=== PATIENT | female | born 1935 | race Caucasian/White ===

== ENCOUNTER 2016-11-07 02:34 | Emergency (ER) | payer MEDICARE ==
[2016-11-07 02:54] VITALS: RESP 18
[2016-11-07 03:51] LABS: BASO % 0.5 % (0.0-2.0); EOS # 0.1 K/uL (0.0-0.7); EOS % 1.3 % (0.0-4.0); HEMATOCRIT 40.6 % (34.0-47.0); LYMPH # 1.5 K/uL (1.0-4.3); MEAN CELL VOLUME 91.8 fL (81.0-99.0); MEAN CORPUSCULAR HEMOGLOBIN 31.3 pg (27.0-31.0); MEAN CORPUSCULAR HGB CONC 34.1 g/dL (33.0-37.0); MEAN PLATELET VOLUME 10.6 fL (7.2-11.7); MONO # 0.4 K/uL (0.0-0.8); MONO % 8.8 % (0.0-10.0); RED CELL DISTRIBUTION WIDTH 14.3 % (11.5-14.5); WHITE BLOOD COUNT 5.1 K/uL (4.8-10.8)
[2016-11-07 03:52] LABS: CHLORIDE 98 mmol/L (98-107); SODIUM 133 mmol/L (132-148)
[2016-11-07 03:55] LABS: ALB/GLOB RATIO 0.7 (1.0-2.1); ALKALINE PHOSPHATASE 219 U/L (38-126); ALT/SGPT 89 U/L (9-52); AST/SGOT 91 U/L (14-36); BILIRUBIN,TOTAL 0.9 mg/dL (0.2-1.3); BLOOD UREA NITROGEN 18 mg/dL (7-17); CARBON DIOXIDE 19 mmol/L (22-30); GFR AFRICAN-AMERICAN > 60; GLUCOSE,RANDOM 212 mg/dL (65-105); TOTAL PROTEIN 8.5 g/dL (6.3-8.3)
[2016-11-07 03:56] LABS: CALCIUM 8.8 mg/dl (8.6-10.4)
[2016-11-07] MEDS ORDERED: Sodium Chloride 0.9% 500 ML IV STA (04:06)
[2016-11-07] MEDS ORDERED: Sodium Chloride 0.9% 500 ML IV ONE ×2 (04:06→04:11)
--- NOTE | 2016-11-07 04:16 | CT ---
EXAM: CT Head Without Intravenous Contrast CLINICAL HISTORY: 81 years old, female; Pain; Headache; Headache not specified TECHNIQUE: Axial computed tomography images of the head/brain without intravenous contrast. All CT scans at this facility use one or more dose reduction techniques, viz.: automated exposure control; ma/kV adjustment per patient size (including targeted exams where dose is matched to indication; i.e. head); or iterative reconstruction technique. COMPARISON: No relevant prior studies available. FINDINGS: Brain: Mild atrophy. No intracranial hemorrhage. No mass. No definite edema. Ventricles: No hydrocephalus. Bones/joints: No acute fracture. Soft tissues: Unremarkable. Vasculature: Atherosclerotic disease of intracranial arteries. Sinuses: Scattered mild mucosal thickening of ethmoid sinuses. Mastoid air cells: No mastoid effusion. Orbits: Unremarkable as visualized. IMPRESSION: 1. No acute intracranial abnormality. 2. Incidental/non-acute findings are described above.
--- NOTE | 2016-11-07 05:24 | C.PDOC ---
History Of Present Illness 81 year old female with a Hx of vertigo who presents to the ER with a complaint of a headache. Patient states she checked her BP at home with her which showed a high reading which prompted visit. Patient states the headache has improved somewhat but still feels dizzy described as spinning sensation similar to her vertigo sx. Patient notes she has not taken her meclizine in the last few days. Pt also c/o of dry cough intermittently x 4 days. Denies weakness, visual complaints, chest pain, palpitations, nausea, or vomiting. Time Seen by Provider: 11/07/16 03:05 Chief Complaint (Nursing): Headache History Per: Patient History/Exam Limitations: no limitations Onset/Duration Of Symptoms: Hrs Current Symptoms Are (Timing): Still Present Severity: Mild Preceeding Symptoms: None Associated Symptoms: denies: Photophobia, Blurred Vision, Nausea, Vomiting, Extremity Weakness Recent travel outside of the [place]: No Past Medical History Reviewed: Historical Data, Nursing Documentation, Vital Signs Vital Signs: Last Vital Signs Temp 97.5 F L 11/07/16 02:50 Pulse 78 11/07/16 05:49 Resp 18 11/07/16 05:49 BP 175/67 H 11/07/16 05:49 Pulse Ox 98 11/07/16 06:03 - Medical History PMH: HTN, Hypothyroidism Surgical History: No Surg Hx Family History: States: Unknown Family Hx - Social History Hx Alcohol Use: No Hx Substance Use: No - Immunization History Hx Tetanus Toxoid Vaccination: No Hx Influenza Vaccination: Yes Hx Pneumococcal Vaccination: Yes Review Of Systems Constitutional: Negative for: Fever, Chills Cardiovascular: Negative for: Chest Pain, Palpitations Gastrointestinal: Negative for: Nausea, Vomiting, Diarrhea Neurological: Positive for: Headache, Dizziness. Negative for: Weakness, Numbness Physical Exam - Physical Exam Appears: Non-toxic, Other (Alert, Awake) Skin: Normal Color, Warm, Dry, No Other (petechial rash) Head: Atraumatic, Normacephalic Eye(s): bilateral: Normal Inspection, EOMI Ear(s): Bilateral: Normal Oral Mucosa: Moist, No Other (petechiae) Neck: Normal, Supple Chest: Symmetrical, No Tenderness Cardiovascular: Rhythm Regular, No Murmur Respiratory: Normal Breath Sounds, No Rales, No Rhonchi, No Wheezing Gastrointestinal/Abdominal: Soft, No Tenderness Extremity: Normal ROM (x4), No Pedal Edema Neurological/Psych: Oriented x3, Normal Speech, Normal Cognition Gait: Steady (came in ambulatory) ED Course And Treatment - Laboratory Results Result Diagrams: 11/07/16 03:39 11/07/16 03:39 O2 Sat by Pulse Oximetry: 98 (Room air) Pulse Ox Interpretation: Normal - CT Scan/US CT Head Other Rad Studies (CT/US): Read By Radiologist, Radiology Report Reviewed CT/US Interpretation: EXAM: CT Head Without Intravenous Contrast. CLINICAL HISTORY: 81 years old, female; Pain; Headache; Headache not specified. TECHNIQUE: Axial computed tomography images of the head/brain without intravenous contrast. All CT scans at. this facility use one or more dose reduction techniques, viz.: automated exposure control; ma/kV. adjustment per patient size (including targeted exams where dose is matched to indication; i.e. head);. or iterative reconstruction technique. COMPARISON: No relevant prior studies available. FINDINGS: Brain: Mild atrophy. No intracranial hemorrhage. No mass. No definite edema. Ventricles: No hydrocephalus. Bones/ joints: No acute fracture. Soft tissues: Unremarkable. Vasculature: Atherosclerotic disease of intracranial arteries. Sinuses: Scattered mild mucosal thickening of ethmoid sinuses. Mastoid air cells: No mastoid effusion. Orbits: Unremarkable as visualized. IMPRESSION: 1. No acute intracranial abnormality. 2. Incidental/non-acute findings are described above. Progress Note: EKG and head CT ordered. Antivert, zofran, and IV fluids administered. Labs results reviewed, no gross abnormalities noted, other than Plt 75- but pt with no petechiae. Patient is currently stable. Patient understands and agrees with treatment plan and is requesting to leave and will follow up with PMD in 1-2 days. Patient states she will wait until morning when her friend can pick her up. Reevaluation Time: 06:22 Reassessment Condition: Improved (Pt remains stable. BP elevated, but no longer dizzy, no headache. Pt has all meds and reports that she will take her meds at home) Disposition - Disposition Referrals: Grey Meza MD [Primary Care Provider] - Disposition: HOME/ ROUTINE Disposition Time: 06:30 Condition: STABLE Instructions: Vertigo (ED) Forms: [employer] (Urdu) - Clinical Impression Clinical Impression: Vertigo - Scribe Statement The provider has reviewed the documentation as recorded by the Scribe Jamin Christianson All medical record entries made by the Radhaibe were at my direction and personally dictated by me. I have reviewed the chart and agree that the record accurately reflects my personal performance of the history, physical exam, medical decision making, and the department course for this patient. I have also personally directed, reviewed, and agree with the discharge instructions and disposition.
[2016-11-07 06:04] VITALS: O2SAT 98
[2016-11-07 06:48] VITALS: BP 154/80; PULSE 80; TEMP 98
--- NOTE | 2016-11-09 09:24 | CARD ---
APPROVED REPORT EKG Measurement Heart [id number] [place] 186P11 [id number] <Conclusion> Normal sinus rhythm Normal ECG
== END 2016-11-07 06:48 | disposition home or self-care (01) ==
LOC: SUPCPDRO 02:34 → C.ER 02:34
DX: I10 Essential (primary) hypertension (principal); R42 Dizziness and giddiness
CPT/HCPCS: 70450; 80053; 85025; 93005; 96374; 99285; J2405; J7040

== ENCOUNTER 2017-12-31 09:28 | Emergency (ER) | payer MEDICARE ==
[2017-12-31 10:05] LABS: BASO % 0.6 % (0.0-2.0); EOS # 0.1 K/uL (0.0-0.7); EOS % 0.9 % (0.0-4.0); HEMOGLOBIN 12.4 g/dL (11.0-16.0); LYMPH # 1.3 K/uL (1.0-4.3); LYMPH % 20.6 % (20.0-40.0); MEAN CELL VOLUME 92.6 fL (81.0-99.0); MEAN CORPUSCULAR HEMOGLOBIN 32.1 pg (27.0-31.0); MEAN CORPUSCULAR HGB CONC 34.6 g/dL (33.0-37.0); MEAN PLATELET VOLUME 10.5 fL (7.2-11.7); MONO # 0.4 K/uL (0.0-0.8); MONO % 7.4 % (0.0-10.0); NEUT # 4.3 K/uL (1.8-7.0); NEUT % 70.5 % (50.0-75.0); NRBC % 0.1 % (0.0-2.0); RBC 3.85 Mil/uL (3.80-5.20); WHITE BLOOD COUNT 6.1 K/uL (4.8-10.8)
[2017-12-31 10:20] LABS: ALB/GLOB RATIO 0.7 (1.0-2.1); ALBUMIN 3.6 g/dL (3.5-5.0); BLOOD UREA NITROGEN 23 mg/dL (7-17); CALCIUM 8.6 mg/dl (8.6-10.4); GFR NON-AFRICAN AMERICAN 53
[2017-12-31] MEDS ORDERED: Aluminum Hydroxide/Magnesium Hydroxide Susp (30 mL) PO STA (10:21)
[2017-12-31 10:26] LABS: ALT/SGPT 66 U/L (9-52); AST/SGOT 105 U/L (14-36)
[2017-12-31] MEDS ORDERED: Aluminum Hydroxide/Magnesium Hydroxide Susp (30 mL) ONE (10:37)
[2017-12-31 10:48] LABS: B-TYPE NATRIURETIC PEPTIDE 471 pg/mL (0-900)
[2017-12-31 11:38] LABS: LIPASE 192 U/L (23-300)
--- NOTE | 2017-12-31 11:38 | RAD ---
Date of service: 12/31/2017 PROCEDURE: CHEST RADIOGRAPH, 1 VIEW HISTORY: chest pain COMPARISON: None available. FINDINGS: LUNGS: No infiltrate. Linear scar/atelectasis extending from left hilum. PLEURA: No pneumothorax or pleural fluid seen. CARDIOVASCULAR: Normal heart size. Mild congestive change. OSSEOUS STRUCTURES: No significant abnormalities. VISUALIZED UPPER ABDOMEN: Normal. OTHER FINDINGS: None. IMPRESSION: Mild congestive change. No infiltrate. No pleural effusion.
[2017-12-31 12:05] VITALS: O2SAT 100
--- NOTE | 2017-12-31 12:14 | US ---
HISTORY: elevated LFT's COMPARISON: None available. TECHNIQUE: Sonographic evaluation of the abdomen. FINDINGS: LIVER: Measures 15.4 cm in sagittal dimension. Hepatic contour appears nodular. Heterogeneous hepatic parenchyma may be seen in setting of hepatic parenchymal disease or fatty infiltration. No focal hepatic mass identified. The main portal vein appears patent with normal directional flow. No intrahepatic bile duct dilatation. GALLBLADDER: Not visualized. COMMON BILE DUCT: Measures 8 mm. PANCREAS: Not well visualized. RIGHT KIDNEY: Measures 12.2 x 4.3 x 4.4cm. No obstructing calculus or hydronephrosis identified. LEFT KIDNEY: Measures 11.1 x 4.5 x 5.3cm. No obstructing calculus or hydronephrosis identified. SPLEEN: Measures approximately 15.2 cm. AORTA: Limited visualization appears grossly unremarkable. IVC: Limited visualization appears grossly unremarkable. OTHER FINDINGS: Small upper abdominal ascites. IMPRESSION: Heterogeneous hepatic parenchyma may be seen in setting of hepatic parenchymal disease or fatty infiltration. Hepatic contour appears nodular. Correlate clinically. Small upper abdominal ascites. Dilated common bile duct measures approximately 8 mm. The gallbladder is not visualized; correlate for cholecystectomy. Splenomegaly.
--- NOTE | 2017-12-31 13:36 | C.PDOC ---
History Of Present Illness 82 y/o female presents to ED with c/o epigastric abdominal pain since this morning. Patient states pain is consistent with gastritis and reflux, took Taylor seltzer with some relief. Patient denies chest pain, sob, nausea, vomiting or any other complaints at this time. Time Seen by Provider: 12/31/17 09:37 Chief Complaint (Nursing): Chest Pain History Per: Patient History/Exam Limitations: no limitations Onset/Duration Of Symptoms: Days Current Symptoms Are (Timing): Still Present Past Medical History Reviewed: Historical Data, Nursing Documentation, Vital Signs Vital Signs: Last Vital Signs Temp 98.4 F 12/31/17 12:01 Pulse 71 12/31/17 12:01 Resp 16 12/31/17 12:01 BP 132/78 12/31/17 12:01 Pulse Ox 100 12/31/17 12:01 - Medical History PMH: HTN, Hypothyroidism Surgical History: No Surg Hx Family History: States: No Known Family Hx - Social History Hx Alcohol Use: No Hx Substance Use: No - Immunization History Hx Tetanus Toxoid Vaccination: No Hx Influenza Vaccination: Yes Hx Pneumococcal Vaccination: Yes Review Of Systems Constitutional: Negative for: Fever, Chills Cardiovascular: Negative for: Chest Pain Respiratory: Negative for: Shortness of Breath Gastrointestinal: Positive for: Abdominal Pain. Negative for: Nausea, Vomiting, Diarrhea Physical Exam - Physical Exam Appears: Non-toxic, No Acute Distress Skin: Warm, Dry, No Rash Head: Atraumatic, Normacephalic Eye(s): bilateral: Normal Inspection Oral Mucosa: Moist Neck: Normal ROM, Supple Cardiovascular: Rhythm Regular Respiratory: Normal Breath Sounds, No Rales, No Rhonchi, No Wheezing Gastrointestinal/Abdominal: Soft, No Tenderness, No Guarding, No Rebound Back: No CVA Tenderness Neurological/Psych: Oriented x3, Normal Speech, Normal Cognition ED Course And Treatment - Laboratory Results Result Diagrams: 12/31/17 10:02 12/31/17 10:02 ECG: Interpreted By Me, Viewed By Me ECG Rhythm: Sinus Rhythm Rate From EC (BPM ) O2 Sat by Pulse Oximetry: 100 (RA) Pulse Ox Interpretation: Normal Progress Note: On re evaluation patient states she feels better and agrees to be discharged with follow up to PMD in 1-2 days. Disposition - Disposition Referrals: Grey Meza MD [Staff Provider] - Disposition: HOME/ ROUTINE Disposition Time: 12:00 Condition: IMPROVED Additional Instructions: MACK RICARDO, thank you for letting us take care of you today. The emergency medical care you received today was directed at your acute symptoms. If you were prescribed any medication, please fill it and take as directed. It may take several days for your symptoms to resolve. Return to the Emergency Department if your symptoms worsen, do not improve, or if you have any other problems. Please contact your doctor or call one of the physicians/clinics you have been referred to that are listed on the Patient Visit Information form that is included in your discharge packet. Bring any paperwork you were given at dis charge with you along with any medications you are taking to your follow up visit. Our treatment cannot replace ongoing medical care by a primary care provider outside of the emergency department. Thank you for allowing the [facility] team to be part of your care today. Follow up with your primary care doctor in 2-3 days for re-evaluation and further management. Prescriptions: Famotidine [Pepcid] 20 mg PO BID #14 tab Instructions: Dolphin Diet, Gastritis (DC) Forms: [employer] (Beninese) - Clinical Impression Clinical Impression: Gastritis - Scribe Statement The provider has reviewed the documentation as recorded by the Scribe Elvis Lopez All medical record entries made by the Radhaibe were at my direction and person ally dictated by me. I have reviewed the chart and agree that the record accurately reflects my personal performance of the history, physical exam, medical decision making, and the department course for this patient. I have also personally directed, reviewed, and agree with the discharge instructions and disposition.
[2017-12-31 13:39] VITALS: BP 134/80; PULSE 76; RESP 18; TEMP 97.5
--- NOTE | 2018-01-04 17:57 | CARD ---
APPROVED REPORT Date of service: 12/31/2017 EKG Measurement Heart [id number] [place] [id number] [id number] <Conclusion> Normal sinus rhythm Nonspecific ST abnormality Abnormal ECG
== END 2017-12-31 13:39 | disposition home or self-care (01) ==
LOC: C.ER 09:28
DX: K29.70 Gastritis, unspecified, without bleeding (principal)

== ENCOUNTER 2018-01-11 14:21 | Emergency (ER) | payer MEDICARE ==
[2018-01-11] MEDS ORDERED: Sodium Chloride 0.9% 1,000 ML IV ONE (15:14)
[2018-01-11 15:16] LABS: BASO % 0.6 % (0.0-2.0); EOS # 0.1 K/uL (0.0-0.7); EOS % 1.8 % (0.0-4.0); HEMOGLOBIN 13.3 g/dL (11.0-16.0); LYMPH # 1.4 K/uL (1.0-4.3); LYMPH % 28.1 % (20.0-40.0); MEAN CELL VOLUME 94.5 fL (81.0-99.0); MEAN CORPUSCULAR HEMOGLOBIN 31.9 pg (27.0-31.0); MEAN CORPUSCULAR HGB CONC 33.8 g/dL (33.0-37.0); MEAN PLATELET VOLUME 10.5 fL (7.2-11.7); MONO # 0.3 K/uL (0.0-0.8); MONO % 6.8 % (0.0-10.0); NEUT # 3.1 K/uL (1.8-7.0); NEUT % 62.7 % (50.0-75.0); NRBC % 0.1 % (0.0-2.0); RBC 4.16 Mil/uL (3.80-5.20); RED CELL DISTRIBUTION WIDTH 14.5 % (11.5-14.5); WHITE BLOOD COUNT 4.9 K/uL (4.8-10.8)
[2018-01-11 15:30] LABS: ALB/GLOB RATIO 0.7 (1.0-2.1); ALBUMIN 3.8 g/dL (3.5-5.0); ALT/SGPT 67 U/L (9-52); AST/SGOT 110 U/L (14-36); BLOOD UREA NITROGEN 19 mg/dL (7-17); CALCIUM 8.6 mg/dl (8.6-10.4); GFR NON-AFRICAN AMERICAN > 60
[2018-01-11 15:32] LABS: VENOUS BLOOD GAS BASE EXCESS 0.8 mmol/L (0.0-2.0); VENOUS BLOOD GAS PCO2 46 mmHg (40-60); VENOUS BLOOD GAS PO2 27 mm/Hg (30-55); VENOUS BLOOD PH 7.37 (7.32-7.43)
[2018-01-11] MEDS ORDERED: (Novolin R) Insulin Human Regular 100 units/ml vial IVP STA (15:32)
[2018-01-11] MEDS ORDERED: Sodium Chloride 0.9% 1,000 ML ONE (15:35)
[2018-01-11] MEDS ORDERED: (Novolin R) Insulin Human Regular 100 units/ml vial ONE (15:42)
--- NOTE | 2018-01-11 16:16 | C.PDOC ---
History Of Present Illness 82 y/o female,w/PMhx of Diabetes and HTN, presents to the ER for evaluation of high blood sugar levels. Patient states that she was seen by her PMD and her blood sugar levels were found to be greater than 500 in the office. pt was reportly "confused", although she is oriented x 3 in er. Her PMD advised her to visit the ER. Denies having headache, dizziness, CP, SOB, nausea, and vomiting. Time Seen by Provider: 01/11/18 15:00 Chief Complaint (Nursing): High Blood Sugar History Per: Patient History/Exam Limitations: no limitations Onset/Duration Of Symptoms: Hrs Current Symptoms Are (Timing): Still Present Severity: Moderate Past Medical History Reviewed: Historical Data, Nursing Documentation, Vital Signs Vital Signs: Last Vital Signs Temp 97.7 F 01/11/18 14:34 Pulse 76 01/11/18 14:34 Resp 16 01/11/18 14:34 BP 143/80 01/11/18 14:34 Pulse Ox 100 01/11/18 14:34 - Medical History PMH: Diabetes, HTN, Hypothyroidism Surgical History: No Surg Hx Family History: States: No Known Family Hx - Social History Hx Alcohol Use: No Hx Substance Use: No - Immunization History Hx Tetanus Toxoid Vaccination: No Hx Influenza Vaccination: Yes Hx Pneumococcal Vaccination: Yes Review Of Systems Except As Marked, All Systems Reviewed And Found Negative. Constitutional: Negative for: Fever, Chills Cardiovascular: Negative for: Chest Pain Respiratory: Negative for: Shortness of Breath Gastrointestinal: Negative for: Nausea, Vomiting Physical Exam - Physical Exam Appears: Non-toxic, No Acute Distress Skin: Normal Color, Warm, Dry Head: Atraumatic, Normacephalic Eye(s): bilateral: Normal Inspection Nose: Normal Oral Mucosa: Moist Neck: Supple Chest: Symmetrical Cardiovascular: Rhythm Regular Respiratory: Normal Breath Sounds, No Rales, No Rhonchi, No Wheezing Gastrointestinal/Abdominal: Normal Exam, Soft, No Tenderness, No Guarding, No Rebound Neurological/Psych: Oriented x3, Normal Speech ED Course And Treatment - Laboratory Results Result Diagrams: 01/11/18 15:10 01/11/18 15:10 ECG: Interpreted By Me, Viewed By Me ECG Rhythm: Sinus Rhythm Interpretation Of ECG: NSR with no ST/T wave changes Rate From EC O2 Sat by Pulse Oximetry: 100 (RA) Pulse Ox Interpretation: Normal - Radiology CXR: Interpreted by Me, Viewed By Me CXR Interpretation: Yes: No Acute Disease Medical Decision Making Medical Decision Making: Plan: --Labs --EKG --UA --Insulin IV --IV Fluids labs ct neg. noted mild elevated lfts. ct shows cirrhotic liver. abd soft nottp. lfts no interval change. notified of finds advised outpt [facility]. n [facility] e[facility] of d[facility] Disposition - Disposition Disposition: HOME/ ROUTINE Disposition Time: 21:00 Condition: GOOD Additional Instructions: return to er with worsening symptoms or concerns. please discuss all lab tests with your doctor. you will need further testing as an outpatient. return immedaitely with any worsening. Instructions: Hyperglycemia, Adult Forms: [employer] ([place]) - Clinical Impression Clinical Impression: Hyperglycemia - Scribe Statement The provider has reviewed the documentation as recorded by the Radhaibe Mis Kitchen Provider Attestation: All medical record entries made by the Scribe were at my direction and personally dictated by me. I have reviewed the chart and agree that the record accurately reflects my personal performance of the history, physical exam, medical decision making, and the department course for this patient. I have also personally directed, reviewed, and agree with the discharge instructions and disposition.
--- NOTE | 2018-01-11 16:23 | RAD ---
Date of service: 01/11/2018 HISTORY: hyperglycemia COMPARISON: 12/31/2017 FINDINGS: LUNGS: The lungs are well inflated and clear. There is linear scarring in the left lobe there is mild pulmonary venous congestion. PLEURA: No pleural effusions or pneumothorax. CARDIOVASCULAR: There is mild cardiomegaly. Atherosclerotic aortic arch calcifications are present. OSSEOUS STRUCTURES: Within normal limits for the patient's age. VISUALIZED UPPER ABDOMEN: Normal. OTHER FINDINGS: None. IMPRESSION: No active pulmonary disease.
[2018-01-11] MEDS ORDERED: Magnesium Sulfate 1 gm in D5W 1 GM/100 ML BAG IVPB ONE ×2 (17:44→18:00)
[2018-01-11 18:31] VITALS: O2SAT 100
[2018-01-11 18:42] LABS: SQUAMOUS EPITHIAL 1 /hpf (0-5); URINE BILIRUBIN NEGATIVE (NEGATIVE); URINE BLOOD 1+ (NEGATIVE); URINE CLARITY Clear (Clear); URINE COLOR Yellow (YELLOW); URINE GLUCOSE (UA) 3+ mg/dL (Normal); URINE LEUKOCYTE ESTERASE NEG Leu/uL (Negative); URINE PROTEIN NEGATIVE (NEGATIVE)
[2018-01-11 19:40] VITALS: BP 138/63; RESP 20
[2018-01-11 21:48] VITALS: PULSE 84; TEMP 97.9
--- NOTE | 2018-01-12 08:32 | CT ---
Date of service: 01/11/2018 PROCEDURE: CT HEAD WITHOUT CONTRAST. HISTORY: ams COMPARISON: 11/07/2016 TECHNIQUE: Axial computed tomography images were obtained through the head/brain without intravenous contrast. Radiation dose: Total exam DLP = 1108.02 mGy-cm. This CT exam was performed using one or more of the following dose reduction techniques: Automated exposure control, adjustment of the mA and/or kV according to patient size, and/or use of iterative reconstruction technique. FINDINGS: HEMORRHAGE: No intracranial hemorrhage. BRAIN: No mass effect or edema. No significant atrophy. Minimal chronic periventricular white matter lucency consistent with microvascular ischemic change. No evidence of acute infarct. 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 VENTRICLES: Unremarkable. No hydrocephalus. CALVARIUM: Unremarkable. PARANASAL SINUSES: Unremarkable as visualized. No significant inflammatory changes. MASTOID AIR CELLS: Unremarkable as visualized. No inflammatory changes. OTHER FINDINGS: None. IMPRESSION: No intracranial mass, hemorrhage or evidence of acute infarct. Mild chronic white matter ischemic change. 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 The preliminary findings for this examination were reported by [facility] at 8:28 p.m. on 01/11/2018. There is concurrence of this report with the preliminary findings.
--- NOTE | 2018-01-12 13:25 | CT ---
Date of service: 01/11/2018 PROCEDURE: CT Abdomen and Pelvis without intravenous contrast HISTORY: abnormal lfts COMPARISON: Not available TECHNIQUE: Without contrast.. Contrast dose: 0 Radiation dose: Total exam DLP = 1041.25 mGy-cm. This CT exam was performed using one or more of the following dose reduction techniques: Automated exposure control, adjustment of the mA and/or kV according to patient size, and/or use of iterative reconstruction technique. FINDINGS: LOWER THORAX: Unremarkable. LIVER: Nodular contour consistent with hepatic cirrhosis. Normal size. No biliary dilatation. No discrete mass. Mildly heterogeneous attenuation. This is a nonspecific finding. GALLBLADDER AND BILE DUCTS: Status post cholecystectomy. There is dilation of the common bile duct up to 13 mm. There is no associated intrahepatic bile duct dilatation. This may be due to prior cholecystectomy and age related ectasia. Correlate with laboratory evaluation for evidence of biliary obstruction. PANCREAS: Unremarkable. No gross lesion or ductal dilatation. SPLEEN: Splenomegaly. The spleen measures approximately 16.4 cm in greatest dimension. No focal mass. ADRENALS: Unremarkable. No mass. KIDNEYS AND URETERS: Unremarkable. No hydronephrosis. No solid mass. VASCULATURE: Unremarkable. No aortic aneurysm. There is atherosclerotic calcification of the abdominal aorta. BOWEL: There is marked circumferential mural thickening of the proximal duodenum involving the 1st and 2nd portions. This is a nonspecific finding. No other abnormal bowel loops are identified. There is no bowel obstruction. There are surgical clips seen adjacent to the gastric cardia of uncertain significance. Please correlate with surgical history. APPENDIX: Unremarkable. Normal appendix. PERITONEUM: Mild ascites. There is moderate mesenteric edema noted common nonspecific. LYMPH NODES: There is an isolated left para-aortic retroperitoneal node, 13 mm in short axis. There is no generalized lymphadenopathy. Shotty subcentimeter retroperitoneal lymph nodes are identified. BLADDER: Unremarkable. REPRODUCTIVE: Unremarkable uterus BONES: No acute fracture. OTHER FINDINGS: None. IMPRESSION: Hepatic cirrhosis. Splenomegaly. Ascites. Cholecystectomy. Dilated common bile duct without associated intrahepatic biliary dilatation. Uncertain significance. Correlate with laboratory evaluation for any evidence of biliary obstruction. Mural thickening of the proximal duodenum, nonspecific. Mesenteric edema, nonspecific. Minor findings as above. The preliminary findings for this examination were reported by [facility] at 8:48 p.m. on 01/11/2018. There is concurrence of this report with the preliminary findings.
--- NOTE | 2018-01-12 17:08 | CARD ---
APPROVED REPORT Date of service: 01/11/2018 EKG Measurement Heart [id number] [place] 178P89 [id number] <Conclusion> Normal sinus rhythm Low voltage QRS Borderline ECG
== END 2018-01-11 21:48 | disposition home or self-care (01) ==
LOC: C.ER 14:21
DX: E11.65 Type 2 diabetes mellitus with hyperglycemia (principal); I10 Essential (primary) hypertension; E03.9 Hypothyroidism, unspecified
CPT/HCPCS: 70450; 71045; 74176; 80053; 81001; 82009; 82803; 82948; 83735; 83930; 84443; 84484; 85025; 93005; 96361; 96365; 96375; 99285; J3475; J7030

== ENCOUNTER 2018-03-12 15:27 | Inpatient (IN) | payer MEDICARE ==
--- NOTE | 2018-03-12 16:15 | C.PDOC ---
History Of Present Illness Patient is a 83 year old female who presents to the ED c/o generalized malaise, weakness, nausea, body aches and states that "she does not feel well and feels confused." Patient notes that her blood sugar was 500 yesterday. Patient denies fever, chills, CP, SOB, vomiting, headache, or diarrhea. <Marifer Reza - Last Filed: 03/12/18 19:02> History Per: Patient History/Exam Limitations: no limitations Onset/Duration Of Symptoms: Hrs Current Symptoms Are (Timing): Still Present Associated Symptoms: denies: Chest Pain, Headache Recent travel outside of the [place]: No Additional History Per: Patient <Marifer Reza - Last Filed: 03/12/18 19:02> <Briana Benavidez - Last Filed: 03/12/18 20:43> Chief Complaint (Nursing): High Blood Pressure Past Medical History Reviewed: Historical Data, Nursing Documentation, Vital Signs Vital Signs: Last Vital Signs Temp 98.4 F 03/12/18 15:40 Pulse 60 03/12/18 15:40 Resp 18 03/12/18 15:40 BP 124/56 L 03/12/18 15:40 Pulse Ox 100 03/12/18 15:40 - Medical History PMH: Diabetes, HTN, Hypothyroidism Surgical History: No Surg Hx Family History: States: Unknown Family Hx - Social History Hx Alcohol Use: No Hx Substance Use: No - Immunization History Hx Tetanus Toxoid Vaccination: No Hx Influenza Vaccination: Yes Hx Pneumococcal Vaccination: Yes <Marifer Reza - Last Filed: 03/12/18 19:02> Vital Signs: Last Vital Signs Temp 97.5 F L 03/12/18 18:09 Pulse 55 L 03/12/18 18:09 Resp 16 03/12/18 18:09 BP 118/77 03/12/18 18:09 Pulse Ox 100 03/12/18 19:07 <Briana Benavidez - Last Filed: 03/12/18 20:43> Review Of Systems Constitutional: Positive for: Weakness, Malaise, Other (body aches). Negative for: Fever, Chills Cardiovascular: Negative for: Chest Pain Respiratory: Negative for: Shortness of Breath Gastrointestinal: Positive for: Nausea. Negative for: Vomiting, Diarrhea <Marifer Reza - Last Filed: 03/12/18 19:02> Physical Exam - Physical Exam Appears: Non-toxic, Other (ill appearing ) Skin: Normal Color, Warm, Dry Head: Atraumatic, Normacephalic Eye(s): bilateral: Normal Inspection Oral Mucosa: Moist Neck: Normal ROM, Supple Chest: Symmetrical Cardiovascular: Rhythm Regular Respiratory: Normal Breath Sounds, No Rales, No Rhonchi, No Wheezing Gastrointestinal/Abdominal: Soft, No Tenderness Extremity: Normal ROM, Pedal Edema (bilateral ) Neurological/Psych: Oriented x3 <Marifer Reza - Last Filed: 03/12/18 19:02> ED Course And Treatment - Laboratory Results Result Diagrams: 03/12/18 16:43 03/12/18 16:43 O2 Sat by Pulse Oximetry: 100 (on RA) Pulse Ox Interpretation: Normal - Radiology CXR: Interpreted by Me, Viewed By Me CXR Interpretation: Yes: No Acute Disease Progress Note: Bloodwork, EKG, CXR, Flu Swab, Urinalysis ordered. Zofran 4 mg IVP administered. Labs reviewed. Patient has elevated blood sugar at 225, low magnesium and calcium levels. Patient is negative for influenza. <MikyfernandoMarifer - Last Filed: 03/12/18 19:02> - Laboratory Results Result Diagrams: 03/12/18 16:43 03/12/18 16:43 <JerzyjenifferHannajennifer - Last Filed: 03/12/18 20:43> Disposition - Disposition Disposition Time: 19:02 <LibiaMarifer - Last Filed: 03/12/18 19:02> Discussed With : Jose Luis Pulliam Comment: accepted the pt on his service and took over the care at 8:42 PM Doctor Will See Patient In The: ED Counseled Patient/Family Regarding: Studies Performed, Diagnosis - POA Present On Arrival: Poor Glycemic Control <Briana Benavidez - Last Filed: 03/12/18 20:43> - Disposition Disposition: HOSPITALIZED Condition: FAIR Instructions: Weakness (ED) Forms: [employer] (Setswana) - Clinical Impression Clinical Impression: Confused, Weakness, Hyperammonemia, Ascites, Leg edema - PA / SILK SCREEN ETCHER / Resident Statement MD/DO has reviewed & agrees with the documentation as recorded. - Scribe Statement The provider has reviewed the documentation as recorded by the Scribe Chasity Pych All medical record entries made by the Tara were at my direction and personally dictated by me. I have reviewed the chart and agree that the record accurately reflects my personal performance of the history, physical exam, medi allyson decision making, and the department course for this patient. I have also personally directed, reviewed, and agree with the discharge instructions and disposition. <Marifer Reza - Last Filed: 03/12/18 19:02> Physician Patient Turnover Patient Signed Over To: Briana Benavidez Handoff Comments: dispo <Marifer Reza - Last Filed: 03/12/18 19:02> Decision To Admit <Marifer Reza - Last Filed: 03/12/18 19:02> - Pt Status Changed To: Hospital Disposition Of: Inpatient - Admit Certification Admit to Inpatient:: After my assessment, the patient will require hospitalization for at least two midnights. This is because of the severity of symptoms shown, intensity of services needed, and/or the medical risk in this patient being treated as an outpatient. - InPatient: Physician Admission Certification: I certify that this patient requires 2 or more midnights of care for the following reason:: After my assessment, the patient will require hospitalization for at least two midnights. This is because of the severity of symptoms shown, intensity of services needed, and/or the medical risk in this patient being treated as an outpatient. - . Bed Request Type: Regular Admitting Physician: Jose Luis Pulliam <Briana Benavidez - Last Filed: 03/12/18 20:43> - . Patient Diagnosis: Confused, Weakness, Hyperammonemia, Ascites, Leg edema
[2018-03-12 16:47] LABS: BASO % 0.8 % (0.0-2.0); EOS # 0.1 K/uL (0.0-0.7); EOS % 2.2 % (0.0-4.0); HEMOGLOBIN 12.3 g/dL (11.0-16.0); LYMPH # 1.6 K/uL (1.0-4.3); LYMPH % 27.6 % (20.0-40.0); MEAN CELL VOLUME 94.8 fL (81.0-99.0); MEAN CORPUSCULAR HEMOGLOBIN 32.1 pg (27.0-31.0); MEAN CORPUSCULAR HGB CONC 33.9 g/dL (33.0-37.0); MEAN PLATELET VOLUME 9.9 fL (7.2-11.7); MONO # 0.6 K/uL (0.0-0.8); MONO % 10.1 % (0.0-10.0); NEUT # 3.5 K/uL (1.8-7.0); NEUT % 59.3 % (50.0-75.0); NRBC % 0.1 % (0.0-2.0); RBC 3.83 Mil/uL (3.80-5.20); WHITE BLOOD COUNT 5.8 K/uL (4.8-10.8)
[2018-03-12 16:52] LABS: INR 1.2; PROTHROMBIN TIME 12.8 SECONDS (9.7-12.2)
[2018-03-12 17:02] LABS: ALB/GLOB RATIO 0.7 (1.0-2.1); ALBUMIN 3.4 g/dL (3.5-5.0); ALT/SGPT 52 U/L (9-52); AST/SGOT 88 U/L (14-36); BLOOD UREA NITROGEN 21 mg/dL (7-17); CALCIUM 8.1 mg/dl (8.6-10.4); GFR NON-AFRICAN AMERICAN 53; LIPASE 89 U/L (23-300)
[2018-03-12 17:14] LABS: B-TYPE NATRIURETIC PEPTIDE 548 pg/mL (0-900); CK-MB 2.08 ng/mL (0.0-3.38)
[2018-03-12 18:09] LABS: SQUAMOUS EPITHIAL 2 /hpf (0-5); URINE BACTERIA RARE (<OCC); URINE BILIRUBIN NEGATIVE (NEGATIVE); URINE BLOOD 1+ (NEGATIVE); URINE CLARITY Clear (Clear); URINE COLOR Yellow (YELLOW); URINE GLUCOSE (UA) NORMAL (Normal); URINE LEUKOCYTE ESTERASE NEG Leu/uL (Negative); URINE PROTEIN NEGATIVE (NEGATIVE)
--- NOTE | 2018-03-12 19:32 | RAD ---
HISTORY: 'Not feeling good' COMPARISON: Chest x-ray performed 01/11/18 TECHNIQUE: Chest, one view. FINDINGS: Examination limited by habitus and hypoinflation. LUNGS: Moderate pulmonary venous congestion and suspected infiltrate within the upper lobes. No significant pleural effusion or definite pneumothorax. CARDIOVASCULAR: Cardiomegaly. Atherosclerotic calcifications of an ectatic aorta. OSSEOUS STRUCTURES: Degenerative changes. Osseous demineralization. VISUALIZED UPPER ABDOMEN: Unremarkable. OTHER FINDINGS: None. IMPRESSION: Moderate pulmonary venous congestion and suspected infiltrate within the upper lobes.
[2018-03-12 20:29] LABS: VENOUS BLOOD GAS BASE EXCESS -2.6 mmol/L (0.0-2.0); VENOUS BLOOD GAS PCO2 43 mmHg (40-60); VENOUS BLOOD GAS PO2 26 mm/Hg (30-55); VENOUS BLOOD PH 7.34 (7.32-7.43)
[2018-03-12] MEDS ORDERED: Piperacillin/Tazobact 3.375 gm 100 ML IVPB STA (20:31)
[2018-03-12] MEDS ORDERED: Sodium Chloride 0.9% 1,000 ML IV ONE (20:34)
[2018-03-12] MEDS ORDERED: Piperacillin/Tazobact 3.375 gm 100 ML IVPB ONE (20:42)
--- NOTE | 2018-03-12 20:42 | CT ---
Date of service: 03/12/2018 PROCEDURE: CT HEAD WITHOUT CONTRAST. HISTORY: feeling confused COMPARISON: Noncontrast head CT performed 01/11/18 TECHNIQUE: Axial computed tomography images were obtained through the head/brain without intravenous contrast. Radiation dose: Total exam DLP = 819.39 mGy-cm. This CT exam was performed using one or more of the following dose reduction techniques: Automated exposure control, adjustment of the mA and/or kV according to patient size, and/or use of iterative reconstruction technique. FINDINGS: HEMORRHAGE: No intracranial hemorrhage. BRAIN: No mass effect or edema. Dense intracranial atherosclerosis. Chronic appearing lacunar type infarcts brainstem. Scattered periventricular and subcortical white matter hypodensities, which are nonspecific, but often seen with chronic microvascular ischemic disease. Please note that MRI with diffusion imaging is more sensitive in the detection of acute ischemic event. VENTRICLES: No hydrocephalus. CALVARIUM: Unremarkable. PARANASAL SINUSES: Unremarkable as visualized. No significant inflammatory changes. MASTOID AIR CELLS: Unremarkable as visualized. No inflammatory changes. OTHER FINDINGS: None. IMPRESSION: Nonspecific white matter changes as above. Chronic appearing lacunar type infarcts involving the brainstem. Preliminary impression was provided by [employer].
[2018-03-12 21:15] LABS: VENOUS BLOOD GAS PCO2 40 mmHg (40-60); VENOUS BLOOD GAS PO2 29 mm/Hg (30-55); VENOUS BLOOD PH 7.37 (7.32-7.43)
--- NOTE | 2018-03-12 22:23 | CP.PCM.HP ---
<Jaxson Morin - Last Filed: 03/12/18 22:35> History of Present Illness - History of Present Illness History of Present Illness: PGY-[address] History and [address] Pulliam Patient is a 83 year old female PMHx HTN, DM who presents due to confusion/altered mental status. Patient states that day prior to admission she checked her blood sugar and it was 560. She states that today she was not feeling well. When questioned, she stated that she just felt confused and not well and so called 911 and was brought to hospital via ambulance. She denies any symptoms other than confusion mild headache. On labwork, patient found to have elevated ammonia - she denies current alcohol use, stating that she used to drink when she was young, and denies any history of hepatitis or drug use. Accurate history difficult to obtain as patient does appear to have altered mental status. PMHx: DM, HTN - Denies CHF/any heart problems, denies history of liver dysfunction Surgeries: Prior surgery which she cannot remember (points to abdomen) Allergies: NKA Medications: Valsartan/HCTZ 320-25 mjg daily, Metoprolol Succinate 200 mg po daily, Norvasc 5 mg po daily, Jentadueto 2.5-1000 BID , Glimeperide 4 mg BID, terazosin 1 mg daily, omeprazone 20 mg poo daily, meclizine 25 mg prn dizzines, antacid, lasix 40 mg po daily Social: Denies current alcohol use, former smoker, denies drug use. Retired, lives alone in adult usp community. Family hxL unknown PMD: Dr. Jolly Present on Admission - Present on Admission Any Indicators Present on Admission: No Review of Systems - Review of Systems Systems not reviewed;Unavailable: Altered Mental Status - Constitutional Constitutional: Headache, Malaise - EENT Eyes: absent: Blurred Vision, Change in Vision - Cardiovascular Cardiovascular: Leg Edema. absent: Chest Pain, Dyspnea - Respiratory Respiratory: absent: Cough, Dyspnea - Gastrointestinal Gastrointestinal: Bloating. absent: Abdominal Pain, Diarrhea - Musculoskeletal Musculoskeletal: absent: Back Pain, Muscle Cramps - Neurological Neurological: Confusion. absent: Dizziness, Numbness - Psychiatric Psychiatric: absent: Anxiety, Depression - Endocrine Endocrine: absent: Polydipsia, Polyphagia - Hematologic/Lymphatic Hematologic: absent: Easy Bleeding, Easy Bruising Past Patient History - Infectious Disease Hx of Infectious Diseases: None - Past Social History Smoking Status: Never Smoked - CARDIAC Hx Hypertension: Yes - NEUROLOGICAL Hx Vertigo: Yes (does not take meclizine prescribed) - ENDOCRINE/METABOLIC Hx Hypothyroidism: Yes - GASTROINTESTINAL Hx Gastroesophageal Reflux: Yes - PSYCHIATRIC Hx Substance Use: No - SURGICAL HISTORY Hx Surgeries: No - ANESTHESIA Hx Anesthesia: No Meds Allergies/Adverse Reactions: Allergies Allergy/AdvReac Type Severity Reaction Status Date / Time No Known Allergies Allergy Verified 01/11/18 14:34 Physical Exam - Constitutional Appears: Confused - Head Exam Head Exam: ATRAUMATIC, NORMOCEPHALIC - Eye Exam Eye Exam: EOMI - ENT Exam ENT Exam: Mucous Membranes Moist - Respiratory Exam Respiratory Exam: Clear to Auscultation Bilateral, NORMAL BREATHING PATTERN. absent: Rhonchi, Wheezes - Cardiovascular Exam Cardiovascular Exam: REGULAR RHYTHM, +S1, +S2 - GI/Abdominal Exam GI & Abdominal Exam: Distended, Normal Bowel Sounds, Soft. absent: Tenderness - Extremities Exam Extremities exam: Positive for: pedal edema (pedal edema b/l) Additional comments: Area of erythema on RLE that is tender to touch - Neurological Exam Neurological exam: Altered - Psychiatric Exam Psychiatric exam: Normal Affect, Normal Mood - Skin Skin Exam: Dry, Intact Results - Vital Signs Recent Vital Signs: Last Vital Signs Temp 97.6 F 03/12/18 21:40 Pulse 84 03/12/18 21:40 Resp 17 03/12/18 21:40 BP 152/85 H 03/12/18 21:40 Pulse Ox 99 03/12/18 21:40 - Labs Result Diagrams: 03/12/18 16:43 03/12/18 16:43 Labs: Laboratory Results - last 24 hr 03/12/18 03/12/18 03/12/18 08:26 15:36 16:03 WBC RBC Hgb Hct MCV MCH MCHC RDW Plt Count MPV Neut % (Auto) Lymph % (Auto) [place] % (Auto) Eos % (Auto) Baso % (Auto) Neut # (Auto) Lymph # (Auto) [place] # (Auto) Eos # (Auto) Baso # (Auto) Differential Comment PT INR pO2 26 L VBG pH 7.34 VBG pCO2 43 VBG HCO3 21.4 VBG Total CO2 24.5 VBG O2 Sat (Calc) 62.3 VBG Base Excess -2.6 L VBG Potassium 3.9 A-a O2 Difference 70.0 Sodium 133.0 Chloride 102.0 Glucose 203 H Lactate 4.6 H* FiO2 21.0 Crit Value Called To Pramod eason Crit Value Called By Harris Crit Value Read Back Y Blood Gas Notified Time 2028 Potassium Carbon Dioxide Anion Gap BUN Creatinine Est GFR ( Amer) Est GFR (Non-Af Amer) POC Glucose (mg/dL) 225 H 216 H Random Glucose Calcium Magnesium Total Bilirubin AST ALT Alkaline Phosphatase Ammonia Total Creatine Kinase CK-MB (Mass) Troponin I NT-Pro-B Natriuret Pep Total Protein Albumin Globulin Albumin/Globulin Ratio Lipase TSH 3rd Generation Venous Blood Potassium 3.9 Urine Color Urine Clarity Urine pH Ur Specific Tiona Urine Protein Urine Glucose (UA) Urine Ketones Urine Blood Urine Nitrate Urine Bilirubin Urine Urobilinogen Ur Leukocyte Esterase Urine WBC (Auto) Urine RBC (Auto) Ur Squamous Epith Cells Urine Bacteria Influenza Typ A,B (EIA) 03/12/18 03/12/18 03/12/18 16:43 16:43 16:43 WBC 5.8 RBC 3.83 Hgb 12.3 Hct 36.3 MCV 94.8 MCH 32.1 H MCHC 33.9 RDW 15.0 H Plt Count 82 L MPV 9.9 Neut % (Auto) 59.3 Lymph % (Auto) 27.6 Marathon % (Auto) 10.1 H Eos % (Auto) 2.2 Baso % (Auto) 0.8 Neut # (Auto) 3.5 Lymph # (Auto) 1.6 Marathon # (Auto) 0.6 Eos # (Auto) 0.1 Baso # (Auto) 0.0 Differential Comment PT 12.8 H INR 1.2 pO2 VBG pH VBG pCO2 VBG HCO3 VBG Total CO2 VBG O2 Sat (Calc) VBG Base Excess VBG Potassium A-a O2 Difference Sodium 133 Chloride 99 Glucose Lactate FiO2 Crit Value Called To Crit Value Called By Crit Value Read Back Blood Gas Notified Time Potassium 3.8 Carbon Dioxide 22 Anion Gap 16 BUN 21 H Creatinine 1.0 Est GFR ( Amer) > 60 Est GFR (Non-Af Amer) 53 POC Glucose (mg/dL) Random Glucose 208 H D Calcium 8.1 L Magnesium 1.3 L Total Bilirubin 1.7 H AST 88 H ALT 52 D Alkaline Phosphatase 184 H D Ammonia Total Creatine Kinase 79 CK-MB (Mass) 2.08 Troponin I < 0.0120 NT-Pro-B Natriuret Pep 548 Total Protein 8.5 H Albumin 3.4 L Globulin 5.1 H Albumin/Globulin Ratio 0.7 L Lipase 89 TSH 3rd Generation Venous Blood Potassium Urine Color Urine Clarity Urine pH Ur Specific Tiona Urine Protein Urine Glucose (UA) Urine Ketones Urine Blood Urine Nitrate Urine Bilirubin Urine Urobilinogen Ur Leukocyte Esterase Urine WBC (Auto) Urine RBC (Auto) Ur Squamous Epith Cells Urine Bacteria Influenza Typ A,B (EIA) 03/12/18 03/12/18 03/12/18 16:43 16:47 17:48 WBC RBC Hgb Hct MCV MCH MCHC RDW Plt Count MPV Neut % (Auto) Lymph % (Auto) Marathon % (Auto) Eos % (Auto) Baso % (Auto) Neut # (Auto) Lymph # (Auto) [place] # (Auto) Eos # (Auto) Baso # (Auto) Differential Comment PT INR pO2 VBG pH VBG pCO2 VBG HCO3 VBG Total CO2 VBG O2 Sat (Calc) VBG Base Excess VBG Potassium A-a O2 Difference Sodium Chloride Glucose Lactate FiO2 Crit Value Called To Crit Value Called By Crit Value Read Back Blood Gas Notified Time Potassium Carbon Dioxide Anion Gap BUN Creatinine Est GFR ( Amer) Est GFR (Non-Af Amer) POC Glucose (mg/dL) Random Glucose Calcium Magnesium Total Bilirubin AST ALT Alkaline Phosphatase Ammonia 68 H Total Creatine Kinase CK-MB (Mass) Troponin I NT-Pro-B Natriuret Pep Total Protein Albumin Globulin Albumin/Globulin Ratio Lipase TSH 3rd Generation Venous Blood Potassium Urine Color Yellow Urine Clarity Clear Urine pH 5.0 Ur Specific Tiona 1.010 Urine Protein Negative Urine Glucose (UA) Normal Urine Ketones Negative Urine Blood 1+ H Urine Nitrate Negative Urine Bilirubin Negative Urine Urobilinogen 2.0 H Ur Leukocyte Esterase Neg Urine WBC (Auto) 3 Urine RBC (Auto) 7 H Ur Squamous Epith Cells 2 Urine Bacteria Rare Influenza Typ A,B (EIA) Negative for flu a/b 03/12/18 03/12/18 21:01 21:10 WBC RBC Hgb Hct MCV MCH MCHC RDW Plt Count MPV Neut % (Auto) Lymph % (Auto) Marathon % (Auto) Eos % (Auto) Baso % (Auto) Neut # (Auto) Lymph # (Auto) [place] # (Auto) Eos # (Auto) Baso # (Auto) Differential Comment PT INR pO2 29 L VBG pH 7.37 VBG pCO2 40 VBG HCO3 22.2 VBG Total CO2 24.3 VBG O2 Sat (Calc) 69.4 H VBG Base Excess -2.0 L VBG Potassium 3.6 A-a O2 Difference 71.0 Sodium 135.0 Chloride 103.0 Glucose 186 H Lactate 3.4 H FiO2 21.0 Crit Value Called To Sapira Crit Value Called By [employer]s Tester Crit Value Read Back Y Blood Gas Notified Time 2114 Potassium Carbon Dioxide Anion Gap BUN Creatinine Est GFR ( Amer) Est GFR (Non-Af Amer) POC Glucose (mg/dL) Random Glucose Calcium Magnesium Total Bilirubin AST ALT Alkaline Phosphatase Ammonia Total Creatine Kinase CK-MB (Mass) Troponin I NT-Pro-B Natriuret Pep 497 Total Protein Albumin Globulin Albumin/Globulin Ratio Lipase TSH 3rd Generation 18.20 H Venous Blood Potassium 3.6 Urine Color Urine Clarity Urine pH Ur Specific Tiona Urine Protein Urine Glucose (UA) Urine Ketones Urine Blood Urine Nitrate Urine Bilirubin Urine Urobilinogen Ur Leukocyte Esterase Urine WBC (Auto) Urine RBC (Auto) Ur Squamous Epith Cells Urine Bacteria Influenza Typ A,B (EIA) Assessment & Plan - Assessment and Plan (Free Text) Assessment: Elevated Ammonia/Altered Mental Status - Head CT 03/12: Nonspecific white matter changes and chronic appearing lacunar type infarct\ - Lactulose given in ED - Lactulose 20 g QID - dose confirmed with pharmacy - Abd US - f/u - IR consult paracentesis Infiltrate on CXR - CXR 03/12: Moderate pulmonary congestion and suspected infiltrate within upper lobes - Rocephin/Azithromycin DM - ISS - Accuchecks ACHS HTN - Losartan 100 daily - HCTZ 25 daily - Norvasc 5 daily - Terazosin 1 mg daily Pedal Edema - Home lasix 40 mg po daily restarted - denies hx of CHF, unknown why edema PPx - Heparin 5000 U SC daily d/w Dr. Shasha Morin, PGY-1 <Jose Luis Pulliam - Last Filed: 03/13/18 06:26> Results - Vital Signs Recent Vital Signs: Last Vital Signs Temp 97.6 F 03/13/18 00:00 Pulse 60 03/13/18 00:00 Resp 20 03/13/18 00:00 BP 139/80 03/13/18 00:00 Pulse Ox 97 03/13/18 00:00 - Labs Result Diagrams: 03/12/18 16:43 03/12/18 16:43 Labs: Laboratory Results - last 24 hr 03/12/18 03/12/18 03/12/18 08:26 15:36 16:03 WBC RBC Hgb Hct MCV MCH MCHC RDW Plt Count MPV Neut % (Auto) Lymph % (Auto) Marathon % (Auto) Eos % (Auto) Baso % (Auto) Neut # (Auto) Lymph # (Auto) [place] # (Auto) Eos # (Auto) Baso # (Auto) Differential Comment PT INR pO2 26 L VBG pH 7.34 VBG pCO2 43 VBG HCO3 21.4 VBG Total CO2 24.5 VBG O2 Sat (Calc) 62.3 VBG Base Excess -2.6 L VBG Potassium 3.9 A-a O2 Difference 70.0 Sodium 133.0 Chloride 102.0 Glucose 203 H Lactate 4.6 H* FiO2 21.0 Crit Value Called To Pramod eason Crit Value Called By Harris Crit Value Read Back Y Blood Gas Notified Time 2028 Potassium Carbon Dioxide Anion Gap BUN Creatinine Est GFR ( Amer) Est GFR (Non-Af Amer) POC Glucose (mg/dL) 225 H 216 H Random Glucose Calcium Magnesium Total Bilirubin AST ALT Alkaline Phosphatase Ammonia Total Creatine Kinase CK-MB (Mass) Troponin I NT-Pro-B Natriuret Pep Total Protein Albumin Globulin Albumin/Globulin Ratio Lipase TSH 3rd Generation Venous Blood Potassium 3.9 Urine Color Urine Clarity Urine pH Ur Specific Tiona Urine Protein Urine Glucose (UA) Urine Ketones Urine Blood Urine Nitrate Urine Bilirubin Urine Urobilinogen Ur Leukocyte Esterase Urine WBC (Auto) Urine RBC (Auto) Ur Squamous Epith Cells Urine Bacteria Influenza Typ A,B (EIA) 03/12/18 03/12/18 03/12/18 16:43 16:43 16:43 WBC 5.8 RBC 3.83 Hgb 12.3 Hct 36.3 MCV 94.8 MCH 32.1 H MCHC 33.9 RDW 15.0 H Plt Count 82 L MPV 9.9 Neut % (Auto) 59.3 Lymph % (Auto) 27.6 Marathon % (Auto) 10.1 H Eos % (Auto) 2.2 Baso % (Auto) 0.8 Neut # (Auto) 3.5 Lymph # (Auto) 1.6 [place] # (Auto) 0.6 Eos # (Auto) 0.1 Baso # (Auto) 0.0 Differential Comment PT 12.8 H INR 1.2 pO2 VBG pH VBG pCO2 VBG HCO3 VBG Total CO2 VBG O2 Sat (Calc) VBG Base Excess VBG Potassium A-a O2 Difference Sodium 133 Chloride 99 Glucose Lactate FiO2 Crit Value Called To Crit Value Called By Crit Value Read Back Blood Gas Notified Time Potassium 3.8 Carbon Dioxide 22 Anion Gap 16 BUN 21 H Creatinine 1.0 Est GFR ( Amer) > 60 Est GFR (Non-Af Amer) 53 POC Glucose (mg/dL) Random Glucose 208 H D Calcium 8.1 L Magnesium 1.3 L Total Bilirubin 1.7 H AST 88 H ALT 52 D Alkaline Phosphatase 184 H D Ammonia Total Creatine Kinase 79 CK-MB (Mass) 2.08 Troponin I < 0.0120 NT-Pro-B Natriuret Pep 548 Total Protein 8.5 H Albumin 3.4 L Globulin 5.1 H Albumin/Globulin Ratio 0.7 L Lipase 89 TSH 3rd Generation Venous Blood Potassium Urine Color Urine Clarity Urine pH Ur Specific Tiona Urine Protein Urine Glucose (UA) Urine Ketones Urine Blood Urine Nitrate Urine Bilirubin Urine Urobilinogen Ur Leukocyte Esterase Urine WBC (Auto) Urine RBC (Auto) Ur Squamous Epith Cells Urine Bacteria Influenza Typ A,B (EIA) 03/12/18 03/12/18 03/12/18 16:43 16:47 17:48 WBC RBC Hgb Hct MCV MCH MCHC RDW Plt Count MPV Neut % (Auto) Lymph % (Auto) Marathon % (Auto) Eos % (Auto) Baso % (Auto) Neut # (Auto) Lymph # (Auto) [place] # (Auto) Eos # (Auto) Baso # (Auto) Differential Comment PT INR pO2 VBG pH VBG pCO2 VBG HCO3 VBG Total CO2 VBG O2 Sat (Calc) VBG Base Excess VBG Potassium A-a O2 Difference Sodium Chloride Glucose Lactate FiO2 Crit Value Called To Crit Value Called By Crit Value Read Back Blood Gas Notified Time Potassium Carbon Dioxide Anion Gap BUN Creatinine Est GFR ( Amer) Est GFR (Non-Af Amer) POC Glucose (mg/dL) Random Glucose Calcium Magnesium Total Bilirubin AST ALT Alkaline Phosphatase Ammonia 68 H Total Creatine Kinase CK-MB (Mass) Troponin I NT-Pro-B Natriuret Pep Total Protein Albumin Globulin Albumin/Globulin Ratio Lipase TSH 3rd Generation Venous Blood Potassium Urine Color Yellow Urine Clarity Clear Urine pH 5.0 Ur Specific Tiona 1.010 Urine Protein Negative Urine Glucose (UA) Normal Urine Ketones Negative Urine Blood 1+ H Urine Nitrate Negative Urine Bilirubin Negative Urine Urobilinogen 2.0 H Ur Leukocyte Esterase Neg Urine WBC (Auto) 3 Urine RBC (Auto) 7 H Ur Squamous Epith Cells 2 Urine Bacteria Rare Influenza Typ A,B (EIA) Negative for flu a/b 03/12/18 03/12/18 21:01 21:10 WBC RBC Hgb Hct MCV MCH MCHC RDW Plt Count MPV Neut % (Auto) Lymph % (Auto) [place] % (Auto) Eos % (Auto) Baso % (Auto) Neut # (Auto) Lymph # (Auto) [place] # (Auto) Eos # (Auto) Baso # (Auto) Differential Comment PT INR pO2 29 L VBG pH 7.37 VBG pCO2 40 VBG HCO3 22.2 VBG Total CO2 24.3 VBG O2 Sat (Calc) 69.4 H VBG Base Excess -2.0 L VBG Potassium 3.6 A-a O2 Difference 71.0 Sodium 135.0 Chloride 103.0 Glucose 186 H Lactate 3.4 H FiO2 21.0 Crit Value Called To [facility] Crit Value Called By [employer] Tester Crit Value Read Back Y Blood Gas Notified Time 2114 Potassium Carbon Dioxide Anion Gap BUN Creatinine Est GFR ( Amer) Est GFR (Non-Af Amer) POC Glucose (mg/dL) Random Glucose Calcium Magnesium Total Bilirubin AST ALT Alkaline Phosphatase Ammonia Total Creatine Kinase CK-MB (Mass) Troponin I NT-Pro-B Natriuret Pep 497 Total Protein Albumin Globulin Albumin/Globulin Ratio Lipase TSH 3rd Generation 18.20 H Venous Blood Potassium 3.6 Urine Color Urine Clarity Urine pH Ur Specific Tiona Urine Protein Urine Glucose (UA) Urine Ketones Urine Blood Urine Nitrate Urine Bilirubin Urine Urobilinogen Ur Leukocyte Esterase Urine WBC (Auto) Urine RBC (Auto) Ur Squamous Epith Cells Urine Bacteria Influenza Typ A,B (EIA) Assessment & Plan - Date & Time Date: 03/13/18 (I have seen and examined the patient. I agree with the findings and plan of care as documented by Dr. Morin. Patient with hepatic encephalopathy. Denies alcohol history. Check hepatitis panel. Lactulose. Follow mental status. Ascites. Consult to IR. Pneumonia. Azithromycin and Rocephin. History of diabetes and hypertension. Accucheck and NISS. Continue home meds. Monitor for acute changes.) Time: 06:24 Attending/Attestation - Attestation I have personally seen and examined this patient.: Yes I have fully participated in the care of the patient.: Yes I have reviewed all pertinent clinical information: Yes
[2018-03-12] MEDS ORDERED: Magnesium Sulfate 1 gm in D5W 1 GM/100 ML BAG IVPB ONE (23:49)
[2018-03-13 02:22] VITALS: RESP 20
[2018-03-13] MEDS: Levothyroxine 125 MCG TAB PO SCH (06:24)
[2018-03-13 07:32] LABS: BASO # 0.1 K/uL (0.0-0.2); BASO % 1.2 % (0.0-2.0); EOS # 0.1 K/uL (0.0-0.7); EOS % 2.4 % (0.0-4.0); HEMOGLOBIN 13.4 g/dL (11.0-16.0); LYMPH # 1.4 K/uL (1.0-4.3); LYMPH % 31.2 % (20.0-40.0); MEAN CELL VOLUME 94.2 fL (81.0-99.0); MEAN CORPUSCULAR HEMOGLOBIN 32.3 pg (27.0-31.0); MEAN CORPUSCULAR HGB CONC 34.3 g/dL (33.0-37.0); MEAN PLATELET VOLUME 9.8 fL (7.2-11.7); MONO # 0.4 K/uL (0.0-0.8); MONO % 9.5 % (0.0-10.0); NEUT # 2.5 K/uL (1.8-7.0); NEUT % 55.7 % (50.0-75.0); RBC 4.15 Mil/uL (3.80-5.20); RED CELL DISTRIBUTION WIDTH 15.2 % (11.5-14.5); WHITE BLOOD COUNT 4.6 K/uL (4.8-10.8)
[2018-03-13 08:23] LABS: ALB/GLOB RATIO 0.6 (1.0-2.1); ALBUMIN 3.4 g/dL (3.5-5.0); ALT/SGPT 53 U/L (9-52); AST/SGOT 95 U/L (14-36); BLOOD UREA NITROGEN 19 mg/dL (7-17); CALCIUM 8.4 mg/dl (8.6-10.4); GFR NON-AFRICAN AMERICAN 60
[2018-03-13] MEDS: (Novolin R) Insulin Human Regular 100 units/ml vial SC SCH ×4 (08:30→22:00)
[2018-03-13 08:44] LABS: HEPATITIS B SURFACE AG Negative (NEGATIVE)
[2018-03-13 08:50] LABS: HEPATITIS A IGM NEGATIVE (NEGATIVE); HEPATITIS B CORE AB NEGATIVE (NEGATIVE)
[2018-03-13] MEDS ORDERED: Azithromycin 500 MG in Sodium Chloride 0.9% 250 ML IVPB SCH (10:00)
[2018-03-13] MEDS: Potassium Chloride 20 mEq ER Tab PO SCH ×2 (10:00→12:55)
[2018-03-13] MEDS: Metoprolol Succinate 100 mg XL Tab PO SCH (10:00)
[2018-03-13 10:53] LABS: HEPATITIS C ANTIBODY REACTIVE (NEGATIVE)
--- NOTE | 2018-03-13 11:26 | CP.PCM.PN ---
<Emerald Colón P - Last Filed: 03/13/18 19:47> Subjective - Date & Time of Evaluation Date of Evaluation: 03/13/18 Time of Evaluation: 07:05 - Subjective Subjective: PGY-[address] Stoddard Patient seen and examined at bedside. She is sitting in bed. She denies any acute complaints. She does not seem to think her abdomen or legs are swollen. When questioned, does not appear to have knowledge of her liver disease. Denies abdominal pain, nausea, vomiting, fever, chills, leg pain, chest pain, and shortness of breath. Objective - Vital Signs/Intake and Output Vital Signs (last 24 hours): Temp Pulse Resp BP Pulse Ox 97.3 F L 70 20 129/75 98 03/13/18 07:29 03/13/18 07:29 03/13/18 07:29 03/13/18 07:29 03/13/18 07:29 Intake and Output: 03/13/18 03/13/18 06:59 18:59 Intake Total 400 Output Total 1 Balance 399 - Medications Medications: Current Medications Amlodipine Besylate (Norvasc) 5 mg PO DAILY [facility] Last Admin: 03/13/18 10:00 Dose: 5 mg Furosemide (Lasix) 40 mg PO DAILY [facility] Last Admin: 03/13/18 10:00 Dose: Not Given Heparin Sodium (Porcine) (Heparin) 5,000 units SC Q8 [facility] Last Admin: 03/13/18 06:24 Dose: 5,000 units Hydrochlorothiazide (Hydrodiuril) 25 mg PO DAILY [facility] Azithromycin 500 mg/ Sodium (Chloride) 250 mls @ 250 mls/hr IVPB DAILY [facility]; Protocol Last Admin: 03/13/18 09:00 Dose: 250 mls/hr Ceftriaxone Sodium 1 gm/ (Sodium Chloride) 100 mls @ 100 mls/hr IVPB DAILY [facility]; Protocol Influenza Virus Vaccine (Flucelvax Quad 0013-1672 Syr) 60 mcg IM .ONCE ONE Stop: 03/15/18 10:01 Insulin Human Regular (Novolin R) 0 unit SC ACHS [facility]; Protocol Last Admin: 03/13/18 08:30 Dose: 3 units Lactulose (Enulose) 20 gm PO QID [facility] Last Admin: 03/13/18 10:00 Dose: Not Given Levothyroxine Sodium (Synthroid) 125 mcg PO DAILY@0630 [facility] Last Admin: 03/13/18 06:24 Dose: 125 mcg Lorazepam (Ativan) 0.5 mg PO TID PRN PRN Reason: Symptoms of alcohol withdrawl Losartan Potassium (Cozaar) 100 mg PO DAILY [facility] Last Admin: 03/13/18 10:00 Dose: 100 mg Meclizine HCl (Antivert) 25 mg PO DAILY PRN PRN Reason: Dizziness Metoprolol Succinate (Toprol Xl) 200 mg PO DAILY [facility] Last Admin: 03/13/18 10:00 Dose: 200 mg Potassium Chloride (K-Dur 20 Meq Er Tab) 20 meq PO Q4H [facility] Stop: 03/13/18 13:46 Last Admin: 03/13/18 10:00 Dose: 20 meq Simethicone (Mylicon Chew Tab) 80 mg PO QID PRN PRN Reason: GI distress - Labs Labs: 03/13/18 07:19 03/13/18 07:19 PT 12.8 SECONDS (9.7-12.2) H 03/12/18 16:43 INR 1.2 03/12/18 16:43 - Constitutional Appears: No Acute Distress - Head Exam Head Exam: ATRAUMATIC, NORMOCEPHALIC - Eye Exam Eye Exam: EOMI, PERRL - ENT Exam ENT Exam: Mucous Membranes Moist - Neck Exam Neck Exam: Full ROM - Respiratory Exam Respiratory Exam: Clear to Ausculation Bilateral, NORMAL BREATHING PATTERN. absent: Rales, Rhonchi, Wheezes - Cardiovascular Exam Cardiovascular Exam: REGULAR RHYTHM, +S1, +S2 - GI/Abdominal Exam GI & Abdominal Exam: Distended, Soft, Normal Bowel Sounds. absent: Guarding, Rigid, Tenderness Additional comments: + fluid wave - Extremities Exam Extremities Exam: Full ROM. absent: Calf Tenderness, Normal Inspection Additional comments: 2+ bilateral LE pitting edema. - Neurological Exam Neurological Exam: Alert, Awake, CN II-XII Intact, Oriented x3 Neuro motor strength exam: Left Upper Extremity: 5, Right Upper Extremity: 5, Left Lower Extremity: 5, Right Lower Extremity: 5 - Psychiatric Exam Psychiatric exam: Normal Affect, Normal Mood - Skin Skin Exam: Dry, Normal Color, Warm Assessment and Plan - Assessment and Plan (Free Text) Plan: Elevated Ammonia Altered Mental Status-improving - Head CT 03/12: Nonspecific white matter changes and chronic appearing lacunar type infarct. See full report. - Abd US - Nodular hepatic contour. Echogenic liver may be sen in the setting of hepatic parenchymal dz or fatty infiltration. Correlate clinically for cirrhosis. Cholecystectomy. Splenomegaly. Moderate abdominal ascites. - CT abd/pelvis 01/2018: Hepatic cirrhosis. Splenomegaly. Ascites. Cholecystectomy. Dilated common bile duct without associated intrahepatic biliary dilatation. Uncertain significance. Correlate with laboratory evaluation for any evidence of biliary obstruction. Mural thickening of the proximal duodenum, nonspecific. Mesenteric edema, nonspecific. Minor findings as above. - Lactulose 20 g QID - dose confirmed with pharmacy - Lasix 40mg IV40 - ammonia downtrending 68-> 22 on 03/13/18 - INR 1.2->1.3, follow daily - GI, Dr. Cho, consulted. Help appreciated - IR consult paracentesis Hepatitis C antibody Reactive - Hepatitis C RNA Qual- F/u - Hep AB with reflex- F/u Infiltrate on CXR - CXR 03/12: Moderate pulmonary congestion and suspected infiltrate within upper lobes - CT chest 03/13: No focal consolidation seen (see full report) - Rocephin/Azithromycin discontinued DM - ISS - Accuchecks ACHS HTN - Losartan 100 daily - HCTZ 25 daily - Norvasc 5 daily - Terazosin 1 mg daily Hypothyroid Levothyroxine 125mcg daily Pedal Edema - Home lasix 40 mg po daily restarted - denies hx of CHF, unknown why edema PPx - Contraindication to VTE 2/2 thrombocytopenia. Case discussed with Dr. Arlyn Colón, PGY-1. <Phuong Stoddard V - Last Filed: 03/14/18 08:42> Objective - Vital Signs/Intake and Output Vital Signs (last 24 hours): Temp Pulse Resp BP Pulse Ox 97.9 F 70 20 131/74 95 03/14/18 00:00 03/14/18 00:00 03/14/18 00:00 03/14/18 05:46 03/14/18 00:00 Intake and Output: 03/14/18 03/14/18 06:59 18:59 Intake Total 840 Balance 840 - Medications Medications: Current Medications Amlodipine Besylate (Norvasc) 5 mg PO DAILY [facility] Last Admin: 03/13/18 10:00 Dose: 5 mg Furosemide (Lasix) 40 mg IVP Q12H [facility] Last Admin: 03/14/18 05:46 Dose: 40 mg Hydrochlorothiazide (Hydrodiuril) 25 mg PO DAILY [facility] Last Admin: 03/13/18 10:00 Dose: 25 mg Influenza Virus Vaccine (Flucelvax Quad [id number] Syr) 60 mcg IM .ONCE ONE Stop: 03/15/18 10:01 Insulin Human Regular (Novolin R) 0 unit SC [facility]; Protocol Last Admin: 03/14/18 08:20 Dose: 3 units Lactulose (Enulose) 20 gm PO QID [facility] Last Admin: 03/13/18 21:29 Dose: 20 gm Levothyroxine Sodium (Synthroid) 125 mcg PO DAILY@0630 [facility] Last Admin: 03/14/18 05:47 Dose: 125 mcg Losartan Potassium (Cozaar) 100 mg PO DAILY [facility] Last Admin: 03/13/18 10:00 Dose: 100 mg Meclizine HCl (Antivert) 25 mg PO DAILY PRN PRN Reason: Dizziness Metoprolol Succinate (Toprol Xl) 200 mg PO DAILY [facility] Last Admin: 03/13/18 10:00 Dose: 200 mg Pneumococcal Polyvalent Vaccine (Pneumovax 23 Vaccine) 0.5 ml IM .ONCE ONE Stop: 03/15/18 10:01 Simethicone (Mylicon Chew Tab) 80 mg PO QID PRN PRN Reason: GI distress Last Admin: 03/13/18 18:02 Dose: 80 mg - Labs Labs: 03/13/18 07:19 03/13/18 07:19 PT 14.1 SECONDS (9.7-12.2) H 03/13/18 17:04 INR 1.3 03/13/18 17:04 Attending/Attestation - Attestation I have personally seen and examined this patient.: Yes I have fully participated in the care of the patient.: Yes I have reviewed all pertinent clinical information, including history, physical exam and plan: Yes Notes (Text): This is late computer entry for 03/13/18. Patient seen, examined and case discussed with day-time resident. Patient seen this afternoon approximately 4PM. Patient is of [place] background, and denies history of any liver disease. She is awake, alert oriented X3, she is able to say the date and the President. She denies any history of IV drug use n or any history of hepatitis. Patient has refused Lactulose this morning with the nurse. When I ask her who takes care of her, she reports she takes care of herself. She reports her belly is bigger but she thought she was getting fat, and I ask her about the swelling in her legs, she reports they have been getting swollen over the past two days. We will consult GI. We will get an echo to characterize the heart to exclude or rule out congestive heart failure; venous dopplers r/o dvt. Reviewed chest xray with resident no apparent infiltrate per my view, will order CT Chest to exclude consolidation. Further clarification noted in the assessment and plan below. Assessment/Plan 1. Hepatic Encephalopathy Hepatic Cirrhosis with Ascites Assessment/Plan * Head CT 03/12: Nonspecific white matter changes and chronic appearing lacunar type infarct. See full report. * Abd US - Nodular hepatic contour. Echogenic liver may be sen in the setting of hepatic parenchymal dz or fatty infiltration. Correlate clinically for cirrhosis. Cholecystectomy. Splenomegaly. Moderate abdominal ascites. * CT abd/pelvis 01/2018: Hepatic cirrhosis. Splenomegaly. Ascites. Cholecystectomy. Dilated common bile duct without associated intrahepatic biliary dilatation. Uncertain significance. Correlate with laboratory evaluation for any evidence of biliary obstruction. Mural thickening of the proximal duodenum, nonspecific. Mesenteric edema, nonspecific. Minor findings as above. (from prior ED visit noting hepatic cirrhosis) * Lactulose 20 g QID - dose confirmed with pharmacy * hold for diarrhea, patient had refused her dose with the nurse in the morning * Patient takes diuretic as outpatient-->start Lasix 40mg IV BID * Ammonia downtrending 68-> 22 on 03/13/18 * GI, Dr. Cho, consulted. Help appreciated * IR consult for paracentesis and order for fluid studies 2. Hepatitis C antibody Reactive Assessment/Plan * Hepatitis C RNA Qual- F/u * Hep AB with reflex- F/u * Abd US - Nodular hepatic contour. Echogenic liver may be sen in the setting of hepatic parenchymal dz or fatty infiltration. Correlate clinically for cirrhosis. Cholecystectomy. Splenomegaly. Moderate abdominal ascites. 3. Infiltrate on CXR Assessment/Plan * CXR 03/12: Moderate pulmonary congestion and suspected infiltrate within upper lobes * CT chest 03/13: No focal consolidation seen (see full report). Mild pulmonary venous congestion. 2 mm subpleural nodule. nodular hepatic contour, abdominal ascites. cardiomegaly. * I have discontinue IV abx since patient does not clinically present with pneumonia and better characterization by CT chest shows no infiltrate 4. Diabetes Mellitus Assessment/Plan * ISS * Accuchecks ACHS * Hypoglycemic protocol * check a1c, and lipid panel * hold metformin 5. Essential Hypertension Assessment/Plan * Losartan 100mg PO daily * HCTZ 25mg PO daily * Norvasc 5mg PO daily * Terazosin 1 mg daily 6. History of Hypothyroid * Levothyroxine 125mcg daily * Elevated TSH, normal Free T4 7. Pedal Edema * Home lasix 40 mg po daily restarted - denies hx of CHF, unknown why edema; changed to IV Lasix * will need to rule out dvt with venous doppler * echo exclude congestive heart failure, patient has cardiac risk factors for heart failure 8. PPx * Contraindication to VTE 2/2 thrombocytopenia * Contraindication to scds secondary to lower extremity edema
--- NOTE | 2018-03-13 13:00 | CP.PCM.PCO ---
Physician Communication Note - Physician Communication Note Physician Communication Note: Please see above
--- NOTE | 2018-03-13 13:17 | US ---
HISTORY: elevated lfts/ascites COMPARISON: CT abdomen and pelvis without contrast performed 01/11/18 TECHNIQUE: Sonographic evaluation of the abdomen. FINDINGS: LIVER: Measures 16.4 cm in sagittal dimension. Nodular hepatic contour. Echogenic liver may be seen in setting of hepatic parenchymal disease or fatty infiltration. No focal hepatic mass identified. The main portal vein appears patent with normal directional flow. No intrahepatic bile duct dilatation. GALLBLADDER: Cholecystectomy. COMMON BILE DUCT: Measures 9 mm. PANCREAS: Not well visualized. RIGHT KIDNEY: Measures 10.4 x 4.0 x 5.1 cm. No obstructing calculus or hydronephrosis identified. LEFT KIDNEY: Measures 10.9 x 4.5 x 4.8 cm. No obstructing calculus or hydronephrosis identified. SPLEEN: Measures approximately 13.9 cm. AORTA: Limited views appear unremarkable. IVC: Limited views appear unremarkable. OTHER FINDINGS: Moderate abdominal ascites. IMPRESSION: Nodular hepatic contour. Echogenic liver may be seen in setting of hepatic parenchymal disease or fatty infiltration. Correlate clinically for cirrhosis. Cholecystectomy. Splenomegaly. Moderate abdominal ascites.
--- NOTE | 2018-03-13 15:44 | CT ---
Date of service: 03/13/2018 CT chest without IV contrast Indication: questionable upper lobe infiltrate Technique: Contiguous axial images were obtained through the chest without intravenous contrast enhancement. Sagittal and coronal reconstructions were generated and reviewed. This CT exam was performed using 1 or more of the following dose reduction techniques: Automated exposure control, adjustment of the MAA and/or kV according to patient size, and/or use of iterative reconstruction technique. Radiation dose (DLP): 532.34 MGy-cm. Comparison: Chest x-ray performed 03/12/18 Findings: Visualized portions of the inferior thyroid gland appear unremarkable. Aberrant right subclavian artery, anatomic variant. Atherosclerotic calcifications of the aorta and branches. Cardiomegaly. Coronary artery calcifications. Mitral annulus calcification. Pulmonary venous congestion. No focal consolidation. No pleural effusion. No pneumothorax. 2 mm subpleural nodule along the right upper lobe (series 3, image 28). Limited visualization of the noncontrast upper abdomen: Nodular hepatic contour. Cholecystectomy clips. Abdominal ascites. Degenerative changes of the spine. Mild curvature of this thoracic spine convex to the right. Impression: Mild pulmonary venous congestion. 2 mm subpleural nodule, right upper lobe. If the patient is high risk, an optional CT in 12 months is recommended. Nodular hepatic contour may be seen in setting of cirrhosis. Abdominal ascites. Cardiomegaly. Additional incidental findings as above.
[2018-03-13 17:15] LABS: INR 1.3; PROTHROMBIN TIME 14.1 SECONDS (9.7-12.2)
[2018-03-13] MEDS: Simethicone 80 mg Chewtab PO PRN (18:02)
[2018-03-14] MEDS: Levothyroxine 125 MCG TAB PO SCH (05:47)
[2018-03-14] MEDS: (Novolin R) Insulin Human Regular 100 units/ml vial SC SCH ×4 (08:20→22:00)
--- NOTE | 2018-03-14 08:27 | CP.PCM.CON ---
History of Present Illness - History of Present Illness History of Present Illness: This is an 83 year old woman with hepatitis C Patient presented to the ER 03/12/2018 with weakness, nausea, neck pain and confusion. Finger stick on the day prior to admission was 500. She denies having vomiting, loss of appetite, loss of weight, difficulty swallowing, diarrhea, rectal bleeding. She does have heartburn and constipation. She takes medication for constipation, the name of which she does not remember. On evaluation in the ER, VS were stable. The PT was near normal at 14.1. The liver enzymes were elevated: AST 95, ALT 53, ALKP 152. The ammonia level was also elevated at 68. Hepatitis C JUANCARLOS was positive, CT scan of the chest showed ascites and nodular liver contour. Sonogram of the abdomen showed nodul ar hepatic contour, increased echogenicity of the liver, S/P cholecystectomy, CBD 9 mm, splenomegaly, moderate abdominal ascites. She denies recent alcohol use, although she used to drink in the past. Review of Systems - Review of Systems All systems: reviewed and no additional remarkable complaints except - Constitutional Constitutional: Headache, Malaise, Weakness - EENT Eyes: absent: Blurred Vision - Cardiovascular Cardiovascular: Leg Edema. absent: Chest Pain, Dyspnea - Respiratory Respiratory: absent: Cough, Dyspnea - Gastrointestinal Gastrointestinal: Bloating, Constipation, Heartburn, Nausea. absent: Abdominal Pain, Diarrhea, Dysphagia, Hematochezia, Vomiting - Musculoskeletal Musculoskeletal: Neck Pain - Neurological Neurological: Confusion. absent: Numbness Past Patient History - Infectious Disease Hx of Infectious Diseases: None - Past Medical History & Family History Past Medical History?: Yes - Past Social History Smoking Status: Never Smoked - CARDIAC Hx Hypertension: Yes - NEUROLOGICAL Hx Vertigo: Yes (does not take meclizine prescribed) - ENDOCRINE/METABOLIC Hx Hypothyroidism: Yes - MUSCULOSKELETAL/RHEUMATOLOGICAL Hx Falls: No - GASTROINTESTINAL Hx Gastroesophageal Reflux: Yes - PSYCHIATRIC Hx Substance Use: No - SURGICAL HISTORY Hx Surgeries: No - ANESTHESIA Hx Anesthesia: No Meds Allergies/Adverse Reactions: Allergies Allergy/AdvReac Type Severity Reaction Status Date / Time No Known Allergies Allergy Verified 01/11/18 14:34 - Medications Medications: Current Medications Amlodipine Besylate (Norvasc) 5 mg PO DAILY [facility] Last Admin: 03/13/18 10:00 Dose: 5 mg Furosemide (Lasix) 40 mg IVP Q12H [facility] Last Admin: 03/14/18 05:46 Dose: 40 mg Hydrochlorothiazide (Hydrodiuril) 25 mg PO DAILY [facility] Last Admin: 03/13/18 10:00 Dose: 25 mg Influenza Virus Vaccine (Flucelvax Quad [id number] Syr) 60 mcg IM .ONCE ONE Stop: 03/15/18 10:01 Insulin Human Regular (Novolin R) 0 unit SC ACHS [facility]; Protocol Last Admin: 03/13/18 22:00 Dose: Not Given Lactulose (Enulose) 20 gm PO QID [facility] Last Admin: 03/13/18 21:29 Dose: 20 gm Levothyroxine Sodium (Synthroid) 125 mcg PO DAILY@0630 [facility] Last Admin: 03/14/18 05:47 Dose: 125 mcg Losartan Potassium (Cozaar) 100 mg PO DAILY [facility] Last Admin: 03/13/18 10:00 Dose: 100 mg Meclizine HCl (Antivert) 25 mg PO DAILY PRN PRN Reason: Dizziness Metoprolol Succinate (Toprol Xl) 200 mg PO DAILY [facility] Last Admin: 03/13/18 10:00 Dose: 200 mg Pneumococcal Polyvalent Vaccine (Pneumovax 23 Vaccine) 0.5 ml IM .ONCE ONE Stop: 03/15/18 10:01 Simethicone (Mylicon Chew Tab) 80 mg PO QID PRN PRN Reason: GI distress Last Admin: 03/13/18 18:02 Dose: 80 mg Physical Exam - Constitutional Appears: No Acute Distress - Head Exam Head Exam: ATRAUMATIC, NORMOCEPHALIC - Eye Exam Eye Exam: EOMI, PERRL - Neck Exam Neck exam: Negative for: Lymphadenopathy, Thyromegaly - Respiratory Exam Respiratory Exam: NORMAL BREATHING PATTERN. absent: Rales, Rhonchi, Wheezes - Cardiovascular Exam Cardiovascular Exam: REGULAR RHYTHM, +S1, +S2. absent: Gallop, Rubs, Systolic Murmur - GI/Abdominal Exam GI & Abdominal Exam: Distended, Normal Bowel Sounds, Soft. absent: Mass, Organomegaly, Tenderness - Rectal Exam Rectal Exam: Deferred - Extremities Exam Extremities exam: Positive for: pedal edema. Negative for: calf tenderness Results - Vital Signs Recent Vital Signs: Last Vital Signs Temp 97.9 F 03/14/18 00:00 Pulse 70 03/14/18 00:00 Resp 20 03/14/18 00:00 BP 131/74 03/14/18 05:46 Pulse Ox 95 03/14/18 00:00 - Labs Result Diagrams: 03/13/18 07:19 03/13/18 07:19 Labs: Laboratory Results - last 24 hr 03/13/18 03/13/18 03/13/18 07:19 07:19 07:19 PT INR Sodium 134 Potassium 3.4 L Chloride 101 Carbon Dioxide 23 Anion Gap 13 BUN 19 H Creatinine 0.9 Est GFR ( Amer) > 60 Est GFR (Non-Af Amer) 60 POC Glucose (mg/dL) Random Glucose 193 H Calcium 8.4 L Phosphorus 3.9 Magnesium 1.6 Total Bilirubin 1.9 H AST 95 H ALT 53 H Alkaline Phosphatase 152 H Ammonia Total Protein 8.8 H Albumin 3.4 L Globulin 5.4 H Albumin/Globulin Ratio 0.6 L Free T4 1.54 Hepatitis A IgM Ab Negative Hep Bs Antigen Negative Hep B Core IgM Ab Negative Hepatitis C Antibody Reactive 03/13/18 03/13/18 03/13/18 11:51 16:54 17:04 PT 14.1 H INR 1.3 Sodium Potassium Chloride Carbon Dioxide Anion Gap BUN Creatinine Est GFR ( Amer) Est GFR (Non-Af Amer) POC Glucose (mg/dL) 291 H 273 H Random Glucose Calcium Phosphorus Magnesium Total Bilirubin AST ALT Alkaline Phosphatase Ammonia Total Protein Albumin Globulin Albumin/Globulin Ratio Free T4 Hepatitis A IgM Ab Hep Bs Antigen Hep B Core IgM Ab Hepatitis C Antibody 03/13/18 03/13/18 03/14/18 17:04 21:44 07:28 PT INR Sodium Potassium Chloride Carbon Dioxide Anion Gap BUN Creatinine Est GFR ( Amer) Est GFR (Non-Af Amer) POC Glucose (mg/dL) 288 H 224 H Random Glucose Calcium Phosphorus Magnesium Total Bilirubin AST ALT Alkaline Phosphatase Ammonia 22 D Total Protein Albumin Globulin Albumin/Globulin Ratio Free T4 Hepatitis A IgM Ab Hep Bs Antigen Hep B Core IgM Ab Hepatitis C Antibody Assessment & Plan (1) Hepatitis C Assessment and Plan: Patient has positive hepatitis C JUANCARLOS, cirrhosis by CT criteria, splenomegaly, thrombocytopenia, and hepatic encephalopathy. Will order viral RNA count. Patient should be evaluated for anti-viral therapy. This work-up may be accomplished as an outpatient. Recommend sodium restriction, aldactone/lasix, lactulose. Check AFP and urine sodium. Status: Acute
--- NOTE | 2018-03-14 08:58 | CP.PCM.PN ---
Subjective - Date & Time of Evaluation Date of Evaluation: 03/14/18 Time of Evaluation: 08:57 - Subjective Subjective: PGY-[address] Stoddard Patient seen and examined at bedside. She is sitting in bed. She denies any acute complaints. Denies abdominal pain, nausea, vomiting, fever, chills, leg pain, chest pain, and shortness of breath. Objective - Vital Signs/Intake and Output Vital Signs (last 24 hours): Temp Pulse Resp BP Pulse Ox 98.0 F 67 20 129/54 L 95 03/14/18 08:35 03/14/18 08:35 03/14/18 08:35 03/14/18 08:35 03/14/18 08:35 Intake and Output: 03/14/18 03/14/18 06:59 18:59 Intake Total 840 Balance 840 - Medications Medications: Current Medications Amlodipine Besylate (Norvasc) 5 mg PO DAILY [facility] Last Admin: 03/13/18 10:00 Dose: 5 mg Furosemide (Lasix) 40 mg PO DAILY [facility] Influenza Virus Vaccine (Flucelvax Quad [id number] Syr) 60 mcg IM .ONCE ONE Stop: 03/15/18 10:01 Insulin Human Regular (Novolin R) 0 unit SC [facility]; Protocol Last Admin: 03/14/18 08:20 Dose: 3 units Lactulose (Enulose) 20 gm PO QID [facility] Last Admin: 03/13/18 21:29 Dose: 20 gm Levothyroxine Sodium (Synthroid) 125 mcg PO DAILY@0630 [facility] Last Admin: 03/14/18 05:47 Dose: 125 mcg Losartan Potassium (Cozaar) 100 mg PO DAILY [facility] Last Admin: 03/13/18 10:00 Dose: 100 mg Meclizine HCl (Antivert) 25 mg PO DAILY PRN PRN Reason: Dizziness Metoprolol Succinate (Toprol Xl) 200 mg PO DAILY [facility] Last Admin: 03/13/18 10:00 Dose: 200 mg Pneumococcal Polyvalent Vaccine (Pneumovax 23 Vaccine) 0.5 ml IM .ONCE ONE Stop: 03/15/18 10:01 Simethicone (Mylicon Chew Tab) 80 mg PO QID PRN PRN Reason: GI distress Last Admin: 03/13/18 18:02 Dose: 80 mg Spironolactone (Aldactone) 50 mg PO DAILY [facility] - Labs Labs: 03/13/18 07:19 03/13/18 07:19 PT 14.1 SECONDS (9.7-12.2) H 03/13/18 17:04 INR 1.3 03/13/18 17:04 - Additional Findings Additional findings: - Constitutional Appears: No Acute Distress - Head Exam Head Exam: ATRAUMATIC, NORMOCEPHALIC - Eye Exam Eye Exam: EOMI, PERRL - ENT Exam ENT Exam: Mucous Membranes Moist - Neck Exam Neck Exam: Full ROM - Respiratory Exam Respiratory Exam: Clear to Ausculation Bilateral, NORMAL BREATHING PATTERN. absent: Rales, Rhonchi, Wheezes - Cardiovascular Exam Cardiovascular Exam: REGULAR RHYTHM, +S1, +S2 - GI/Abdominal Exam GI & Abdominal Exam: Distended, Soft, Normal Bowel Sounds. absent: Guarding, Rigid, Tenderness Additional comments: + fluid wave - Extremities Exam Extremities Exam: Full ROM. absent: Calf Tenderness, Normal Inspection Additional comments: 2+ bilateral LE pitting edema. Assessment and Plan - Assessment and Plan (Free Text) Plan: Patient is a 83 year old female PMHx HTN, DM who presents due to confusion/altered mental status. Elevated Ammonia Altered Mental Status-improving - Head CT 03/12: Nonspecific white matter changes and chronic appearing lacunar type infarct. See full report. - Abd US - Nodular hepatic contour. Echogenic liver may be sen in the setting of hepatic parenchymal dz or fatty infiltration. Correlate clinically for cirrhosis. Cholecystectomy. Splenomegaly. Moderate abdominal ascites. - CT abd/pelvis 01/2018: Hepatic cirrhosis. Splenomegaly. Ascites. Cholecystectomy. Dilated common bile duct without associated intrahepatic biliary dilatation. Uncertain significance. Correlate with laboratory evaluation for any evidence of biliary obstruction. Mural thickening of the proximal duodenum, nonspecific. Mesenteric edema, nonspecific. Minor findings as above. - Lactulose 20 g QID - dose confirmed with pharmacy - Lasix 40mg IV40 - ammonia downtrending 68-> 22 on 03/13/18 - INR 1.2->1.3, follow daily - GI, Dr. Cho, consulted. Help appreciated - IR consult paracentesis Hepatitis C antibody Reactive - Hepatitis C RNA Qual- F/u - Hep AB with reflex- F/u Infiltrate on CXR - CXR 03/12: Moderate pulmonary congestion and suspected infiltrate within upper lobes - CT chest 03/13: No focal consolidation seen (see full report) - Rocephin/Azithromycin discontinued DM - ISS - Accuchecks ACHS HTN - Losartan 100 daily - HCTZ 25 daily - Norvasc 5 daily - Terazosin 1 mg daily Hypothyroid Levothyroxine 125mcg daily Pedal Edema - Home lasix 40 mg po daily restarted - denies hx of CHF, unknown why edema PPx - Contraindication to VTE 2/2 thrombocytopenia. Case discussed with Dr. Arlyn Colón, PGY-1.
[2018-03-14 09:40] LABS: BASO % 0.7 % (0.0-2.0); EOS # 0.1 K/uL (0.0-0.7); EOS % 1.9 % (0.0-4.0); HEMOGLOBIN 12.1 g/dL (11.0-16.0); LYMPH # 1.5 K/uL (1.0-4.3); LYMPH % 29.1 % (20.0-40.0); MEAN CELL VOLUME 94.9 fL (81.0-99.0); MEAN CORPUSCULAR HEMOGLOBIN 32.4 pg (27.0-31.0); MEAN CORPUSCULAR HGB CONC 34.2 g/dL (33.0-37.0); MEAN PLATELET VOLUME 10.1 fL (7.2-11.7); MONO # 0.6 K/uL (0.0-0.8); MONO % 12.2 % (0.0-10.0); NEUT # 2.9 K/uL (1.8-7.0); NEUT % 56.1 % (50.0-75.0); NRBC % 0.2 % (0.0-2.0); RBC 3.72 Mil/uL (3.80-5.20); RED CELL DISTRIBUTION WIDTH 15.1 % (11.5-14.5); WHITE BLOOD COUNT 5.1 K/uL (4.8-10.8)
[2018-03-14] MEDS: Metoprolol Succinate 100 mg XL Tab PO SCH (09:44)
[2018-03-14 09:54] LABS: INR 1.3; PROTHROMBIN TIME 13.8 SECONDS (9.7-12.2)
[2018-03-14 10:26] LABS: ALB/GLOB RATIO 0.7 (1.0-2.1); ALBUMIN 3.1 g/dL (3.5-5.0); CALCIUM 8.3 mg/dl (8.6-10.4)
--- NOTE | 2018-03-14 12:32 | CP.PCM.PN ---
Subjective - Date & Time of Evaluation Date of Evaluation: 03/14/18 Time of Evaluation: 12:20 - Subjective Subjective: Medical attending note Patient seen at bedside about to eat lunch. Patient sitting upright. Patient denies headache denies chest pain denies shortness of breath denies abdominal distention reports swelling over the legs are mildly improved. She was visited by the GI doctor this morning. Objective - Vital Signs/Intake and Output Vital Signs (last 24 hours): Temp Pulse Resp BP Pulse Ox 98.0 F 70 20 134/68 95 03/14/18 08:35 03/14/18 09:43 03/14/18 08:35 03/14/18 09:48 03/14/18 08:35 Intake and Output: 03/14/18 03/14/18 06:59 18:59 Intake Total 840 Balance 840 - Medications Medications: Current Medications Amlodipine Besylate (Norvasc) 5 mg PO DAILY [facility] Last Admin: 03/14/18 09:45 Dose: 5 mg Furosemide (Lasix) 40 mg PO DAILY [facility] Last Admin: 03/14/18 09:48 Dose: 40 mg Magnesium Sulfate/Dextrose (Magnesium Sulfate 1 Gm/100 Ml D5w) 1 gm in 100 mls @ 300 mls/hr IVPB Q30M [facility] Stop: 03/14/18 13:19 Influenza Virus Vaccine (Flucelvax Quad [id number] Syr) 60 mcg IM .ONCE ONE Stop: 03/15/18 10:01 Insulin Human Regular (Novolin R) 0 unit SC ACHS [facility]; Protocol Last Admin: 03/14/18 08:20 Dose: 3 units Lactulose (Enulose) 20 gm PO QID [facility] Last Admin: 03/14/18 09:50 Dose: Not Given Levothyroxine Sodium (Synthroid) 125 mcg PO DAILY@0630 [facility] Last Admin: 03/14/18 05:47 Dose: 125 mcg Losartan Potassium (Cozaar) 100 mg PO DAILY [facility] Last Admin: 03/14/18 09:44 Dose: 100 mg Meclizine HCl (Antivert) 25 mg PO DAILY PRN PRN Reason: Dizziness Metoprolol Succinate (Toprol Xl) 200 mg PO DAILY [facility] Last Admin: 03/14/18 09:44 Dose: 200 mg Pneumococcal Polyvalent Vaccine (Pneumovax 23 Vaccine) 0.5 ml IM .ONCE ONE Stop: 03/15/18 10:01 Simethicone (Mylicon Chew Tab) 80 mg PO QID PRN PRN Reason: GI distress Last Admin: 03/13/18 18:02 Dose: 80 mg Spironolactone (Aldactone) 50 mg PO DAILY [facility] Last Admin: 03/14/18 09:48 Dose: 50 mg - Labs Labs: 03/14/18 09:31 03/14/18 09:31 PT 13.8 SECONDS (9.7-12.2) H 03/14/18 09:31 INR 1.3 03/14/18 09:31 - Constitutional Appears: Non-toxic, No Acute Distress - Head Exam Head Exam: NORMAL INSPECTION - Eye Exam Eye Exam: EOMI - ENT Exam ENT Exam: Mucous Membranes Moist - Respiratory Exam Respiratory Exam: Clear to Ausculation Bilateral, NORMAL BREATHING PATTERN. a bsent: Rales, Rhonchi, Wheezes - Cardiovascular Exam Cardiovascular Exam: REGULAR RHYTHM, +S1, +S2 - GI/Abdominal Exam GI & Abdominal Exam: Distended, Soft, Normal Bowel Sounds. absent: Firm, Guarding, Rigid, Tenderness, Rebound Additional comments: + fluid wave negative ramirez's sign - Extremities Exam Additional comments: b/l leg swelling 2+ edema (mildly improved) mild dependent rubor - Neurological Exam Neurological Exam: Alert, Awake, Oriented x3 - Skin Skin Exam: Dry, Normal Color, Warm Assessment and Plan (1) Hepatic encephalopathy Status: Acute (2) Hepatitis C antibody positive in blood Status: Acute (3) Hepatic cirrhosis Status: Acute (4) Leg edema Status: Acute (5) Transaminitis Status: Acute Attending/Attestation - Attestation I have personally seen and examined this patient.: Yes I have fully participated in the care of the patient.: Yes I have reviewed all pertinent clinical information, including history, physical exam and plan: Yes Notes (Text): Assessment/Plan 1. Hepatic Encephalopathy Hepatic Cirrhosis with Ascites Assessment/Plan * Head CT 03/12: Nonspecific white matter changes and chronic appearing lacunar type infarct. See full report. * Abd US - Nodular hepatic contour. Echogenic liver may be sen in the setting of hepatic parenchymal dz or fatty infiltration. Correlate clinically for cirrhosis. Cholecystectomy. Splenomegaly. Moderate abdominal ascites. * CT abd/pelvis 01/2018: Hepatic cirrhosis. Splenomegaly. Ascites. Cholecystectomy. Dilated common bile duct without associated intrahepatic biliary dilatation. Uncertain significance. Correlate with laboratory evaluation for any evidence of biliary obstruction. Mural thickening of the proximal duodenum, nonspecific. Mesenteric edema, nonspecific. Minor findings as above. (from prior ED visit noting hepatic cirrhosis) * Lactulose 20 g QID - dose confirmed with pharmacy * hold for diarrhea, patient had refused her dose with the nurse in the morning * GI has evaluated patient * Lasix 40mg PO daily * Aldactone 50mg PO daily * Ammonia downtrending 68-> 22 on 03/13/18 * GI, Dr. Cho, consulted. Help appreciated * IR consult for paracentesis and order for fluid studies 2. Hepatitis C antibody Reactive Assessment/Plan * Hepatitis C RNA Qual- F/u * Hep AB with reflex- F/u * Abd US - Nodular hepatic contour. Echogenic liver may be sen in the setting of hepatic parenchymal dz or fatty infiltration. Correlate clinically for cirrhosis. Cholecystectomy. Splenomegaly. Moderate abdominal ascites. 3. Infiltrate on CXR Assessment/Plan * CXR 03/12: Moderate pulmonary congestion and suspected infiltrate within upper lobes * CT chest 03/13: No focal consolidation seen (see full report). Mild pulmonary venous congestion. 2 mm subpleural nodule. nodular hepatic contour, abdominal ascites. cardiomegaly. * I have discontinue IV abx since patient does not clinically present with pneumonia and better characterization by CT chest shows no infiltrate on 03/13/18 4. Diabetes Mellitus Assessment/Plan * ISS * Accuchecks ACHS * Hypoglycemic protocol * check a1c, and lipid panel * hold metformin 5. Essential Hypertension Assessment/Plan * Losartan 100mg PO daily * HCTZ 25mg PO daily * Norvasc 5mg PO daily * Terazosin 1 mg daily 6. History of Hypothyroid * Levothyroxine 125mcg daily * Elevated TSH, normal Free T4 7. Pedal Edema * Home lasix 40 mg po daily restarted - denies hx of CHF, unknown why edema; changed to IV Lasix * will need to rule out dvt with venous doppler * echo exclude congestive heart failure, patient has cardiac risk factors for heart failure 8. PPx * Contraindication to VTE 2/2 thrombocytopenia * Contraindication to scds secondary to lower extremity edema 03/14/18: I did indicate to her that she does have liver problems and possibly hepatitis C patient reports that she does not want to think of these problems I did advise her again that these problems are the reason why she is at the hospital and likely while she will need follow-up with a processes chemical design engineer and possible treatment for hepatitis C. Patient is able to say the correct date and time as well as president. She is currently not encephalopathic however these underlying liver disease issues she would need to be monitored. Patient is a waiting for both echo and venous Dopplers to exclude other etiology which are contributing to swelling however I do think it is likely due to her liver problems.
[2018-03-14] MEDS: Magnesium Sulfate 1 gm in D5W 1 GM/100 ML BAG IVPB SCH ×2 (12:50→13:45)
[2018-03-14] MEDS: Simethicone 80 mg Chewtab PO PRN (17:44)
[2018-03-15] MEDS: Levothyroxine 125 MCG TAB PO SCH (05:42)
[2018-03-15] MEDS: (Novolin R) Insulin Human Regular 100 units/ml vial SC SCH ×4 (07:33→21:29)
[2018-03-15 07:59] LABS: BASO % 0.9 % (0.0-2.0); EOS # 0.1 K/uL (0.0-0.7); EOS % 2.2 % (0.0-4.0); HEMOGLOBIN 11.6 g/dL (11.0-16.0); LYMPH # 1.8 K/uL (1.0-4.3); LYMPH % 35.2 % (20.0-40.0); MEAN CELL VOLUME 94.8 fL (81.0-99.0); MEAN CORPUSCULAR HEMOGLOBIN 32.5 pg (27.0-31.0); MEAN CORPUSCULAR HGB CONC 34.3 g/dL (33.0-37.0); MEAN PLATELET VOLUME 10.8 fL (7.2-11.7); MONO # 0.6 K/uL (0.0-0.8); NEUT # 2.6 K/uL (1.8-7.0); NEUT % 50.7 % (50.0-75.0); NRBC % 0.1 % (0.0-2.0); RBC 3.57 Mil/uL (3.80-5.20); WHITE BLOOD COUNT 5.1 K/uL (4.8-10.8)
[2018-03-15 08:00] LABS: INR 1.2; PROTHROMBIN TIME 13.5 SECONDS (9.7-12.2)
--- NOTE | 2018-03-15 08:04 | CP.PCM.PN ---
Subjective - Date & Time of Evaluation Date of Evaluation: 03/15/18 Time of Evaluation: 08:04 - Subjective Subjective: PGY-1 Medicine Progress Note for Dr. Stoddard Patient seen and examined at bedside this AM, no acute overnight events reported. She denies any chest pain, palpitations, shortness of breath, abdominal pain, n/v/d/c. Bilateral lower extremity swelling noted, which patient states is mildly improved. She does complain of L neck spasms for the past day. Patient was also examined by GI doctor this morning. Objective - Vital Signs/Intake and Output Vital Signs (last 24 hours): Temp Pulse Resp BP Pulse Ox 98.3 F 61 20 129/80 99 03/15/18 07:46 03/15/18 07:46 03/15/18 07:46 03/15/18 07:46 03/15/18 07:46 Intake and Output: 03/15/18 03/15/18 06:59 18:59 Intake Total 300 240 Balance 300 240 - Medications Medications: Current Medications Amlodipine Besylate (Norvasc) 5 mg PO DAILY [facility] Last Admin: 03/14/18 09:45 Dose: 5 mg Furosemide (Lasix) 40 mg PO DAILY [facility] Last Admin: 03/14/18 09:48 Dose: 40 mg Influenza Virus Vaccine (Flucelvax Quad [id number] Syr) 60 mcg IM .ONCE ONE Stop: 03/15/18 10:01 Insulin Human Regular (Novolin R) 0 unit SC [facility]; Protocol Last Admin: 03/14/18 22:00 Dose: 3 units Lactulose (Enulose) 20 gm PO QID [facility] Last Admin: 03/14/18 21:03 Dose: Not Given Levothyroxine Sodium (Synthroid) 125 mcg PO DAILY@0630 [facility] Last Admin: 03/15/18 05:42 Dose: 125 mcg Losartan Potassium (Cozaar) 100 mg PO DAILY [facility] Last Admin: 03/14/18 09:44 Dose: 100 mg Meclizine HCl (Antivert) 25 mg PO DAILY PRN PRN Reason: Dizziness Metoprolol Succinate (Toprol Xl) 200 mg PO DAILY [facility] Last Admin: 03/14/18 09:44 Dose: 200 mg Pneumococcal Polyvalent Vaccine (Pneumovax 23 Vaccine) 0.5 ml IM .ONCE ONE Stop: 03/15/18 10:01 Simethicone (Mylicon Chew Tab) 80 mg PO QID PRN PRN Reason: GI distress Last Admin: 03/14/18 17:44 Dose: 80 mg Spironolactone (Aldactone) 50 mg PO DAILY [facility] Last Admin: 03/14/18 09:48 Dose: 50 mg - Labs Labs: 03/15/18 07:46 03/14/18 09:31 PT 13.5 SECONDS (9.7-12.2) H 03/15/18 07:46 INR 1.2 03/15/18 07:46 - Constitutional Appears: Non-toxic, No Acute Distress - Head Exam Head Exam: ATRAUMATIC, NORMAL INSPECTION, NORMOCEPHALIC - Eye Exam Eye Exam: EOMI, Normal appearance Pupil Exam: NORMAL ACCOMODATION - ENT Exam ENT Exam: Mucous Membranes Moist, Normal Exam - Neck Exam Neck Exam: Full ROM, Normal Inspection, Tenderness (L sided ) - Respiratory Exam Respiratory Exam: Clear to Ausculation Bilateral, NORMAL BREATHING PATTERN. absent: Accessory Muscle Use, Rales, Rhonchi, Wheezes, Respiratory Distress, Stridor - Cardiovascular Exam Cardiovascular Exam: REGULAR RHYTHM, +S1, +S2 - GI/Abdominal Exam GI & Abdominal Exam: Distended, Soft, Normal Bowel Sounds. absent: Firm, Guarding, Rigid, Tenderness, Organomegaly, Rebound Additional comments: Hess's sign: negative Positive fluid wave - Extremities Exam Extremities Exam: Calf Tenderness, Normal Capillary Refill, Pedal Edema (b/l 2+ edema ) - Neurological Exam Neurological Exam: Alert, Awake, Oriented x3 - Skin Skin Exam: Dry, Intact, Warm Additional comments: erythematous patch noted over R anterior tirado, non-tender to palptation, warm to touch Assessment and Plan - Assessment and Plan (Free Text) Assessment: 83 year old French female with PMHx of HTN, DM presenting with AMS, since resolved, hepatic cirrhosis with ascited and reactive HCV antibody. Plan: Hepatic Encephalopathy Hepatic Cirrhosis with Ascites -Ammonia level downtrending; 68-->22 (03/13/18) -AST/ALT: 83/50 -ALP 207 -CT head (03/12): Nonspecific white matter changes and chronic appearing lacunar type infarct. See full report. -Abdominal U/S: Nodular hepatic contour. Echogenic liver may be sen in the sett ing of hepatic parenchymal dz or fatty infiltration. Correlate clinically for cirrhosis. Cholecystectomy. Splenomegaly. Moderate abdominal ascites. -CT abdomen/pelvis (01/2018): Hepatic cirrhosis. Splenomegaly. Ascites. Cholecystectomy. Dilated common bile duct without associated intrahepatic bilia ry dilatation. Uncertain significance. Correlate with laboratory evaluation for any evidence of biliary obstruction. Mural thickening of the proximal duodenum, nonspecific. Mesenteric edema, nonspecific. Minor findings as above. (from prior ED visit noting hepatic cirrhosis) -GI recs (Dr. Cho) appreciated -f/u viral load -fibrosis score will need to be checked as outpatient -continue with sodium restriction, diuretics -IR consulted (Dr. Moreno) for paracentesis -f/u fluid studies -Lactulose 20 g QID: hold for diarrhea Hepatitis C antibody Reactive -Hep AB with reflex negative -f/u HCV RNA qual -Abdominal U/S: Nodular hepatic contour. Echogenic liver may be sen in the setting of hepatic parenchymal dz or fatty infiltration. Correlate clinically for cirrhosis. Cholecystectomy. Splenomegaly. Moderate abdominal ascites. CXR Infiltrate -CXR (03/12): Moderate pulmonary congestion and suspected infiltrate within upper lobes -CT chest (03/13): No focal consolidation seen (see full report). Mild pulmonary venous congestion. 2 mm subpleural nodule. nodular hepatic contour, abdominal ascites. cardiomegaly. -Pt not on IV abx -no clinical sx's of pneumonia, CT chest shows no infiltrate DM -home metformin held -ISS -Accuchecks ACHS -Hypoglycemic protocol -f/u lipid panel -f/u HbA1C Essential HTN -Losartan 100 mg PO daily -Norvasc 5 mg PO daily Aldactone 50 mg PO daily -Metoprolol 200 mg PO daily Hx of Hypothyroidism -Elevated TSH, normal Free T4 -Levothyroxine 125mcg daily Bilateral Pedal Edema -etiology unknown, denies pmhx of CHF -ECHO excludes CHF -Home lasix 40 mg PO daily restarted -f/u b/l venous dopplers PPx, Diet, Disposition -DVT ppx: scds CI 2/2 LE edemia, medication CI 2/2 thrombocytopenia -Diet: HHD Case discussed with Dr. Arlyn Kapadia DO, PGY-1
[2018-03-15 08:11] LABS: ALB/GLOB RATIO 0.6 (1.0-2.1)
[2018-03-15] MEDS: Metoprolol Succinate 100 mg XL Tab PO SCH (09:39)
[2018-03-15] MEDS ORDERED: Lidocaine Hydrochloride 0 ML INJ ONE (09:56)
[2018-03-15] MEDS ORDERED: Pneumococcal 23-Valent Vaccine IM ONE (10:00)
[2018-03-15] MEDS ORDERED: Influenza Vaccine 60 mcg/0.5 mL SYR (4YR UP) IM ONE (10:00)
--- NOTE | 2018-03-15 10:30 | CP.PCM.PN ---
Subjective - Date & Time of Evaluation Date of Evaluation: 03/15/18 Time of Evaluation: 10:27 - Subjective Subjective: Patient continues to complain of neck pain. She denies having nausea, vomiting, abdominal pain. Objective - Vital Signs/Intake and Output Vital Signs (last 24 hours): Temp Pulse Resp BP Pulse Ox 98.3 F 61 20 129/80 99 03/15/18 07:46 03/15/18 07:46 03/15/18 07:46 03/15/18 09:39 03/15/18 07:46 Intake and Output: 03/15/18 03/15/18 06:59 18:59 Intake Total 300 240 Balance 300 240 - Medications Medications: Current Medications Amlodipine Besylate (Norvasc) 5 mg PO DAILY [facility] Last Admin: 03/15/18 09:39 Dose: 5 mg Furosemide (Lasix) 40 mg PO DAILY [facility] Last Admin: 03/15/18 09:39 Dose: 40 mg Insulin Human Regular (Novolin R) 0 unit SC ACHS [facility]; Protocol Last Admin: 03/15/18 07:33 Dose: 4 units Lactulose (Enulose) 20 gm PO QID [facility] Last Admin: 03/15/18 09:33 Dose: Not Given Levothyroxine Sodium (Synthroid) 125 mcg PO DAILY@0630 [facility] Last Admin: 03/15/18 05:42 Dose: 125 mcg Losartan Potassium (Cozaar) 100 mg PO DAILY [facility] Last Admin: 03/15/18 09:39 Dose: 100 mg Meclizine HCl (Antivert) 25 mg PO DAILY PRN PRN Reason: Dizziness Metoprolol Succinate (Toprol Xl) 200 mg PO DAILY [facility] Last Admin: 03/15/18 09:39 Dose: 200 mg Simethicone (Mylicon Chew Tab) 80 mg PO QID PRN PRN Reason: GI distress Last Admin: 03/14/18 17:44 Dose: 80 mg Spironolactone (Aldactone) 50 mg PO DAILY [facility] Last Admin: 03/15/18 09:39 Dose: 50 mg - Labs Labs: 03/15/18 07:46 03/15/18 07:46 PT 13.5 SECONDS (9.7-12.2) H 03/15/18 07:46 INR 1.2 03/15/18 07:46 - Constitutional Appears: No Acute Distress - Head Exam Head Exam: ATRAUMATIC, NORMOCEPHALIC - Eye Exam Eye Exam: EOMI, PERRL - Neck Exam Neck Exam: absent: Lymphadenopathy, Thyromegaly - Respiratory Exam Respiratory Exam: NORMAL BREATHING PATTERN. absent: Rales, Rhonchi, Wheezes - Cardiovascular Exam Cardiovascular Exam: REGULAR RHYTHM, +S1, +S2 - GI/Abdominal Exam GI & Abdominal Exam: Soft, Normal Bowel Sounds. absent: Tenderness, Mass, Organomegaly - Rectal Exam Rectal Exam: Deferred - Extremities Exam Extremities Exam: Pedal Edema. absent: Calf Tenderness Assessment and Plan (1) Hepatitis C Assessment & Plan: Hepatitis C JUANCARLOS is positive. LFTs today show AST 83, ALT 50, ALKP 207. The viral load is pending, and the Fibrosis score will need to be checked as an outpatient. Recommend continuing sodium restriction and diuretics for now. Status: Acute
--- NOTE | 2018-03-15 12:20 | CARD ---
APPROVED REPORT Date of service: 03/12/2018 EKG Measurement Heart [id number] <Conclusion> Normal sinus rhythm Low voltage QRS Nonspecific ST and T wave abnormality Abnormal ECG
--- NOTE | 2018-03-15 16:27 | CARD ---
APPROVED REPORT Date of service: 03/15/2018 EXAM: Two-dimensional and M-mode echocardiogram with Doppler and color Doppler. INDICATION Congestive Heart Failure b/1 2+ edema 2D DIMENSIONS IVSd1.1 (0.7-1.1cm)LVDd4.1 (3.9-5.9cm) PWd1.0 (0.7-1.1cm)LA Pwpppr74 (18-58mL) LVDs2.3 (2.5-4.0cm)FS (%) 44.0 % LVEF (%)75.7 (>50%)LVEF (Dudley's)75.62 % M-Mode DIMENSIONS Left Atrium (MM)4.82 (2.5-4.0cm)IVSd1.07 (0.7-1.1cm) Aortic Root3.15 (2.2-3.7cm)LVDd5.50 (4.0-5.6cm) Aortic Cusp Exc.1.83 (1.5-2.0cm)PWd0.95 (0.7-1.1cm) FS (%) 51 %LVDs2.68 (2.0-3.8cm) LVEF (%)82 (>50%) Mitral Valve MV E Svghxznv998.4cm/sMV A Sumgodvg35.0cm/sE/A ratio1.3 TDI Lateral E' Peak V5.84cm/sMedial E' Peak V6.35cm/sE/Lateral E'20.8 E/Medial E'19.1 Tricuspid Valve TR Peak [id number]/sTR Peak [id number] LEFT VENTRICLE The left ventricle is normal size. There is normal left ventricular wall thickness. The Ejection Fraction is 60-65%. There is normal LV segmental wall motion. The left atrial pressure is moderately elevated. RIGHT VENTRICLE The right ventricle is normal size. The right ventricular systolic function is normal. ATRIA The left atrium is moderately dilated. The right atrium size is normal. The interatrial septum is intact with no evidence for an atrial septal defect. AORTIC VALVE The aortic valve is mildly calcified. The aortic valve is trileaflet. No aortic regurgitation is present. MITRAL VALVE Mitral annular calcification is moderate to severe. Mitral regurgitation is trace. TRICUSPID VALVE The tricuspid valve is normal in structure. There is mild tricuspid regurgitation. Right ventricular systolic pressure is estimated at 25 mmHg. There is no pulmonary hypertension. PULMONIC VALVE The pulmonary valve is normal in structure. There is mild pulmonic valvular regurgitation. GREAT VESSELS The aortic root is normal size. The aortic root displays mild to moderate sclerocalcific changes of the aortic root. The IVC is normal in size and collapses >50% with inspiration. PERICARDIAL EFFUSION There is no pericardial effusion. <Conclusion> The left ventricle is normal size. The Ejection Fraction is 60-65%. The left atrial pressure is moderately elevated. The left atrium is moderately dilated. Mitral annular calcification is moderate to severe. There is mild tricuspid regurgitation. Right ventricular systolic pressure is estimated at 25 mmHg. There is no pulmonary hypertension. The aortic root is normal size. The aortic root displays mild to moderate sclerocalcific changes of the aortic root. There is no pericardial effusion.
[2018-03-16] MEDS: Levothyroxine 125 MCG TAB PO SCH (06:01)
--- NOTE | 2018-03-16 06:54 | CP.PCM.PN ---
Subjective - Date & Time of Evaluation Date of Evaluation: 03/16/18 Time of Evaluation: 06:54 - Subjective Subjective: PGY-1 Medicine Progress Note for Dr. Stoddard Patient seen and examined sitting by bedside. No acute overnight events reported. Patient refused paracentesis procedure yesterday, says no one explained to her "anything about the procedure", wishes to speak to her PMD (Dr. Meza) about it. Patient was told that PMD was reached yesterday, is up to date on patient's hospital course, urges patient to contact his service today to explain paracentesis. Patient was informed of this, says she "will think about it". Patient denies any abdominal pain, keeps reiterating she thought she was distended because she "was gaining weight". No other acute somatic complaints this morning. Of note, patient has history of noncompliance per PMD. Objective - Vital Signs/Intake and Output Vital Signs (last 24 hours): Temp Pulse Resp BP Pulse Ox 99.2 F 62 20 117/63 96 03/16/18 00:00 03/16/18 00:00 03/16/18 00:00 03/16/18 00:00 03/16/18 00:00 Intake and Output: 03/15/18 03/16/18 18:59 06:59 Intake Total 240 250 Balance 240 250 - Medications Medications: Current Medications Amlodipine Besylate (Norvasc) 5 mg PO DAILY [facility] Last Admin: 03/15/18 09:39 Dose: 5 mg Furosemide (Lasix) 40 mg PO DAILY [facility] Last Admin: 03/15/18 09:39 Dose: 40 mg Insulin Human Regular (Novolin R) 0 unit SC ACHS [facility]; Protocol Last Admin: 03/15/18 21:29 Dose: 2 units Lactulose (Enulose) 20 gm PO QID [facility] Last Admin: 03/15/18 21:30 Dose: Not Given Levothyroxine Sodium (Synthroid) 125 mcg PO DAILY@0630 [facility] Last Admin: 03/16/18 06:01 Dose: 125 mcg Losartan Potassium (Cozaar) 100 mg PO DAILY [facility] Last Admin: 03/15/18 09:39 Dose: 100 mg Meclizine HCl (Antivert) 25 mg PO DAILY PRN PRN Reason: Dizziness Metoprolol Succinate (Toprol Xl) 200 mg PO DAILY [facility] Last Admin: 03/15/18 09:39 Dose: 200 mg Simethicone (Mylicon Chew Tab) 80 mg PO QID PRN PRN Reason: GI distress Last Admin: 03/14/18 17:44 Dose: 80 mg Spironolactone (Aldactone) 50 mg PO DAILY [facility] Last Admin: 03/15/18 09:39 Dose: 50 mg - Labs Labs: 03/15/18 07:46 03/15/18 07:46 PT 13.5 SECONDS (9.7-12.2) H 03/15/18 07:46 INR 1.2 03/15/18 07:46 - Constitutional Appears: Non-toxic, No Acute Distress - Head Exam Head Exam: ATRAUMATIC, NORMAL INSPECTION, NORMOCEPHALIC - Eye Exam Eye Exam: EOMI, Normal appearance Pupil Exam: NORMAL ACCOMODATION - ENT Exam ENT Exam: Mucous Membranes Moist, Normal Exam - Neck Exam Neck Exam: Full ROM, Normal Inspection. absent: Tenderness - Respiratory Exam Respiratory Exam: Clear to Ausculation Bilateral, NORMAL BREATHING PATTERN. absent: Accessory Muscle Use, Rales, Rhonchi, Wheezes, Respiratory Distress, Stridor - Cardiovascular Exam Cardiovascular Exam: REGULAR RHYTHM, +S1, +S2 - GI/Abdominal Exam GI & Abdominal Exam: Distended, Soft, Normal Bowel Sounds. absent: Firm, Guarding, Rigid, Tenderness, Rebound Additional comments: Hess's sign: negative Positive fluid wave - Extremities Exam Extremities Exam: Normal Capillary Refill, Pedal Edema (2+ pitting ). absent: Calf Tenderness - Back Exam Back Exam: NORMAL INSPECTION. absent: CVA tenderness (L), CVA tenderness (R) - Neurological Exam Neurological Exam: Alert, Awake, Oriented x3 - Skin Skin Exam: Dry, Intact, Normal Color, Warm Assessment and Plan - Assessment and Plan (Free Text) Assessment: 83 year old [place] female with PMHx of HTN, DM presenting with AMS, since resolved, hepatic cirrhosis with ascited and reactive HCV antibody. Plan: Hepatic Cirrhosis with Ascites History of hepatic encephalopathy -Ammonia level downtrending; 68-->22 (03/13/18) -AST/ALT: 94/47 (03/16) -ALP 185 (03/16) -CT head (03/12): Nonspecific white matter changes and chronic appearing lacunar type infarct. See full report. -Abdominal U/S: Nodular hepatic contour. Echogenic liver may be sen in the setting of hepatic parenchymal dz or fatty infiltration. Correlate clinically for cirrhosis. Cholecystectomy. Splenomegaly. Moderate abdominal ascites. -CT abdomen/pelvis (01/2018): Hepatic cirrhosis. Splenomegaly. Ascites. Cholecystectomy. Dilated common bile duct without associated intrahepatic biliary dilatation. Uncertain significance. Correlate with laboratory evaluation for any evidence of biliary obstruction. Mural thickening of the proximal duodenum, nonspecific. Mesenteric edema, nonspecific. Minor findings as above. (from prior ED visit noting hepatic cirrhosis) -GI recs (Dr. Cho) appreciated -Renal function has deteriorated, eGFR 43, down from 60 on 03/13/18 -Will encourage oral fluids -Recommend paracentesis -IR consulted (Dr. Moreno) for paracentesis -patient refused procedure yesterday -more amenable to procedure today after speaking to hospitalist; her concern is the procedure being painful -f/u fluid studies Hepatitis C antibody Reactive -Hep AB with reflex negative -HCV JUANCARLOS positive -GI recs (Dr. Cho) appreciated -fibrosis score will need to be checked as outpatient -f/u viral load -Abdominal U/S: Nodular hepatic contour. Echogenic liver may be sen in the setting of hepatic parenchymal dz or fatty infiltration. Correlate clinically for cirrhosis. Cholecystectomy. Splenomegaly. Moderate abdominal ascites. CXR Infiltrate -CXR (03/12): Moderate pulmonary congestion and suspected infiltrate within upper lobes -CT chest (03/13): No focal consolidation seen (see full report). Mild pulmonary venous congestion. 2 mm subpleural nodule. nodular hepatic contour, abdominal ascites. cardiomegaly. -Pt not on IV abx -no clinical sx's of pneumonia, CT chest shows no infiltrate DM -HbA1C: 8.3 -home metformin held -[facility] -Accuchecks ACHS -Hypoglycemic protocol -lipid panel wnl Essential HTN -Losartan 100 mg PO daily -Norvasc 5 mg PO daily -Aldactone 50 mg PO daily -Metoprolol 200 mg PO daily Hx of Hypothyroidism -Elevated TSH, normal Free T4 -Levothyroxine 125mcg daily Bilateral Pedal Edema -etiology unknown, denies pmhx of CHF -b/l venous dopplers negative -ECHO (03/15): LV normal size, EF 60-65%. LA moderately dilated, mitral annular calcification moderate-severe. Mild tricuspid regurgitation. No pulmonary HTN noted. No pericardial effusion -Home lasix 40 mg PO daily restarted PPx, Diet, Disposition -DVT ppx: scds CI 2/2 LE edema, medication CI 2/2 thrombocytopenia -Diet: HHD Case discussed with Dr. Arlyn Kapadia DO, PGY-1
[2018-03-16 06:57] LABS: BASO % 0.8 % (0.0-2.0); EOS # 0.1 K/uL (0.0-0.7); LYMPH # 1.3 K/uL (1.0-4.3); LYMPH % 29.5 % (20.0-40.0); MEAN CELL VOLUME 94.5 fL (81.0-99.0); MEAN CORPUSCULAR HEMOGLOBIN 32.2 pg (27.0-31.0); MEAN PLATELET VOLUME 9.6 fL (7.2-11.7); MONO # 0.5 K/uL (0.0-0.8); MONO % 11.3 % (0.0-10.0); NEUT # 2.5 K/uL (1.8-7.0); NEUT % 56.4 % (50.0-75.0); NRBC % 0.1 % (0.0-2.0); RBC 3.74 Mil/uL (3.80-5.20); RED CELL DISTRIBUTION WIDTH 15.1 % (11.5-14.5); WHITE BLOOD COUNT 4.5 K/uL (4.8-10.8)
[2018-03-16 07:13] LABS: ALB/GLOB RATIO 0.6 (1.0-2.1); ALBUMIN 3.1 g/dL (3.5-5.0); CALCIUM 8.1 mg/dl (8.6-10.4)
[2018-03-16 07:57] LABS: INR 1.2; PROTHROMBIN TIME 13.3 SECONDS (9.7-12.2)
[2018-03-16] MEDS: (Novolin R) Insulin Human Regular 100 units/ml vial SC SCH ×4 (08:18→22:32)
[2018-03-16] MEDS ORDERED: Magnesium Sulfate 1 gm in D5W 1 GM/100 ML BAG IVPB ONE (08:30)
[2018-03-16] MEDS: Metoprolol Succinate 100 mg XL Tab PO SCH (10:40)
--- NOTE | 2018-03-16 10:50 | CP.PCM.PN ---
Subjective - Date & Time of Evaluation Date of Evaluation: 03/16/18 Time of Evaluation: 10:46 - Subjective Subjective: Patient refused paracentesis yesterday. She denies having abdominal pain, nausea, vomiting. She has not had a bowel movement in several days. Objective - Vital Signs/Intake and Output Vital Signs (last 24 hours): Temp Pulse Resp BP Pulse Ox 98 F 61 20 97/60 L 96 03/16/18 08:10 03/16/18 08:10 03/16/18 08:10 03/16/18 08:10 03/16/18 08:10 Intake and Output: 03/16/18 03/16/18 06:59 18:59 Intake Total 250 180 Balance 250 180 - Medications Medications: Current Medications Amlodipine Besylate (Norvasc) 5 mg PO DAILY [facility] Last Admin: 03/16/18 10:40 Dose: Not Given Furosemide (Lasix) 40 mg PO DAILY [facility] Last Admin: 03/16/18 10:40 Dose: Not Given Insulin Human Regular (Novolin R) 0 unit SC [facility]; Protocol Last Admin: 03/16/18 08:18 Dose: 3 units Lactulose (Enulose) 20 gm PO QID [facility] Last Admin: 03/15/18 21:30 Dose: Not Given Levothyroxine Sodium (Synthroid) 125 mcg PO DAILY@0630 [facility] Last Admin: 03/16/18 06:01 Dose: 125 mcg Losartan Potassium (Cozaar) 100 mg PO DAILY [facility] Last Admin: 03/16/18 10:40 Dose: Not Given Meclizine HCl (Antivert) 25 mg PO DAILY PRN PRN Reason: Dizziness Metoprolol Succinate (Toprol Xl) 200 mg PO DAILY [facility] Last Admin: 03/16/18 10:40 Dose: Not Given Simethicone (Mylicon Chew Tab) 80 mg PO QID PRN PRN Reason: GI distress Last Admin: 03/14/18 17:44 Dose: 80 mg Spironolactone (Aldactone) 50 mg PO DAILY [facility] Last Admin: 03/16/18 10:40 Dose: Not Given - Labs Labs: 03/16/18 06:35 03/16/18 06:35 PT 13.3 SECONDS (9.7-12.2) H 03/16/18 06:35 INR 1.2 03/16/18 06:35 - Constitutional Appears: No Acute Distress - Head Exam Head Exam: ATRAUMATIC, NORMOCEPHALIC - Eye Exam Eye Exam: EOMI, PERRL - Neck Exam Neck Exam: absent: Lymphadenopathy, Thyromegaly - Respiratory Exam Respiratory Exam: NORMAL BREATHING PATTERN. absent: Rales, Rhonchi, Wheezes - Cardiovascular Exam Cardiovascular Exam: REGULAR RHYTHM, +S1, +S2. absent: Gallop, Rubs, Murmur - GI/Abdominal Exam GI & Abdominal Exam: Distended, Soft, Normal Bowel Sounds. absent: Tenderness, Organomegaly - Rectal Exam Rectal Exam: Deferred - Extremities Exam Extremities Exam: Pedal Edema. absent: Calf Tenderness Assessment and Plan (1) Hepatitis C Assessment & Plan: Patient refused paracentesis yesterday. Renal function has deteriorated, eGFR 43, down from 60 on 03/13/18. Will encourage oral fluids. Recommend paracentesis, with specimens for C and S, cell count and differential, cytology, and albumin and total protein. Status: Acute
--- NOTE | 2018-03-16 15:09 | VASCLAB ---
Date of service: 03/15/2018 PROCEDURE: Lower Extremity Venous Duplex Exam. HISTORY: LE edema PRIORS: None. TECHNIQUE: Bilateral common femoral, femoral, popliteal and posterior tibial, peroneal and great saphenous veins were evaluated. Flow was assessed with color Doppler, compressibility, assessment of phasic flow and augmentation response. Report prepared by Jamin Cruz, TIFFANIE, RVT FINDINGS: RIGHT: 1. Common Femoral Vein: 1.1. Compressibility - Fully compressible: Thrombus - None : Flow - Phasic: Augmentation -Normal: Reflux - None. 2. Femoral Vein: 2.1. Compressibility - Fully compressible: Thrombus - None : Flow - Phasic: Augmentation -Normal: Reflux - None. 3. Popliteal Vein: 3.1. Compressibility - Fully compressible: Thrombus - None : Flow - Phasic: Augmentation -Normal: Reflux - None. 4. Posterior Tibial Vein: 4.1. Compressibility - : Thrombus - : Flow - : Augmentation -: Reflux - . 5. Peroneal Vein: 5.1. Compressibility - : Thrombus - : Flow - : Augmentation -: Reflux - . 6. Great Saphenous Vein: 6.1. Compressibility - Fully compressible: Thrombus - None: Flow - Phasic: Augmentation - Normal: Reflux - None. LEFT: 1. Common Femoral Vein: 1.1. Compressibility - Fully compressible: Thrombus - None: Flow - Phasic: Augmentation -Normal: Reflux - None. 2. Femoral Vein: 2.1. Compressibility - Fully compressible: Thrombus - None: Flow - Phasic: Augmentation -Normal: Reflux - None. 3. Popliteal Vein: 3.1. Compressibility - Fully compressible: Thrombus - None : Flow - Phasic: Augmentation -Normal: Reflux - None. 4. Posterior Tibial Vein: 4.1. Compressibility - : Thrombus - : Flow - : Augmentation -: Reflux - . 5. Peroneal Vein: 5.1. Compressibility - : Thrombus - : Flow - : Augmentation -: Reflux - . 6. Great Saphenous Vein: 6.1. Compressibility - Fully compressible: Thrombus - None: Flow - Phasic: Augmentation - Normal: Reflux - None. OTHER FINDINGS: Due to swelling in the calves, bilateral peroneal and posterior tibial vein were not visualized. IMPRESSION: Right: No evidence of deep or superficial vein thrombosis of the right lower extremity. Normal valve function noted of the right side. Left: No evidence of deep or superficial vein thrombosis of the left lower extremity. Normal valve function noted of the left side.
[2018-03-17] MEDS: Levothyroxine 125 MCG TAB PO SCH (06:05)
--- NOTE | 2018-03-17 06:59 | CP.PCM.PN ---
Subjective - Date & Time of Evaluation Date of Evaluation: 03/17/18 Time of Evaluation: 06:59 - Subjective Subjective: PGY-1 Medicine Progress Note for Dr. Wood Patient seen and examined at bedside this AM, resting comfortably. No acute overnight events reported. Patient denies any chest pain, palpitations, abdominal pain, n/v/d/c. No other acute somatic complaints at this time. Patient originally expected to have paracentesis this AM but there is no availability per nursing. Paracentesis now scheduled for tomorrow. Objective - Vital Signs/Intake and Output Vital Signs (last 24 hours): Temp Pulse Resp BP Pulse Ox 98 F 77 20 133/62 96 03/17/18 00:00 03/17/18 00:00 03/17/18 00:00 03/17/18 00:00 03/17/18 00:00 Intake and Output: 03/16/18 03/17/18 18:59 06:59 Intake Total 180 800 Balance 180 800 - Medications Medications: Current Medications Amlodipine Besylate (Norvasc) 5 mg PO DAILY [facility] Last Admin: 03/16/18 10:40 Dose: Not Given Furosemide (Lasix) 40 mg PO DAILY [facility] Last Admin: 03/16/18 10:40 Dose: Not Given Insulin Human Regular (Novolin R) 0 unit SC [facility]; Protocol Last Admin: 03/16/18 22:32 Dose: 4 units Lactulose (Enulose) 20 gm PO QID [facility] Last Admin: 03/16/18 22:34 Dose: Not Given Levothyroxine Sodium (Synthroid) 125 mcg PO DAILY@0630 [facility] Last Admin: 03/17/18 06:05 Dose: 125 mcg Losartan Potassium (Cozaar) 100 mg PO DAILY [facility] Last Admin: 03/16/18 10:40 Dose: Not Given Meclizine HCl (Antivert) 25 mg PO DAILY PRN PRN Reason: Dizziness Metoprolol Succinate (Toprol Xl) 200 mg PO DAILY [facility] Last Admin: 03/16/18 10:40 Dose: Not Given Simethicone (Mylicon Chew Tab) 80 mg PO QID PRN PRN Reason: GI distress Last Admin: 03/14/18 17:44 Dose: 80 mg Spironolactone (Aldactone) 50 mg PO DAILY [facility] Last Admin: 03/16/18 10:40 Dose: Not Given - Labs Labs: 03/16/18 06:35 03/16/18 06:35 PT 13.3 SECONDS (9.7-12.2) H 03/16/18 06:35 INR 1.2 03/16/18 06:35 - Constitutional Appears: Non-toxic, No Acute Distress - Head Exam Head Exam: ATRAUMATIC, NORMAL INSPECTION, NORMOCEPHALIC - Eye Exam Eye Exam: EOMI, Normal appearance Pupil Exam: NORMAL ACCOMODATION - ENT Exam ENT Exam: Mucous Membranes Moist, Normal Exam - Neck Exam Neck Exam: Full ROM, Normal Inspection - Respiratory Exam Respiratory Exam: Clear to Ausculation Bilateral, NORMAL BREATHING PATTERN. absent: Accessory Muscle Use, Rales, Rhonchi, Wheezes, Respiratory Distress, Str idor - Cardiovascular Exam Cardiovascular Exam: REGULAR RHYTHM, +S1, +S2 - GI/Abdominal Exam GI & Abdominal Exam: Distended, Soft, Normal Bowel Sounds. absent: Firm, Guarding, Rigid, Tenderness, Organomegaly, Rebound Additional comments: Hess's sign: negative Positive fluid wave - Extremities Exam Extremities Exam: Full ROM, Normal Capillary Refill, Pedal Edema. absent: Calf Tenderness - Back Exam Back Exam: NORMAL INSPECTION - Neurological Exam Neurological Exam: Alert, Awake, Oriented x3 - Skin Skin Exam: Dry, Intact, Warm Assessment and Plan - Assessment and Plan (Free Text) Assessment: 83 year old [place] female with PMHx of HTN, DM presenting with AMS, since resolved, hepatic cirrhosis with ascited and reactive HCV antibody Plan: Hepatic Cirrhosis with Ascites History of hepatic encephalopathy -Ammonia level downtrending; 68-->22 (03/13/18) -AST/ALT: 94/47 (03/16) -ALP 185 (03/16) -CT head (03/12): Nonspecific white matter changes and chronic appearing lacunar type infarct. See full report. -Abdominal U/S: Nodular hepatic contour. Echogenic liver may be sen in the setting of hepatic parenchymal dz or fatty infiltration. Correlate clinically for cirrhosis. Cholecystectomy. Splenomegaly. Moderate abdominal ascites. -CT abdomen/pelvis (01/2018): Hepatic cirrhosis. Splenomegaly. Ascites. Cholecystectomy. Dilated common bile duct without associated intrahepatic biliary dilatation. Uncertain significance. Correlate with laboratory evaluation for any evidence of biliary obstruction. Mural thickening of the proximal duodenum, nonspecific. Mesenteric edema, nonspecific. Minor findings as above. (from prior ED visit noting hepatic cirrhosis) -GI recs (Dr. Cho) appreciated -Renal function has deteriorated, eGFR 43, down from 60 on 03/13/18 -Will encourage oral fluids -Recommend paracentesis -IR consulted (Dr. Moreno) for paracentesis -patient was expected to have procedure this AM but schedule is full -set for paracentesis tomorrow per nursing -fluid studies ordered Hepatitis C antibody Reactive -Hep AB with reflex negative -HCV JUANCARLOS positive -GI recs (Dr. Cho) appreciated -fibrosis score will need to be checked as outpatient -f/u viral load -Abdominal U/S: Nodular hepatic contour. Echogenic liver may be sen in the setting of hepatic parenchymal dz or fatty infiltration. Correlate clinically for cirrhosis. Cholecystectomy. Splenomegaly. Moderate abdominal ascites. CXR Infiltrate -CXR (03/12): Moderate pulmonary congestion and suspected infiltrate within upper lobes -CT chest (03/13): No focal consolidation seen (see full report). Mild pulmonary venous congestion. 2 mm subpleural nodule. nodular hepatic contour, abdominal ascites. cardiomegaly. -Pt not on IV abx -no clinical sx's of pneumonia, CT chest shows no infiltrate DM -HbA1C: 8.3 -home metformin held -[facility] -Accuchecks ACHS -Hypoglycemic protocol -lipid panel wnl Essential HTN -Losartan 100 mg PO daily -Norvasc 5 mg PO daily -Aldactone 50 mg PO daily -Metoprolol 200 mg PO daily Hx of Hypothyroidism -Elevated TSH, normal Free T4 -Levothyroxine 125mcg daily Bilateral Pedal Edema -etiology unknown, denies pmhx of CHF -b/l venous dopplers negative -ECHO (03/15): LV normal size, EF 60-65%. LA moderately dilated, mitral annular calcification moderate-severe. Mild tricuspid regurgitation. No pulmonary HTN noted. No pericardial effusion -Home lasix 40 mg PO daily restarted PPx, Diet, Disposition -DVT ppx: scds CI 2/2 LE edema, medication CI 2/2 thrombocytopenia -Diet: HHD Case discussed with Dr. Israel Kapadia DO, PGY-1
[2018-03-17 07:32] LABS: BASO # 0.1 K/uL (0.0-0.2); BASO % 0.9 % (0.0-2.0); EOS # 0.1 K/uL (0.0-0.7); EOS % 2.2 % (0.0-4.0); LYMPH # 1.6 K/uL (1.0-4.3); LYMPH % 28.4 % (20.0-40.0); MEAN CELL VOLUME 94.1 fL (81.0-99.0); MEAN CORPUSCULAR HEMOGLOBIN 32.4 pg (27.0-31.0); MEAN CORPUSCULAR HGB CONC 34.4 g/dL (33.0-37.0); MEAN PLATELET VOLUME 10.3 fL (7.2-11.7); MONO # 0.6 K/uL (0.0-0.8); MONO % 11.7 % (0.0-10.0); NEUT # 3.1 K/uL (1.8-7.0); NEUT % 56.8 % (50.0-75.0); RBC 3.69 Mil/uL (3.80-5.20); RED CELL DISTRIBUTION WIDTH 14.6 % (11.5-14.5); WHITE BLOOD COUNT 5.5 K/uL (4.8-10.8)
[2018-03-17 07:35] LABS: INR 1.2; PROTHROMBIN TIME 12.9 SECONDS (9.7-12.2)
[2018-03-17 07:57] LABS: ALB/GLOB RATIO 0.6 (1.0-2.1); ALBUMIN 3.3 g/dL (3.5-5.0); CALCIUM 8.2 mg/dl (8.6-10.4)
[2018-03-17] MEDS: (Novolin R) Insulin Human Regular 100 units/ml vial SC SCH ×3 (08:14→17:04)
[2018-03-17 08:17] VITALS: O2SAT 98
[2018-03-17] MEDS: Metoprolol Succinate 100 mg XL Tab PO SCH (10:50)
--- NOTE | 2018-03-17 16:32 | CP.PCM.DIS ---
Provider - Provider Date of Admission: 03/12/18 20:40 Attending physician: Phuong Stoddard DO Consults: 03/13/18 13:34 Gastroenterology Consult Routine Comment: Consulting Provider: Nir Cho Consulting Physician: Nir Cho Reason for Consult: Ascites, hepatitis C Time Spent in preparation of Discharge (in minutes): 40 Hospital Course - Lab Results Lab Results: Most Recent Lab Values WBC 5.5 K/uL (4.8-10.8) 03/17/18 07:02 RBC 3.69 Mil/uL (3.80-5.20) L 03/17/18 07:02 Hgb 12.0 g/dL (11.0-16.0) 03/17/18 07:02 Hct 34.7 % (34.0-47.0) 03/17/18 07:02 MCV 94.1 fL (81.0-99.0) 03/17/18 07:02 MCH 32.4 pg (27.0-31.0) H 03/17/18 07:02 MCHC 34.4 g/dL (33.0-37.0) 03/17/18 07:02 RDW 14.6 % (11.5-14.5) H 03/17/18 07:02 Plt Count 78 K/uL (130-400) L 03/17/18 07:02 MPV 10.3 fL (7.2-11.7) 03/17/18 07:02 Neut % (Auto) 56.8 % (50.0-75.0) 03/17/18 07:02 Lymph % (Auto) 28.4 % (20.0-40.0) 03/17/18 07:02 [place] % (Auto) 11.7 % (0.0-10.0) H 03/17/18 07:02 Eos % (Auto) 2.2 % (0.0-4.0) 03/17/18 07:02 Baso % (Auto) 0.9 % (0.0-2.0) 03/17/18 07:02 Neut # (Auto) 3.1 K/uL (1.8-7.0) 03/17/18 07:02 Lymph # (Auto) 1.6 K/uL (1.0-4.3) 03/17/18 07:02 [place] # (Auto) 0.6 K/uL (0.0-0.8) 03/17/18 07:02 Eos # (Auto) 0.1 K/uL (0.0-0.7) 03/17/18 07:02 Baso # (Auto) 0.1 K/uL (0.0-0.2) 03/17/18 07:02 Differential Comment 03/12/18 16:43 PT 12.9 SECONDS (9.7-12.2) H 03/17/18 07:02 INR 1.2 03/17/18 07:02 pO2 29 mm/Hg (30-55) L 03/12/18 21:10 VBG pH 7.37 (7.32-7.43) 03/12/18 21:10 VBG pCO2 40 mmHg (40-60) 03/12/18 21:10 VBG HCO3 22.2 mmol/L 03/12/18 21:10 VBG Total CO2 24.3 mmol/L (22-28) 03/12/18 21:10 VBG O2 Sat (Calc) 69.4 % (40-65) H 03/12/18 21:10 VBG Base Excess -2.0 mmol/L (0.0-2.0) L 03/12/18 21:10 VBG Potassium 3.6 mmol/L (3.6-5.2) 03/12/18 21:10 A-a O2 Difference 71.0 mm/Hg 03/12/18 21:10 Sodium 135.0 mmol/l (132-148) 03/12/18 21:10 Chloride 103.0 mmol/L (98-107) 03/12/18 21:10 Glucose 186 mg/dl (65-105) H 03/12/18 21:10 Lactate 3.4 mmol/L (0.7-2.1) H 03/12/18 21:10 FiO2 21.0 % 03/12/18 21:10 Crit Value Called To Sapira 03/12/18 21:10 Crit Value Called By Cow Tender 03/12/18 21:10 Crit Value Read Back Y 03/12/18 21:10 Blood Gas Notified Time 211403/12/18 21:10 Sodium 131 mmol/L (132-148) L 03/17/18 07:02 Potassium 4.0 mmol/L (3.6-5.2) 03/17/18 07:02 Chloride 95 mmol/L (98-107) L 03/17/18 07:02 Carbon Dioxide 30 mmol/L (22-30) 03/17/18 07:02 Anion Gap 11 (10-20) 03/17/18 07:02 BUN 20 mg/dL (7-17) H 03/17/18 07:02 Creatinine 1.1 mg/dL (0.7-1.2) 03/17/18 07:02 Est GFR ( Amer) 58 03/17/18 07:02 Est GFR (Non-Af Amer) 48 03/17/18 07:02 POC Glucose (mg/dL) 325 mg/dL (65-110) H 03/17/18 11:42 Random Glucose 224 mg/dL (65-105) H 03/17/18 07:02 Hemoglobin A1c 8.3 % (4.2-6.5) H 03/15/18 13:03 Lactic Acid 1.5 mmol/L (0.7-2.1) 03/15/18 07:46 Calcium 8.2 mg/dl (8.6-10.4) L 03/17/18 07:02 Phosphorus 3.2 mg/dL (2.5-4.5) 03/17/18 07:02 Magnesium 1.6 mg/dL (1.6-2.3) 03/17/18 07:02 Total Bilirubin 1.6 mg/dL (0.2-1.3) H 03/17/18 07:02 AST 104 U/L (14-36) H 03/17/18 07:02 ALT 57 U/L (9-52) H D 03/17/18 07:02 Alkaline Phosphatase 187 U/L (38-126) H 03/17/18 07:02 Ammonia 22 umol/L (9-33) D 03/13/18 17:04 Total Creatine Kinase 79 U/L (30-135) 03/12/18 16:43 CK-MB (Mass) 2.08 ng/mL (0.0-3.38) 03/12/18 16:43 Troponin I < 0.0120 ng/mL (0.00-0.120) 03/12/18 16:43 NT-Pro-B Natriuret Pep 497 pg/mL (0-900) 03/12/18 21:01 Total Protein 8.5 g/dL (6.3-8.3) H 03/17/18 07:02 Albumin 3.3 g/dL (3.5-5.0) L 03/17/18 07:02 Globulin 5.2 gm/dL (2.2-3.9) H 03/17/18 07:02 Albumin/Globulin Ratio 0.6 (1.0-2.1) L 03/17/18 07:02 Triglycerides 99 mg/dL (0-149) 03/15/18 07:46 Cholesterol 100 mg/dL (0-199) 03/15/18 07:46 LDL Cholesterol Direct 50 mg/dL (0-129) 03/15/18 07:46 HDL Cholesterol 42 mg/dL (30-70) 03/15/18 07:46 Lipase 144 U/L (23-300) 03/14/18 13:40 Alpha Fetoprotein 6.7 ng/mL (0.0-7.5) 03/14/18 13:40 Free T4 1.61 ng/dL (0.78-2.19) 03/15/18 16:59 Free T3 pg/mL 2.18 pg/mL (2.77-5.27) L 03/15/18 07:46 TSH 3rd Generation 18.20 mIU/L (0.46-4.68) H 03/12/18 21:01 Venous Blood Potassium 3.6 mmol/L (3.6-5.2) 03/12/18 21:10 Urine Color Yellow (YELLOW) 03/12/18 17:48 Urine Clarity Clear (Clear) 03/12/18 17:48 Urine pH 5.0 (5.0-8.0) 03/12/18 17:48 Ur Specific [place] 1.010 (1.003-1.030) 03/12/18 17:48 Urine Protein Negative mg/dL (NEGATIVE) 03/12/18 17:48 Urine Glucose (UA) Normal mg/dL (Normal) 03/12/18 17:48 Urine Ketones Negative mg/dL (NEGATIVE) 03/12/18 17:48 Urine Blood 1+ (NEGATIVE) H 03/12/18 17:48 Urine Nitrate Negative (NEGATIVE) 03/12/18 17:48 Urine Bilirubin Negative (NEGATIVE) 03/12/18 17:48 Urine Urobilinogen 2.0 mg/dL (0.2-1.0) H 03/12/18 17:48 Ur Leukocyte Esterase Neg Angela/uL (Negative) 03/12/18 17:48 Urine WBC (Auto) 3 /hpf (0-5) 03/12/18 17:48 Urine RBC (Auto) 7 /hpf (0-3) H 03/12/18 17:48 Ur Squamous Epith Cells 2 /hpf (0-5) 03/12/18 17:48 Urine Bacteria Rare (<OCC) 03/12/18 17:48 Ur Random Sodium 123 mmol/L 03/14/18 14:48 Hepatitis A IgM Ab Negative (NEGATIVE) 03/13/18 07:19 Hep Bs Antigen Negative (NEGATIVE) 03/13/18 07:19 Hep B Core IgM Ab Negative (NEGATIVE) 03/13/18 07:19 Hepatitis C Antibody Reactive (Non Reactive) H 03/14/18 13:40 Hep C Ab Signal/Cutoff 34.7 (<1.0) H 03/14/18 13:40 HCV RNA Qual (TMA) Detected H 03/13/18 17:04 Influenza Typ A,B (EIA) Negative for flu a/b (NEGATIVE) 03/12/18 16:47 - Hospital Course Hospital Course: HPI: Patient is a 83 year old [place] female with past medical history of hypertension, diabetes mellitus who presents due to confusion/altered mental status. Patient states that day prior to admission she checked her blood sugar and it was 560. She states that today she was not feeling well. When questioned, she stated that she just felt confused and not well and so called 911 and was brought to hospital via ambulance. She denies any symptoms other than confusion mild headache. On labwork, patient found to have elevated ammonia - she denies current alcohol use, stating that she used to drink when she was young, and denies any history of hepatitis or drug use. Accurate history difficult to obtain as patient does appear to have altered mental status. The following is a summary of hospital course. For full detail, please refer to EMR: Hepatic Cirrhosis with Ascites History of hepatic encephalopathy -Ammonia level downtrending; 68-->22 (03/13/18) -AST/ALT: 94/47 (03/16) -ALP 185 (03/16) -CT head (03/12): Nonspecific white matter changes and chronic appearing lacunar type infarct. See full report. -Abdominal U/S: Nodular hepatic contour. Echogenic liver may be sen in the setting of hepatic parenchymal dz or fatty infiltration. Correlate clinically for cirrhosis. Cholecystectomy. Splenomegaly. Moderate abdominal ascites. -CT abdomen/pelvis (01/2018): Hepatic cirrhosis. Splenomegaly. Ascites. Cholecystectomy. Dilated common bile duct without associated intrahepatic biliary dilatation. Uncertain significance. Correlate with laboratory evaluation for any evidence of biliary obstruction. Mural thickening of the proximal duodenum, nonspecific. Mesenteric edema, nonspecific. Minor findings as above. (from prior ED visit noting hepatic cirrhosis) -GI recs (Dr. Cho) appreciated -Renal function has deteriorated, eGFR 43, down from 60 on 03/13/18 -Will encourage oral fluids -Recommend paracentesis -IR consulted (Dr. Moreno) for paracentesis -patient initially scheduled for paracentesis 03/15 but refused procedure -patient now more amenable to procedure but schedule today is full -may follow-up for outpatient paracentesis, per Dr. Wood and Dr. Cho -patient will be called with appointment scheduled Hepatitis C antibody Reactive -Hep AB with reflex negative -HCV JUANCARLOS positive -GI recs (Dr. Cho) appreciated -fibrosis score will need to be checked as outpatient -recommend outpatient follow-up -Abdominal U/S: Nodular hepatic contour. Echogenic liver may be sen in the setting of hepatic parenchymal dz or fatty infiltration. Correlate clinically for cirrhosis. Cholecystectomy. Splenomegaly. Moderate abdominal ascites. Chest X-ray Infiltrate -CXR (03/12): Moderate pulmonary congestion and suspected infiltrate within upper lobes -CT chest (03/13): No focal consolidation seen (see full report). Mild pulmonary venous congestion. 2 mm subpleural nodule. nodular hepatic contour, abdominal ascites. cardiomegaly. -Pt not on IV abx -no clinical symptoms of pneumonia, CT chest shows no infiltrate Diabetes Mellitus -HbA1C: 8.3 -home metformin held -ISS -Accuchecks ACHS -Hypoglycemic protocol -lipid panel wnl Essential Hypertension -Losartan 100 mg PO daily -Norvasc 5 mg PO daily -Aldactone 50 mg PO daily -Metoprolol 200 mg PO daily Hx of Hypothyroidism -Elevated TSH, normal Free T4 -Levothyroxine 125mcg daily Bilateral Pedal Edema -etiology unknown, denies pmhx of CHF -b/l venous dopplers negative -ECHO (03/15): LV normal size, EF 60-65%. LA moderately dilated, mitral annular calcification moderate-severe. Mild tricuspid regurgitation. No pulmonary HTN noted. No pericardial effusion -Home lasix 40 mg PO daily restarted Prophylaxis, Diet, Disposition -DVT ppx: scds CI 2/2 LE edema, medication CI 2/2 thrombocytopenia -Diet: HHD Disposition: Patient is medically stable for discharge to home, as per Dr. Wood. Patient is instructed to take all home medications as prescribed. Patient has been given scripts for Lasix 40 mg PO one tablet daily and Aldactone 50 mg PO one tablet daily. Please take as indicated in order to help alleviate abdominal fluid buildup. Please follow up with your primary care provider (Dr. Meza) no later than Thursday for continued monitoring and diuretic adjustment as needed. Please also follow up with gastroenterology (Dr. Cho) within 1 week of discharge for hepatic cirrhosis and hepatitis C workup. Patient is instructed to follow-up outpatient for paracentesis procedure, which was explained to her. Paperwork has been faxed for outpatient scheduling. Patient should receive a call directly with confirmed appointment date and time. If symptoms worsen or recur, please return to ED immediately. Thank you. - Date & Time of H&P Date of H&P: 03/17/18 Time of H&P: 16:09 Discharge Exam - Head Exam Head Exam: ATRAUMATIC, NORMAL INSPECTION, NORMOCEPHALIC - Eye Exam Eye Exam: EOMI, Normal appearance Pupil Exam: NORMAL ACCOMODATION - ENT Exam ENT Exam: Mucous Membranes Moist, Normal Exam - Neck Exam Neck exam: Full Rom, Normal Inspection - Respiratory Exam Respiratory Exam: Clear to PA & Lateral, NORMAL BREATHING PATTERN, UNREMARKABLE. absent: Accessory Muscle Use, Rales, Rhonchi, Wheezes, Respiratory Distress, Stridor - Cardiovascular Exam Cardiovascular Exam: REGULAR RHYTHM, +S1, +S2 - GI/Abdominal Exam GI & Abdominal Exam: Distended, Normal Bowel Sounds, Soft, Unremarkable. absent: Firm, Guarding, Rebound, Rigid, Tenderness Additional comments: positive fluid wave Hess's sign: negative - Extremities Exam Extremities exam: full ROM, normal capillary refill, normal inspection, pedal pulses present - Back Exam Back exam: NORMAL INSPECTION - Neurological Exam Neurological exam: Alert, CN II-XII Intact, Normal Gait, Oriented x3 - Psychiatric Exam Psychiatric exam: Normal Affect, Normal Mood - Skin Skin Exam: Dry, Intact, Normal Color, Warm Discharge Plan - Discharge Medications Prescriptions: amLODIPine [Norvasc] 1 tab PO DAILY #30 tab Furosemide [Lasix] 40 mg PO DAILY #30 tab Metoprolol Succinate 200 mg PO DAILY #30 tab.er.24h Spironolactone [Aldactone] 50 mg PO DAILY #30 tab - Follow Up Plan Condition: FAIR Disposition: HOME/ ROUTINE Instructions: Pneumonia, Adult (DC), Fluid in the Belly (Ascites) (DC), Amlodipine, Furosemide, Metoprolol, Spironolactone Additional Instructions: Patient is medically stable for discharge to home, as per Dr. Wood. Patient is instructed to take all home medications as prescribed. Patient has been given scripts for Lasix 40 mg PO one tablet daily and Aldactone 50 mg PO one tablet daily. Please take as indicated in order to help alleviate abdominal fluid buildup. Please follow up with your primary care provider (Dr. Meza) no later than Thursday for continued monitoring and diuretic adjustment as needed. Please also follow up with gastroenterology (Dr. Cho) within 1 week of discharge for hepatic cirrhosis and hepatitis C workup. Patient is instructed to follow-up outpatient for paracentesis procedure, which was explained to her. Paperwork has been faxed for outpatient scheduling. Patient should receive a call directly with confirmed appointment date and time. If symptoms worsen or recur, please return to ED immediately. Thank you. Referrals: Grey Meza MD [Staff Provider] - Nir Cho MD [Staff Provider] -
[2018-03-17 16:33] VITALS: BP 145/79; PULSE 87; TEMP 97.6
== END 2018-03-17 18:37 | disposition home or self-care (01) | DRG 442 ==
LOC: C.ER 15:27 → C.3T 20:40
PROVIDERS: ADMIT Hospitalist; ATTEND Hospitalist
DX: B19.20 Unspecified viral hepatitis C without hepatic coma (principal); R18.8 Other ascites; E03.9 Hypothyroidism, unspecified; E11.9 Type 2 diabetes mellitus without complications; I11.9 Hypertensive heart disease without heart failure; I51.7 Cardiomegaly; K21.9 Gastro-esophageal reflux disease without esophagitis; K59.00 Constipation, unspecified; K74.60 Unspecified cirrhosis of liver; Z79.84 Long term (current) use of oral hypoglycemic drugs; Z91.19 Patient's noncompliance with other medical treatment and regimen; D69.6 Thrombocytopenia, unspecified

== ENCOUNTER 2018-04-19 16:42 | Inpatient (IN) | payer MEDICARE ==
[2018-04-19] MEDS ORDERED: Sodium Chloride 0.9% 500 ML IV ONE ×3 (17:33→19:18)
--- NOTE | 2018-04-19 18:13 | C.PDOC ---
History Of Present Illness 83 y/o female w/PMhx of diabetes, brought to ER by ambulance complaining of "not feeling well." Patient states that her blood sugar levels have been "high" recently. Patient reports that she is unsure about what her usual blood sugar levels are at home; but states she is compliant with her diabetes medications. She also states that she occasionally has upper abdominal pain. Patient denies fever,chills, runny nose, sore throat, CP, SOB, plapitations, nausea, vomiting, and diarrhea. Time Seen by Provider: 04/19/18 17:11 Chief Complaint (Nursing): High Blood Sugar History Per: Patient History/Exam Limitations: no limitations Current Symptoms Are (Timing): Still Present Severity: Mild Current Diabetic Medications: Oral Medication Past Medical History Reviewed: Historical Data, Nursing Documentation, Vital Signs Vital Signs: Last Vital Signs Temp 98.2 F 04/19/18 17:00 Pulse 98 H 04/19/18 17:00 Resp 18 04/19/18 17:00 BP 125/72 04/19/18 17:00 Pulse Ox 98 04/19/18 17:00 - Medical History PMH: Diabetes, HTN, Hypothyroidism Surgical History: No Surg Hx Family History: States: No Known Family Hx - Social History Hx Alcohol Use: No Hx Substance Use: No - Immunization History Hx Tetanus Toxoid Vaccination: No Hx Influenza Vaccination: Yes Hx Pneumococcal Vaccination: Yes Review Of Systems Constitutional: Negative for: Fever, Chills ENT: Negative for: Nose Discharge Cardiovascular: Negative for: Chest Pain, Palpitations Respiratory: Negative for: Cough Gastrointestinal: Positive for: Abdominal Pain (intermittent). Negative for: Nausea, Vomiting, Diarrhea Genitourinary: Negative for: Dysuria, Hematuria Skin: Negative for: Rash Physical Exam - Physical Exam Appears: Well, Non-toxic, No Acute Distress Skin: Normal Color, Warm, Dry, No Rash Head: Normacephalic Eye(s): right: Normal Inspection Oral Mucosa: Moist Neck: Supple Cardiovascular: Rhythm Regular Respiratory: Normal Breath Sounds, No Rales, No Rhonchi, No Wheezing Gastrointestinal/Abdominal: Bowel Sounds, Soft, Tenderness (mild epigastric tenderness, obese ), No Guarding, No Rebound, Other ((-) Hess's) Back: Normal Inspection, No CVA Tenderness Neurological/Psych: Oriented x3 ED Course And Treatment - Laboratory Results Result Diagrams: 02/11/19 18:20 ECG: Interpreted By Me, Viewed By Me ECG Rhythm: Sinus Rhythm ECG Interpretation: Abnormal Interpretation Of ECG: NSR 95bpm, with left axis deviation, T wave inversions in III, aVF, and V3, and no acute ST changes Rate From EC O2 Sat by Pulse Oximetry: 98 (RA) Pulse Ox Interpretation: Normal - Radiology CXR: Interpreted by Me, Viewed By Me CXR Interpretation: Yes: No Acute Disease. No: Infiltrates Progress Note: Blood work, UA, ECG, and CXR ordered. Patient given IV NS bolus, IV insulin. Disposition - Disposition Disposition Time: 19:10 Condition: STABLE Forms: [employer] (Mongolian) - Clinical Impression Clinical Impression: Hyperglycemia, Epigastric abdominal pain - Scribe Statement The provider has reviewed the documentation as recorded by the Radhaibe Mis Kitchen Provider Attestation: All medical record entries made by the Scribe were at my direction and personally dictated by me. I have reviewed the chart and agree that the record accurately reflects my personal performance of the history, physical exam, medical decision making, and the department course for this patient. I have also personally directed, reviewed, and agree with the discharge instructions and disposition. Physician Patient Turnover Patient Signed Over To: Briana Benavidez Handoff Comments: pending blood work, UA
--- NOTE | 2018-04-19 18:19 | C.PDOC ---
Time Seen by Provider: 04/19/18 17:11 Chief Complaint (Nursing): High Blood Sugar Past Medical History Vital Signs: Last Vital Signs Temp 98.2 F 04/19/18 17:00 Pulse 98 H 04/19/18 17:00 Resp 18 04/19/18 17:00 BP 125/72 04/19/18 17:00 Pulse Ox 98 04/19/18 17:00 - Medical History PMH: Diabetes, HTN, Hypothyroidism Family History: States: Unknown Family Hx - Social History Hx Alcohol Use: No Hx Substance Use: No - Immunization History Hx Tetanus Toxoid Vaccination: No Hx Influenza Vaccination: Yes Hx Pneumococcal Vaccination: Yes ED Course And Treatment O2 Sat by Pulse Oximetry: 98 Disposition - Disposition
[2018-04-19 18:26] LABS: BASO % 0.5 % (0.0-2.0); EOS % 0.9 % (0.0-4.0); HEMOGLOBIN 12.8 g/dL (11.0-16.0); LYMPH # 1.3 K/uL (1.0-4.3); LYMPH % 26.4 % (20.0-40.0); MEAN CELL VOLUME 97.6 fL (81.0-99.0); MEAN CORPUSCULAR HEMOGLOBIN 32.3 pg (27.0-31.0); MEAN CORPUSCULAR HGB CONC 33.1 g/dL (33.0-37.0); MEAN PLATELET VOLUME 11.4 fL (7.2-11.7); MONO # 0.4 K/uL (0.0-0.8); MONO % 8.5 % (0.0-10.0); NEUT # 3.2 K/uL (1.8-7.0); NEUT % 63.7 % (50.0-75.0); NRBC % 0.1 % (0.0-2.0); RBC 3.98 Mil/uL (3.80-5.20); RED CELL DISTRIBUTION WIDTH 14.5 % (11.5-14.5)
[2018-04-19] MEDS ORDERED: (Novolin R) Insulin Human Regular 100 units/ml vial IVP ONE (18:47)
[2018-04-19 18:55] LABS: ALB/GLOB RATIO 0.7 (1.0-2.1); ALBUMIN 3.8 g/dL (3.5-5.0); CALCIUM 9.5 mg/dl (8.6-10.4)
[2018-04-19] MEDS ORDERED: (Novolin R) Insulin Human Regular 100 units/ml vial ONE ×2 (19:17→20:49)
[2018-04-19 19:41] LABS: VENOUS BLOOD GAS BASE EXCESS -3.1 mmol/L (0.0-2.0); VENOUS BLOOD GAS PCO2 39 mmHg (40-60); VENOUS BLOOD GAS PO2 43 mm/Hg (30-55); VENOUS BLOOD PH 7.36 (7.32-7.43)
[2018-04-19] MEDS ORDERED: Sodium Chloride 0.9% 1,000 ML IV ONE (19:43)
[2018-04-19] MEDS ORDERED: (Novolin R) Insulin Human Regular 100 units/ml vial IVP STA (20:06)
[2018-04-19 20:17] LABS: SQUAMOUS EPITHIAL 1 /hpf (0-5); URINE BILIRUBIN NEGATIVE (NEGATIVE); URINE BLOOD NEGATIVE (NEGATIVE); URINE CLARITY Hazy (Clear); URINE COLOR Colorless (YELLOW); URINE GLUCOSE (UA) 3+ mg/dL (Normal); URINE LEUKOCYTE ESTERASE NEG Leu/uL (Negative); URINE PROTEIN NEGATIVE (NEGATIVE); URINE UROBILINOGEN NORMAL mg/dL (0.2-1.0)
[2018-04-19] MEDS ORDERED: Sodium Chloride 0.9% 1,000 ML ONE (20:49)
[2018-04-19] MEDS ORDERED: Glucagon Recombinant 1 mg Inj IM PRN (22:27)
[2018-04-19] MEDS ORDERED: Dextrose 50% SYRINGE Inj (50 ml) IV PRN (22:27)
[2018-04-19] MEDS ORDERED: (Novolin R) Insulin Human Regular 100 units/ml vial SC ONE (22:36)
[2018-04-19] MEDS: Sodium Chloride 0.9% 1,000 ML IV SCH (22:44)
[2018-04-20] MEDS: Levothyroxine 125 MCG TAB PO SCH (05:37)
[2018-04-20] MEDS ORDERED: (Novolin R) Insulin Human Regular 100 units/ml vial SC SCH ×2 (07:30→11:30)
--- NOTE | 2018-04-20 07:58 | RAD ---
Date of service: 04/19/2018 PROCEDURE: CHEST RADIOGRAPH, 1 VIEW HISTORY: EPIGASTRIC PAIN COMPARISON: 03/12/2018 FINDINGS: LUNGS: No consolidation. Shallow lung volumes. Left mid to upper lung zone discoid atelectasis and/or scarring-similar PLEURA: No pneumothorax or pleural fluid seen. CARDIOVASCULAR: There is presence of aortic atherosclerotic calcification on x-ray. Cardiomegaly-similar Mild-moderate pulmonary venous congestion-similar OSSEOUS STRUCTURES: No significant abnormalities. VISUALIZED UPPER ABDOMEN: Normal. OTHER FINDINGS: No subdiaphragmatic free air appreciated IMPRESSION: No interval pathology noted. Shallow lung volumes, cardiomegaly, atherosclerotic vascular disease and pulmonary venous congestion-similar. Left mid to upper lung zone discoid atelectasis and/or scarring-similar
--- NOTE | 2018-04-20 09:27 | CP.PCM.CON ---
History of Present Illness - History of Present Illness History of Present Illness: This is an 83 year old woman with hepatitis Cwho is known to me from the previous admission 03/12/2018. Patient presented to the ER 03/12/2018 with weakness, nausea, neck pain and confusion. Finger stick on the day prior to admission was 500. On evaluation in the ER, VS were stable. The PT was near normal at 14.1. The liver enzymes were elevated: AST 95, ALT 53, ALKP 152. The ammonia level was also elevated at 68. Hepatitis C JUANCARLOS was positive, CT scan of the chest showed ascites and nodular liver contour. Sonogram of the abdomen showed nodular hepatic contour, increased echogenicity of the liver, S/P cholecystectomy, CBD 9 mm, splenomegaly, moderate abdominal ascites. Subsequently, the hepatits C RNA was positive. The ammonia level was 68 on admission and improved to 22. She refused paracentesis and was discharged on 03/17/2018. Patient was brought to the ER on 04/19/2018 complaining of not feeling well, high finger stick readings for sugar, and upper abdominal pain. Glucose on admission was 668, and the ammonia level was 79, but the repeat two hours later was 33. The AST was 118, ALT 70, ALKP 291. PT was not done. At present, patient denies having abdominal pain, nausea, vomiting, difficulty swallowing, heartburn, diarrhea, constipation, and rectal bleeding. Review of Systems - Review of Systems All systems: reviewed and no additional remarkable complaints except - Constitutional Constitutional: absent: Chills, Fever - EENT Nose/Mouth/Throat: absent: Nasal Discharge - Cardiovascular Cardiovascular: absent: Chest Pain, Palpitations - Respiratory Respiratory: absent: Cough - Gastrointestinal Gastrointestinal: Abdominal Pain. absent: Constipation, Diarrhea, Dysphagia, Heartburn, Hematochezia, Nausea, Vomiting - Genitourinary Genitourinary: absent: Dysuria, Hematuria - Integumentary Integumentary: absent: Rash Past Patient History - Infectious Disease Hx of Infectious Diseases: None - Past Medical History & Family History Past Medical History?: Yes - Past Social History Smoking Status: Never Smoked - CARDIAC Hx Cardiac Disorders: Yes Hx Hypertension: Yes - PULMONARY Hx Respiratory Disorders: No - NEUROLOGICAL Hx Neurological Disorder: Yes Hx Vertigo: Yes (does not take meclizine prescribed) - HEENT Hx HEENT Problems: No - RENAL Hx Chronic Kidney Disease: No - ENDOCRINE/METABOLIC Hx Endocrine Disorders: Yes Hx Hypothyroidism: Yes - HEMATOLOGICAL/ONCOLOGICAL Hx Blood Disorders: No - INTEGUMENTARY Hx Dermatological Problems: No - MUSCULOSKELETAL/RHEUMATOLOGICAL Hx Falls: No - GASTROINTESTINAL Hx Gastrointestinal Disorders: Yes Hx Gastroesophageal Reflux: Yes - GENITOURINARY/GYNECOLOGICAL Hx Genitourinary Disorders: No - PSYCHIATRIC Hx Substance Use: No - SURGICAL HISTORY Hx Surgeries: No - ANESTHESIA Hx Anesthesia: No Meds Allergies/Adverse Reactions: Allergies Allergy/AdvReac Type Severity Reaction Status Date / Time No Known Allergies Allergy Verified 01/11/18 14:34 - Medications Medications: Current Medications Amlodipine Besylate (Norvasc) 10 mg PO DAILY [facility] Dextrose (Dextrose 50% Inj) 0 ml IV STAT PRN; Protocol PRN Reason: Hypoglycemia Protocol Dextrose (Glutose 15) 0 gm PO ONCE PRN; Protocol PRN Reason: Hypoglycemia Protocol Furosemide (Lasix) 40 mg PO DAILY [facility] Glimepiride (Amaryl) 4 mg PO DAILY [facility] Glucagon (Glucagen Diagnostic Kit) 0 mg IM STAT PRN; Protocol PRN Reason: Hypoglycemia Protocol Heparin Sodium (Porcine) (Heparin) 5,000 units SC Q12 [facility] Dextrose (Dextrose 5% In Water 1000 Ml) 1,000 mls @ 0 mls/hr IV .Q0M PRN; Protocol PRN Reason: Hypoglycemia Protocol Sodium Chloride (Sodium Chloride 0.9%) 1,000 mls @ 100 mls/hr IV .Q10H [facility] Last Admin: 04/19/18 22:44 Dose: 100 mls/hr Insulin Human Regular (Novolin R) 0 unit SC ACHS [facility]; Protocol Last Admin: 04/20/18 08:38 Dose: 8 units Levothyroxine Sodium (Synthroid) 125 mcg PO DAILY@0630 [facility] Last Admin: 04/20/18 05:37 Dose: 125 mcg Losartan Potassium (Cozaar) 50 mg PO DAILY [facility] Meclizine HCl (Antivert) 25 mg PO Q6 PRN PRN Reason: Dizziness Metformin HCl (Glucophage) 1,000 mg PO BID [facility] Metoprolol Succinate (Toprol Xl) 200 mg PO DAILY [facility] Pantoprazole Sodium (Protonix Ec Tab) 40 mg PO DAILY [facility] Physical Exam - Head Exam Head Exam: ATRAUMATIC, NORMOCEPHALIC - Eye Exam Eye Exam: EOMI, PERRL - Neck Exam Neck exam: Negative for: Lymphadenopathy, Thyromegaly - Respiratory Exam Respiratory Exam: NORMAL BREATHING PATTERN. absent: Rales, Rhonchi, Wheezes - Cardiovascular Exam Cardiovascular Exam: REGULAR RHYTHM, +S1, +S2. absent: Gallop, Rubs, Systolic Murmur - GI/Abdominal Exam GI & Abdominal Exam: Normal Bowel Sounds, Soft. absent: Mass, Organomegaly, Tenderness - Rectal Exam Rectal Exam: Deferred - Extremities Exam Additional comments: Stasis dermatitis Results - Vital Signs Recent Vital Signs: Last Vital Signs Temp 97.9 F 04/20/18 07:00 Pulse 76 04/20/18 07:50 Resp 20 04/20/18 07:00 BP 132/73 04/20/18 07:00 Pulse Ox 100 04/20/18 07:00 - Labs Result Diagrams: 04/19/18 17:32 04/19/18 18:20 Labs: Laboratory Results - last 24 hr 04/19/18 04/19/18 04/19/18 16:59 17:32 18:20 WBC 5.0 RBC 3.98 Hgb 12.8 Hct 38.9 MCV 97.6 D MCH 32.3 H MCHC 33.1 RDW 14.5 Plt Count 63 L MPV 11.4 Neut % (Auto) 63.7 Lymph % (Auto) 26.4 [place] % (Auto) 8.5 Eos % (Auto) 0.9 Baso % (Auto) 0.5 Neut # (Auto) 3.2 Lymph # (Auto) 1.3 [place] # (Auto) 0.4 Eos # (Auto) 0.0 Baso # (Auto) 0.0 pO2 VBG pH VBG pCO2 VBG HCO3 VBG Total CO2 VBG O2 Sat (Calc) VBG Base Excess VBG Potassium Glucose Lactate Crit Value Called To Crit Value Called By Crit Value Read Back Blood Gas Notified Time Sodium 130 L Potassium 4.4 Chloride 95 L Carbon Dioxide 20 L Anion Gap 19 BUN 33 H Creatinine 1.1 Est GFR ( Amer) 58 Est GFR (Non-Af Amer) 48 POC Glucose (mg/dL) > 500 H* Random Glucose 663 H* D Lactic Acid Calcium 9.5 Total Bilirubin 1.4 H AST 118 H ALT 70 H D Alkaline Phosphatase 291 H D Ammonia Total Protein 9.4 H Albumin 3.8 Globulin 5.7 H Albumin/Globulin Ratio 0.7 L Lipase 303 H Venous Blood Potassium Urine Color Urine Clarity Urine pH Ur Specific [place] Urine Protein Urine Glucose (UA) Urine Ketones Urine Blood Urine Nitrate Urine Bilirubin Urine Urobilinogen Ur Leukocyte Esterase Urine WBC (Auto) Ur Squamous Epith Cells 04/19/18 04/19/18 04/19/18 18:20 18:27 19:32 WBC RBC Hgb Hct MCV MCH MCHC RDW Plt Count MPV Neut % (Auto) Lymph % (Auto) [place] % (Auto) Eos % (Auto) Baso % (Auto) Neut # (Auto) Lymph # (Auto) [place] # (Auto) Eos # (Auto) Baso # (Auto) pO2 VBG pH VBG pCO2 VBG HCO3 VBG Total CO2 VBG O2 Sat (Calc) VBG Base Excess VBG Potassium Glucose Lactate Crit Value Called To Crit Value Called By Crit Value Read Back Blood Gas Notified Time Sodium Potassium Chloride Carbon Dioxide Anion Gap BUN Creatinine Est GFR ( Amer) Est GFR (Non-Af Amer) POC Glucose (mg/dL) > 500 H* Random Glucose Lactic Acid Calcium Total Bilirubin AST ALT Alkaline Phosphatase Ammonia 79 H D Total Protein Albumin Globulin Albumin/Globulin Ratio Lipase Venous Blood Potassium Urine Color Colorless Urine Clarity Hazy Urine pH 5.0 Ur Specific [place] 1.007 Urine Protein Negative Urine Glucose (UA) 3+ H Urine Ketones Negative Urine Blood Negative Urine Nitrate Negative Urine Bilirubin Negative Urine Urobilinogen Normal Ur Leukocyte Esterase Neg Urine WBC (Auto) 1 Ur Squamous Epith Cells 1 04/19/18 04/19/18 04/19/18 19:36 19:57 20:11 WBC RBC Hgb Hct MCV MCH MCHC RDW Plt Count MPV Neut % (Auto) Lymph % (Auto) [place] % (Auto) Eos % (Auto) Baso % (Auto) Neut # (Auto) Lymph # (Auto) [place] # (Auto) Eos # (Auto) Baso # (Auto) pO2 43 VBG pH 7.36 VBG pCO2 39 L VBG HCO3 21.9 VBG Total CO2 23.2 VBG O2 Sat (Calc) 80.5 H VBG Base Excess -3.1 L VBG Potassium 4.0 Glucose 585 H* D Lactate 3.2 H Crit Value Called To Rosa Isela ashby rn Crit Value Called By Koby Crit Value Read Back Y Blood Gas Notified Time 1940 Sodium 132.0 Potassium Chloride 95.0 L Carbon Dioxide Anion Gap BUN Creatinine Est GFR ( Amer) Est GFR (Non-Af Amer) POC Glucose (mg/dL) > 500 H* Random Glucose Lactic Acid Calcium Total Bilirubin AST ALT Alkaline Phosphatase Ammonia 33 D Total Protein Albumin Globulin Albumin/Globulin Ratio Lipase Venous Blood Potassium 4.0 Urine Color Urine Clarity Urine pH Ur Specific [place] Urine Protein Urine Glucose (UA) Urine Ketones Urine Blood Urine Nitrate Urine Bilirubin Urine Urobilinogen Ur Leukocyte Esterase Urine WBC (Auto) Ur Squamous Epith Cells 04/19/18 04/20/18 04/20/18 21:05 03:10 06:32 WBC RBC Hgb Hct MCV MCH MCHC RDW Plt Count MPV Neut % (Auto) Lymph % (Auto) [place] % (Auto) Eos % (Auto) Baso % (Auto) Neut # (Auto) Lymph # (Auto) [place] # (Auto) Eos # (Auto) Baso # (Auto) pO2 VBG pH VBG pCO2 VBG HCO3 VBG Total CO2 VBG O2 Sat (Calc) VBG Base Excess VBG Potassium Glucose Lactate Crit Value Called To Crit Value Called By Crit Value Read Back Blood Gas Notified Time Sodium Potassium Chloride Carbon Dioxide Anion Gap BUN Creatinine Est GFR ( Amer) Est GFR (Non-Af Amer) POC Glucose (mg/dL) > 500 H* 367 H 327 H Random Glucose Lactic Acid Calcium Total Bilirubin AST ALT Alkaline Phosphatase Ammonia Total Protein Albumin Globulin Albumin/Globulin Ratio Lipase Venous Blood Potassium Urine Color Urine Clarity Urine pH Ur Specific [place] Urine Protein Urine Glucose (UA) Urine Ketones Urine Blood Urine Nitrate Urine Bilirubin Urine Urobilinogen Ur Leukocyte Esterase Urine WBC (Auto) Ur Squamous Epith Cells 04/20/18 07:41 WBC RBC Hgb Hct MCV MCH MCHC RDW Plt Count MPV Neut % (Auto) Lymph % (Auto) [place] % (Auto) Eos % (Auto) Baso % (Auto) Neut # (Auto) Lymph # (Auto) [place] # (Auto) Eos # (Auto) Baso # (Auto) pO2 VBG pH VBG pCO2 VBG HCO3 VBG Total CO2 VBG O2 Sat (Calc) VBG Base Excess VBG Potassium Glucose Lactate Crit Value Called To Crit Value Called By Crit Value Read Back Blood Gas Notified Time Sodium Potassium Chloride Carbon Dioxide Anion Gap BUN Creatinine Est GFR ( Amer) Est GFR (Non-Af Amer) POC Glucose (mg/dL) Random Glucose Lactic Acid 1.4 Calcium Total Bilirubin AST ALT Alkaline Phosphatase Ammonia Total Protein Albumin Globulin Albumin/Globulin Ratio Lipase Venous Blood Potassium Urine Color Urine Clarity Urine pH Ur Specific [place] Urine Protein Urine Glucose (UA) Urine Ketones Urine Blood Urine Nitrate Urine Bilirubin Urine Urobilinogen Ur Leukocyte Esterase Urine WBC (Auto) Ur Squamous Epith Cells Assessment & Plan (1) Hepatitis C Assessment and Plan: Patient has documented, hepatitis C, cirrhosis and ascites. Tests of hepatic synthetic function, such as albumin and PT, have been normal. Paracentesis was recommended during the last admission but was refused. It can be done during this admission or as an outpatient. Status: Acute
[2018-04-20] MEDS: Metoprolol Succinate 100 mg XL Tab PO SCH (10:27)
[2018-04-20] MEDS: Sodium Chloride 0.9% 1,000 ML IV SCH ×3 (10:27→22:03)
[2018-04-20] MEDS: Pantoprazole 40 mg EC Tab PO SCH (10:28)
[2018-04-20 11:05] LABS: BASO % 0.6 % (0.0-2.0); EOS % 1.2 % (0.0-4.0); HEMOGLOBIN 12.1 g/dL (11.0-16.0); LYMPH % 26.6 % (20.0-40.0); MEAN CORPUSCULAR HEMOGLOBIN 32.7 pg (27.0-31.0); MEAN CORPUSCULAR HGB CONC 34.4 g/dL (33.0-37.0); MEAN PLATELET VOLUME 10.6 fL (7.2-11.7); MONO # 0.3 K/uL (0.0-0.8); MONO % 8.5 % (0.0-10.0); NEUT # 2.4 K/uL (1.8-7.0); NEUT % 63.1 % (50.0-75.0); NRBC % 0.1 % (0.0-2.0); RBC 3.7 Mil/uL (3.80-5.20); RED CELL DISTRIBUTION WIDTH 14.5 % (11.5-14.5); WHITE BLOOD COUNT 3.9 K/uL (4.8-10.8)
[2018-04-20 11:21] LABS: ALB/GLOB RATIO 0.7 (1.0-2.1); ALBUMIN 3.2 g/dL (3.5-5.0); ALT/SGPT 72 U/L (9-52); AST/SGOT 109 U/L (14-36); BLOOD UREA NITROGEN 26 mg/dL (7-17); CALCIUM 8.9 mg/dl (8.6-10.4); GFR NON-AFRICAN AMERICAN 60
[2018-04-20] MEDS ORDERED: (Lantus) Insulin Glargine, Recombinant SC SCH (12:00)
[2018-04-20] MEDS: (Novolin R) Insulin Human Regular 100 units/ml vial SC SCH ×4 (12:54→22:00)
[2018-04-20] MEDS: (Lantus) Insulin Glargine, Recombinant SC SCH (13:32)
[2018-04-21] MEDS: Sodium Chloride 0.9% 1,000 ML IV SCH ×2 (04:12→17:06)
[2018-04-21 05:21] LABS: SQUAMOUS EPITHIAL < 1 /hpf (0-5); URINE BILIRUBIN NEGATIVE (NEGATIVE); URINE BLOOD NEGATIVE (NEGATIVE); URINE CLARITY Clear (Clear); URINE COLOR Yellow (YELLOW); URINE GLUCOSE (UA) NORMAL (Normal); URINE LEUKOCYTE ESTERASE NEG Leu/uL (Negative); URINE PROTEIN NEGATIVE (NEGATIVE); URINE UROBILINOGEN NORMAL mg/dL (0.2-1.0)
[2018-04-21] MEDS: Levothyroxine 125 MCG TAB PO SCH (05:52)
--- NOTE | 2018-04-21 06:47 | HP ---
The patient is an 83-year-old female. CHIEF COMPLAINT: Altered mental status, weakness, nausea, and neck pain. HISTORY OF PRESENT ILLNESS: The patient is an 83-year-old female with a history of hepatitis, came to the emergency room for nausea, vomiting, neck pain, and confusion. Fingerstick was high on 03/12/2018, like 500. Liver enzymes are elevated. Ammonia level is high. Hepatitis C JUANCARLOS was positive. had ascites and nodular liver contour. Sonography of abdomen showed nodular hepatic contour. Moderate abdominal ascites. Last admission, it was determined that the patient's hepatitis C RNA was positive. Ammonia level was high on admission, then improved. The patient had paracentesis, advised discharge on 03/17/2018. Now, she came back to the emergency room with a high fever, still not feeling very well, having abdominal pain. This time, glucose on admission is 658 and ammonia level 79. The patient is seen in her room, awake and alert. Denies nausea, vomiting, or diarrhea. The patient is seen by Dr. Nir Cho. He is the patient's seed tester from the last admission. No fever. No chills. REVIEW OF SYSTEMS: The patient was seen and examined in her room on the bedside, looking comfortable. ALLERGIES: THE PATIENT IS NOT ALLERGIC WITH ANY MEDICATIONS. FAMILY HISTORY: Father and mother noncontributory. HABITS: Never smoked. No drugs. No ethanol. PAST MEDICAL HISTORY: Hypertension, vertigo, GERD, and dyspepsia. HOME MEDICATIONS: Norvasc, dextrose, Lasix, Amaryl, heparin, insulin, and levothyroxine. PHYSICAL EXAMINATION: VITAL SIGNS: Temperature 97.9, pulse 76, respiratory rate 20, blood pressure 132/73, and pulse oxymetry 100. HEENT: Head: Normocephalic, atraumatic. Eyes: PERRLA. Extraocular muscles intact. Conjunctivae clear. Nose patent. Mucous membranes moist. NECK: Supple. No carotid bruit. No JVD or thyromegaly. CHEST: Bilaterally symmetrical. HEART: S1 and S2 positive. LUNGS: Clear to auscultation. ABDOMEN: Soft. Bowel sounds present. No organomegaly. EXTREMITIES: No edema. No cyanosis. NEUROLOGIC: The patient is awake, alert. Follows simple commands. LABORATORY DATA: White blood cells 5, hemoglobin 12.8, hematocrit 38.9, platelets 63. Sodium 130, potassium 4.4, BUN 33, creatinine 1.1, glucose 653. ASSESSMENT AND PLAN: The patient is an 83-year-old lady with leukopenia, hyponatremia, hypochloremia, uncontrolled insulin-dependent diabetes mellitus. Endocrinology consult with Dr. Naa Boucher. The patient has documented hepatitis C, cirrhosis of the liver, and ascites. Paracentesis was recommended, but the patient refused at last admission. We will try to get the paracentesis this admission. Appreciated by Dr. Nir Cho's input. Chest x-ray done. Deep venous thrombosis and gastrointestinal prophylaxis given. Restarted home medications. Repeat laboratories. We will follow up. Yulia Dominguez MD [id number]
[2018-04-21 07:31] LABS: BASO % 0.5 % (0.0-2.0); EOS # 0.1 K/uL (0.0-0.7); EOS % 2.1 % (0.0-4.0); HEMOGLOBIN 11.3 g/dL (11.0-16.0); LYMPH # 1.3 K/uL (1.0-4.3); MEAN CELL VOLUME 94.3 fL (81.0-99.0); MEAN CORPUSCULAR HGB CONC 33.9 g/dL (33.0-37.0); MONO # 0.3 K/uL (0.0-0.8); MONO % 9.1 % (0.0-10.0); NEUT # 1.7 K/uL (1.8-7.0); NEUT % 50.3 % (50.0-75.0); NRBC % 0.1 % (0.0-2.0); RBC 3.52 Mil/uL (3.80-5.20); RED CELL DISTRIBUTION WIDTH 14.6 % (11.5-14.5); WHITE BLOOD COUNT 3.4 K/uL (4.8-10.8)
[2018-04-21 07:57] LABS: ALB/GLOB RATIO 0.6 (1.0-2.1); ALBUMIN 2.9 g/dL (3.5-5.0); ALT/SGPT 72 U/L (9-52); AST/SGOT 98 U/L (14-36); BLOOD UREA NITROGEN 23 mg/dL (7-17); CALCIUM 8.3 mg/dl (8.6-10.4); GFR NON-AFRICAN AMERICAN 53; HDL CHOLESTEROL 27 mg/dL (30-70)
[2018-04-21 07:58] LABS: IRON 64 ug/dL (37-170)
[2018-04-21 08:05] LABS: LDL CHOLESTEROL 40 mg/dL (0-129)
[2018-04-21 08:19] LABS: % IRON SATURATION 20 (20-55); TOTAL IRON BINDING CAPACITY 316 ug/dL (250-450)
[2018-04-21 08:37] VITALS: RESP 20
[2018-04-21 09:07] LABS: FOLATE 12.8 ng/mL
[2018-04-21] MEDS: Pantoprazole 40 mg EC Tab PO SCH (09:21)
[2018-04-21] MEDS: Metoprolol Succinate 100 mg XL Tab PO SCH (09:22)
[2018-04-21] MEDS: (Novolin R) Insulin Human Regular 100 units/ml vial SC SCH ×7 (09:26→21:30)
--- NOTE | 2018-04-21 09:46 | PCM.IRP ---
History of Present Illness - History of Present Illness History of Present Illness: Mrs. Pena was brought to IR department for paracentesis. US performed. There is no ascites. Objective - Vital Signs/Intake and Output Vital Signs (last 24 hours): Vital Signs - 24 hr 04/20/18 04/20/18 04/20/18 10:28 16:00 23:42 Temperature 97.5 F L 97.7 F Pulse Rate 54 L 55 L Respiratory 20 18 Rate Blood Pressure 137/82 111/68 95/52 L O2 Sat by Pulse 95 96 Oximetry 04/21/18 04/21/18 08:00 09:23 Temperature 97.3 F L Pulse Rate 59 L Respiratory 20 Rate Blood Pressure 123/75 123/75 O2 Sat by Pulse 97 Oximetry Intake and Output (last 12 hours): Intake & Output 04/20/18 04/21/18 04/21/18 18:59 06:59 18:59 Intake Total 1750 Balance 1750 Intake: Intake, IV Amount 1600 Right Hand 1600 Oral 150 Other: # Voids Urine, Voided 1 # Bowel Movements 0 - Medications Medications: Current Medications Acetaminophen (Tylenol 325mg Tab) 650 mg PO Q6 PRN PRN Reason: Pain, moderate (4-7) Amlodipine Besylate (Norvasc) 10 mg PO DAILY [facility] Last Admin: 04/21/18 09:23 Dose: 10 mg Dextrose (Dextrose 50% Inj) 0 ml IV STAT PRN; Protocol PRN Reason: Hypoglycemia Protocol Dextrose (Glutose 15) 0 gm PO ONCE PRN; Protocol PRN Reason: Hypoglycemia Protocol Furosemide (Lasix) 40 mg PO DAILY [facility] Last Admin: 04/21/18 09:23 Dose: 40 mg Glimepiride (Amaryl) 4 mg PO DAILY [facility] Last Admin: 04/21/18 09:22 Dose: 4 mg Glucagon (Glucagen Diagnostic Kit) 0 mg IM STAT PRN; Protocol PRN Reason: Hypoglycemia Protocol Heparin Sodium (Porcine) (Heparin) 5,000 units SC Q12 [facility] Last Admin: 04/21/18 09:21 Dose: 5,000 units Dextrose (Dextrose 5% In Water 1000 Ml) 1,000 mls @ 0 mls/hr IV .Q0M PRN; Protocol PRN Reason: Hypoglycemia Protocol Sodium Chloride (Sodium Chloride 0.9%) 1,000 mls @ 100 mls/hr IV .Q10H [facility] Last Admin: 04/21/18 04:12 Dose: Not Given Insulin Glargine (Lantus) 15 unit SC Q24H [facility] Last Admin: 04/20/18 13:32 Dose: Not Given Insulin Human Regular (Novolin R) 4 unit SC AC [facility] Last Admin: 04/21/18 09:26 Dose: 4 units Insulin Human Regular (Novolin R) 0 unit SC ACHS [facility]; Protocol Last Admin: 04/21/18 09:27 Dose: Not Given Levothyroxine Sodium (Synthroid) 125 mcg PO DAILY@0630 [facility] Last Admin: 04/21/18 05:52 Dose: 125 mcg Losartan Potassium (Cozaar) 50 mg PO DAILY [facility] Last Admin: 04/21/18 09:23 Dose: 50 mg Meclizine HCl (Antivert) 25 mg PO Q6 PRN PRN Reason: Dizziness Metformin HCl (Glucophage) 1,000 mg PO BID [facility] Last Admin: 04/21/18 09:21 Dose: 1,000 mg Metoprolol Succinate (Toprol Xl) 200 mg PO DAILY [facility] Last Admin: 04/21/18 09:22 Dose: 200 mg Pantoprazole Sodium (Protonix Ec Tab) 40 mg PO DAILY [facility] Last Admin: 04/21/18 09:21 Dose: 40 mg Rifaximin (Xifaxan) 550 mg PO BID [facility]; Protocol Last Admin: 04/21/18 09:21 Dose: 550 mg - Labs Labs (last 24 hours): Laboratory Results - last 24 hr 04/20/18 04/20/18 04/20/18 10:58 10:58 11:09 WBC 3.9 L RBC 3.70 L Hgb 12.1 Hct 35.2 MCV 95.0 D MCH 32.7 H MCHC 34.4 RDW 14.5 Plt Count 54 L MPV 10.6 Neut % (Auto) 63.1 Lymph % (Auto) 26.6 [place] % (Auto) 8.5 Eos % (Auto) 1.2 Baso % (Auto) 0.6 Neut # (Auto) 2.4 Lymph # (Auto) 1.0 [place] # (Auto) 0.3 Eos # (Auto) 0.0 Baso # (Auto) 0.0 Sodium 132 Potassium 4.1 Chloride 98 Carbon Dioxide 24 Anion Gap 14 BUN 26 H Creatinine 0.9 Est GFR ( Amer) > 60 Est GFR (Non-Af Amer) 60 POC Glucose (mg/dL) 421 H* Random Glucose 463 H* D Calcium 8.9 Phosphorus Magnesium Iron TIBC % Saturation Total Bilirubin 1.7 H AST 109 H ALT 72 H Alkaline Phosphatase 192 H D Ammonia Total Protein 8.2 Albumin 3.2 L Globulin 5.0 H Albumin/Globulin Ratio 0.7 L Triglycerides Cholesterol LDL Cholesterol Direct HDL Cholesterol Alpha Fetoprotein Vitamin B12 Folate TSH 3rd Generation Urine Color Urine Clarity Urine pH Ur Specific [place] Urine Protein Urine Glucose (UA) Urine Ketones Urine Blood Urine Nitrate Urine Bilirubin Urine Urobilinogen Ur Leukocyte Esterase Urine WBC (Auto) Ur Squamous Epith Cells Ur Random Sodium 04/20/18 04/20/18 04/21/18 16:24 21:13 02:36 WBC RBC Hgb Hct MCV MCH MCHC RDW Plt Count MPV Neut % (Auto) Lymph % (Auto) [place] % (Auto) Eos % (Auto) Baso % (Auto) Neut # (Auto) Lymph # (Auto) [place] # (Auto) Eos # (Auto) Baso # (Auto) Sodium Potassium Chloride Carbon Dioxide Anion Gap BUN Creatinine Est GFR ( Amer) Est GFR (Non-Af Amer) POC Glucose (mg/dL) 444 H* 358 H 115 H Random Glucose Calcium Phosphorus Magnesium Iron TIBC % Saturation Total Bilirubin AST ALT Alkaline Phosphatase Ammonia Total Protein Albumin Globulin Albumin/Globulin Ratio Triglycerides Cholesterol LDL Cholesterol Direct HDL Cholesterol Alpha Fetoprotein Vitamin B12 Folate TSH 3rd Generation Urine Color Urine Clarity Urine pH Ur Specific [place] Urine Protein Urine Glucose (UA) Urine Ketones Urine Blood Urine Nitrate Urine Bilirubin Urine Urobilinogen Ur Leukocyte Esterase Urine WBC (Auto) Ur Squamous Epith Cells Ur Random Sodium 04/21/18 04/21/18 04/21/18 05:15 06:05 06:18 WBC RBC Hgb Hct MCV MCH MCHC RDW Plt Count MPV Neut % (Auto) Lymph % (Auto) [place] % (Auto) Eos % (Auto) Baso % (Auto) Neut # (Auto) Lymph # (Auto) [place] # (Auto) Eos # (Auto) Baso # (Auto) Sodium Potassium Chloride Carbon Dioxide Anion Gap BUN Creatinine Est GFR ( Amer) Est GFR (Non-Af Amer) POC Glucose (mg/dL) 101 Random Glucose Calcium Phosphorus Magnesium Iron TIBC % Saturation Total Bilirubin AST ALT Alkaline Phosphatase Ammonia Total Protein Albumin Globulin Albumin/Globulin Ratio Triglycerides Cholesterol LDL Cholesterol Direct HDL Cholesterol Alpha Fetoprotein Vitamin B12 Folate TSH 3rd Generation Urine Color Yellow Urine Clarity Clear Urine pH 5.0 Ur Specific [place] 1.008 Urine Protein Negative Urine Glucose (UA) Normal Urine Ketones Negative Urine Blood Negative Urine Nitrate Negative Urine Bilirubin Negative Urine Urobilinogen Normal Ur Leukocyte Esterase Neg Urine WBC (Auto) 1 Ur Squamous Epith Cells < 1 Ur Random Sodium 54 04/21/18 04/21/18 04/21/18 07:18 07:18 07:18 WBC RBC Hgb Hct MCV MCH MCHC RDW Plt Count MPV Neut % (Auto) Lymph % (Auto) [place] % (Auto) Eos % (Auto) Baso % (Auto) Neut # (Auto) Lymph # (Auto) [place] # (Auto) Eos # (Auto) Baso # (Auto) Sodium 133 Potassium 3.6 Chloride 105 Carbon Dioxide 25 Anion Gap 7 L BUN 23 H Creatinine 1.0 Est GFR ( Amer) > 60 Est GFR (Non-Af Amer) 53 POC Glucose (mg/dL) Random Glucose 104 D Calcium 8.3 L Phosphorus 3.5 Magnesium 0.9 L* D Iron 64 TIBC 316 % Saturation 20 Total Bilirubin 1.2 AST 98 H ALT 72 H Alkaline Phosphatase 136 H D Ammonia Total Protein 7.7 Albumin 2.9 L Globulin 4.7 H Albumin/Globulin Ratio 0.6 L Triglycerides 97 Cholesterol 88 LDL Cholesterol Direct 40 HDL Cholesterol 27 L Alpha Fetoprotein 7.2 Vitamin B12 564 Folate 12.8 TSH 3rd Generation 11.50 H Urine Color Urine Clarity Urine pH Ur Specific [place] Urine Protein Urine Glucose (UA) Urine Ketones Urine Blood Urine Nitrate Urine Bilirubin Urine Urobilinogen Ur Leukocyte Esterase Urine WBC (Auto) Ur Squamous Epith Cells Ur Random Sodium 04/21/18 04/21/18 07:18 07:20 WBC 3.4 L RBC 3.52 L Hgb 11.3 Hct 33.2 L MCV 94.3 MCH 32.0 H MCHC 33.9 RDW 14.6 H Plt Count 58 L MPV 10.0 Neut % (Auto) 50.3 Lymph % (Auto) 38.0 [place] % (Auto) 9.1 Eos % (Auto) 2.1 Baso % (Auto) 0.5 Neut # (Auto) 1.7 L Lymph # (Auto) 1.3 [place] # (Auto) 0.3 Eos # (Auto) 0.1 Baso # (Auto) 0.0 Sodium Potassium Chloride Carbon Dioxide Anion Gap BUN Creatinine Est GFR ( Amer) Est GFR (Non-Af Amer) POC Glucose (mg/dL) Random Glucose Calcium Phosphorus Magnesium Iron TIBC % Saturation Total Bilirubin AST ALT Alkaline Phosphatase Ammonia 31 Total Protein Albumin Globulin Albumin/Globulin Ratio Triglycerides Cholesterol LDL Cholesterol Direct HDL Cholesterol Alpha Fetoprotein Vitamin B12 Folate TSH 3rd Generation Urine Color Urine Clarity Urine pH Ur Specific [place] Urine Protein Urine Glucose (UA) Urine Ketones Urine Blood Urine Nitrate Urine Bilirubin Urine Urobilinogen Ur Leukocyte Esterase Urine WBC (Auto) Ur Squamous Epith Cells Ur Random Sodium
[2018-04-21] MEDS: Magnesium Sulfate 1 gm in D5W 1 GM/100 ML BAG IVPB SCH ×2 (10:43→12:17)
[2018-04-21] MEDS ORDERED: Magnesium Sulfate 1 gm in D5W 1 GM/100 ML BAG IVPB SCH (11:00)
--- NOTE | 2018-04-21 11:21 | US ---
Date of Procedure: 04/21/2018 PROCEDURE: Limited abdominal ultrasound HISTORY: Ascites, abdominal distention TECHNIQUE: Following informed consent , the patient was placed supine on the stretcher. Limited abdominal ultrasound performed. Abdominal ultrasound showed no ascites. IMPRESSION: Ultrasound of the abdomen show no ascites. No paracentesis was performed.
[2018-04-21] MEDS: (Lantus) Insulin Glargine, Recombinant SC SCH (11:45)
--- NOTE | 2018-04-21 13:38 | CP.PCM.PN ---
Subjective - Date & Time of Evaluation Date of Evaluation: 04/21/18 Time of Evaluation: 13:35 - Subjective Subjective: Patient denies having abdominal pain, nausea, vomiting. She has not had a bowel movement so far today. Repeat ultrasound showed no ascites, so paracentesis was canceled. Objective - Vital Signs/Intake and Output Vital Signs (last 24 hours): Temp Pulse Resp BP Pulse Ox 97.3 F L 59 L 20 123/75 97 04/21/18 08:00 04/21/18 08:00 04/21/18 08:00 04/21/18 09:23 04/21/18 08:00 Intake and Output: 04/21/18 04/21/18 06:59 18:59 Intake Total 1750 Balance 1750 - Medications Medications: Current Medications Acetaminophen (Tylenol 325mg Tab) 650 mg PO Q6 PRN PRN Reason: Pain, moderate (4-7) Amlodipine Besylate (Norvasc) 10 mg PO DAILY [facility] Last Admin: 04/21/18 09:23 Dose: 10 mg Dextrose (Dextrose 50% Inj) 0 ml IV STAT PRN; Protocol PRN Reason: Hypoglycemia Protocol Dextrose (Glutose 15) 0 gm PO ONCE PRN; Protocol PRN Reason: Hypoglycemia Protocol Furosemide (Lasix) 40 mg PO DAILY [facility] Last Admin: 04/21/18 09:23 Dose: 40 mg Glimepiride (Amaryl) 4 mg PO DAILY [facility] Last Admin: 04/21/18 09:22 Dose: 4 mg Glucagon (Glucagen Diagnostic Kit) 0 mg IM STAT PRN; Protocol PRN Reason: Hypoglycemia Protocol Heparin Sodium (Porcine) (Heparin) 5,000 units SC Q12 [facility] Last Admin: 04/21/18 09:21 Dose: 5,000 units Dextrose (Dextrose 5% In Water 1000 Ml) 1,000 mls @ 0 mls/hr IV .Q0M PRN; Protocol PRN Reason: Hypoglycemia Protocol Sodium Chloride (Sodium Chloride 0.9%) 1,000 mls @ 100 mls/hr IV .Q10H [facility] Last Admin: 04/21/18 04:12 Dose: Not Given Insulin Glargine (Lantus) 15 unit SC Q24H [facility] Last Admin: 04/21/18 11:45 Dose: 15 unit Insulin Human Regular (Novolin R) 4 unit SC AC [facility] Last Admin: 04/21/18 11:40 Dose: 4 units Insulin Human Regular (Novolin R) 0 unit SC ACHS [facility]; Protocol Last Admin: 04/21/18 11:41 Dose: 3 units Levothyroxine Sodium (Synthroid) 125 mcg PO DAILY@0630 [facility] Last Admin: 04/21/18 05:52 Dose: 125 mcg Losartan Potassium (Cozaar) 50 mg PO DAILY [facility] Last Admin: 04/21/18 09:23 Dose: 50 mg Meclizine HCl (Antivert) 25 mg PO Q6 PRN PRN Reason: Dizziness Metformin HCl (Glucophage) 1,000 mg PO BID [facility] Last Admin: 04/21/18 09:21 Dose: 1,000 mg Metoprolol Succinate (Toprol Xl) 200 mg PO DAILY [facility] Last Admin: 04/21/18 09:22 Dose: 200 mg Pantoprazole Sodium (Protonix Ec Tab) 40 mg PO DAILY [facility] Last Admin: 04/21/18 09:21 Dose: 40 mg Rifaximin (Xifaxan) 550 mg PO BID [facility]; Protocol Last Admin: 04/21/18 09:21 Dose: 550 mg - Labs Labs: 04/21/18 07:20 04/21/18 07:18 - Constitutional Appears: No Acute Distress - Head Exam Head Exam: ATRAUMATIC, NORMOCEPHALIC - Eye Exam Eye Exam: EOMI, PERRL - Neck Exam Neck Exam: absent: Lymphadenopathy, Thyromegaly - Respiratory Exam Respiratory Exam: NORMAL BREATHING PATTERN. absent: Rales, Rhonchi, Wheezes - Cardiovascular Exam Cardiovascular Exam: REGULAR RHYTHM, +S1, +S2. absent: Gallop, Rubs, Murmur - GI/Abdominal Exam GI & Abdominal Exam: Soft, Normal Bowel Sounds. absent: Tenderness, Mass, Organomegaly - Rectal Exam Rectal Exam: Deferred - Extremities Exam Extremities Exam: absent: Calf Tenderness, Pedal Edema Additional comments: stasis dermatitis blilateral Assessment and Plan (1) Hepatitis C Assessment & Plan: Repeat sonogram showed resolution of ascites which had been documented last month. She is currently asymptomatic. Urine sodium is 54, which is appropriate. The magnesium was low but was supplemented. Patient is stable from the GI standpoint. She may follow up in the office. Status: Acute
--- NOTE | 2018-04-21 23:10 | CP.PCM.CON ---
History of Present Illness - History of Present Illness History of Present Illness: uncontrolled diabetes Past Patient History - Infectious Disease Hx of Infectious Diseases: None - Past Medical History & Family History Past Medical History?: Yes - Past Social History Smoking Status: Never Smoked - CARDIAC Hx Cardiac Disorders: Yes Hx Hypertension: Yes - PULMONARY Hx Respiratory Disorders: No - NEUROLOGICAL Hx Neurological Disorder: Yes Hx Vertigo: Yes (does not take meclizine prescribed) - HEENT Hx HEENT Problems: No - RENAL Hx Chronic Kidney Disease: No - ENDOCRINE/METABOLIC Hx Endocrine Disorders: Yes Hx Hypothyroidism: Yes - HEMATOLOGICAL/ONCOLOGICAL Hx Blood Disorders: No - INTEGUMENTARY Hx Dermatological Problems: No - MUSCULOSKELETAL/RHEUMATOLOGICAL Hx Falls: No - GASTROINTESTINAL Hx Gastrointestinal Disorders: Yes Hx Gastroesophageal Reflux: Yes - GENITOURINARY/GYNECOLOGICAL Hx Genitourinary Disorders: No - PSYCHIATRIC Hx Substance Use: No - SURGICAL HISTORY Hx Surgeries: No - ANESTHESIA Hx Anesthesia: No Meds Allergies/Adverse Reactions: Allergies Allergy/AdvReac Type Severity Reaction Status Date / Time No Known Allergies Allergy Verified 01/11/18 14:34 - Medications Medications: Current Medications Acetaminophen (Tylenol 325mg Tab) 650 mg PO Q6 PRN PRN Reason: Pain, moderate (4-7) Amlodipine Besylate (Norvasc) 10 mg PO DAILY [facility] Last Admin: 04/21/18 09:23 Dose: 10 mg Dextrose (Dextrose 50% Inj) 0 ml IV STAT PRN; Protocol PRN Reason: Hypoglycemia Protocol Dextrose (Glutose 15) 0 gm PO ONCE PRN; Protocol PRN Reason: Hypoglycemia Protocol Furosemide (Lasix) 40 mg PO DAILY [facility] Last Admin: 04/21/18 09:23 Dose: 40 mg Glimepiride (Amaryl) 4 mg PO DAILY [facility] Last Admin: 04/21/18 09:22 Dose: 4 mg Glucagon (Glucagen Diagnostic Kit) 0 mg IM STAT PRN; Protocol PRN Reason: Hypoglycemia Protocol Heparin Sodium (Porcine) (Heparin) 5,000 units SC Q12 [facility] Last Admin: 04/21/18 21:35 Dose: Not Given Dextrose (Dextrose 5% In Water 1000 Ml) 1,000 mls @ 0 mls/hr IV .Q0M PRN; Protocol PRN Reason: Hypoglycemia Protocol Sodium Chloride (Sodium Chloride 0.9%) 1,000 mls @ 100 mls/hr IV .Q10H [facility] Last Admin: 04/21/18 17:06 Dose: 100 mls/hr Insulin Glargine (Lantus) 15 unit SC Q24H [facility] Last Admin: 04/21/18 11:45 Dose: 15 unit Insulin Human Regular (Novolin R) 4 unit SC AC [facility] Last Admin: 04/21/18 17:08 Dose: 4 units Insulin Human Regular (Novolin R) 0 unit SC ACHS [facility]; Protocol Last Admin: 04/21/18 21:30 Dose: Not Given Levothyroxine Sodium (Synthroid) 125 mcg PO DAILY@0630 [facility] Last Admin: 04/21/18 05:52 Dose: 125 mcg Losartan Potassium (Cozaar) 50 mg PO DAILY [facility] Last Admin: 04/21/18 09:23 Dose: 50 mg Meclizine HCl (Antivert) 25 mg PO Q6 PRN PRN Reason: Dizziness Metformin HCl (Glucophage) 1,000 mg PO BID [facility] Last Admin: 04/21/18 17:10 Dose: 1,000 mg Metoprolol Succinate (Toprol Xl) 200 mg PO DAILY [facility] Last Admin: 04/21/18 09:22 Dose: 200 mg Pantoprazole Sodium (Protonix Ec Tab) 40 mg PO DAILY [facility] Last Admin: 04/21/18 09:21 Dose: 40 mg Rifaximin (Xifaxan) 550 mg PO BID [facility]; Protocol Last Admin: 04/21/18 17:10 Dose: 550 mg Results - Vital Signs Recent Vital Signs: Last Vital Signs Temp 98.1 F 04/21/18 21:20 Pulse 60 04/21/18 21:20 Resp 20 04/21/18 21:20 BP 107/60 04/21/18 21:20 Pulse Ox 100 04/21/18 21:20 - Labs Result Diagrams: 04/21/18 07:20 04/21/18 07:18 Labs: Laboratory Results - last 24 hr 04/21/18 04/21/18 04/21/18 02:36 05:15 06:05 WBC RBC Hgb Hct MCV MCH MCHC RDW Plt Count MPV Neut % (Auto) Lymph % (Auto) [place] % (Auto) Eos % (Auto) Baso % (Auto) Neut # (Auto) Lymph # (Auto) [place] # (Auto) Eos # (Auto) Baso # (Auto) Sodium Potassium Chloride Carbon Dioxide Anion Gap BUN Creatinine Est GFR ( Amer) Est GFR (Non-Af Amer) POC Glucose (mg/dL) 115 H Random Glucose Hemoglobin A1c Calcium Phosphorus Magnesium Iron TIBC % Saturation Total Bilirubin AST ALT Alkaline Phosphatase Ammonia Total Protein Albumin Globulin Albumin/Globulin Ratio Triglycerides Cholesterol LDL Cholesterol Direct HDL Cholesterol Alpha Fetoprotein Vitamin B12 Folate TSH 3rd Generation Urine Color Yellow Urine Clarity Clear Urine pH 5.0 Ur Specific [place] 1.008 Urine Protein Negative Urine Glucose (UA) Normal Urine Ketones Negative Urine Blood Negative Urine Nitrate Negative Urine Bilirubin Negative Urine Urobilinogen Normal Ur Leukocyte Esterase Neg Urine WBC (Auto) 1 Ur Squamous Epith Cells < 1 Ur Random Sodium 54 04/21/18 04/21/18 04/21/18 06:18 07:18 07:18 WBC RBC Hgb Hct MCV MCH MCHC RDW Plt Count MPV Neut % (Auto) Lymph % (Auto) [place] % (Auto) Eos % (Auto) Baso % (Auto) Neut # (Auto) Lymph # (Auto) [place] # (Auto) Eos # (Auto) Baso # (Auto) Sodium 133 Potassium 3.6 Chloride 105 Carbon Dioxide 25 Anion Gap 7 L BUN 23 H Creatinine 1.0 Est GFR ( Amer) > 60 Est GFR (Non-Af Amer) 53 POC Glucose (mg/dL) 101 Random Glucose 104 D Hemoglobin A1c Calcium 8.3 L Phosphorus 3.5 Magnesium 0.9 L* D Iron TIBC % Saturation Total Bilirubin 1.2 AST 98 H ALT 72 H Alkaline Phosphatase 136 H D Ammonia Total Protein 7.7 Albumin 2.9 L Globulin 4.7 H Albumin/Globulin Ratio 0.6 L Triglycerides 97 Cholesterol 88 LDL Cholesterol Direct 40 HDL Cholesterol 27 L Alpha Fetoprotein 7.2 Vitamin B12 564 Folate 12.8 TSH 3rd Generation 11.50 H Urine Color Urine Clarity Urine pH Ur Specific [place] Urine Protein Urine Glucose (UA) Urine Ketones Urine Blood Urine Nitrate Urine Bilirubin Urine Urobilinogen Ur Leukocyte Esterase Urine WBC (Auto) Ur Squamous Epith Cells Ur Random Sodium 04/21/18 04/21/18 04/21/18 07:18 07:18 07:18 WBC RBC Hgb Hct MCV MCH MCHC RDW Plt Count MPV Neut % (Auto) Lymph % (Auto) [place] % (Auto) Eos % (Auto) Baso % (Auto) Neut # (Auto) Lymph # (Auto) [place] # (Auto) Eos # (Auto) Baso # (Auto) Sodium Potassium Chloride Carbon Dioxide Anion Gap BUN Creatinine Est GFR ( Amer) Est GFR (Non-Af Amer) POC Glucose (mg/dL) Random Glucose Hemoglobin A1c 9.2 H Calcium Phosphorus Magnesium Iron 64 TIBC 316 % Saturation 20 Total Bilirubin AST ALT Alkaline Phosphatase Ammonia 31 Total Protein Albumin Globulin Albumin/Globulin Ratio Triglycerides Cholesterol LDL Cholesterol Direct HDL Cholesterol Alpha Fetoprotein Vitamin B12 Folate TSH 3rd Generation Urine Color Urine Clarity Urine pH Ur Specific [place] Urine Protein Urine Glucose (UA) Urine Ketones Urine Blood Urine Nitrate Urine Bilirubin Urine Urobilinogen Ur Leukocyte Esterase Urine WBC (Auto) Ur Squamous Epith Cells Ur Random Sodium 04/21/18 04/21/18 04/21/18 07:20 11:19 16:23 WBC 3.4 L RBC 3.52 L Hgb 11.3 Hct 33.2 L MCV 94.3 MCH 32.0 H MCHC 33.9 RDW 14.6 H Plt Count 58 L MPV 10.0 Neut % (Auto) 50.3 Lymph % (Auto) 38.0 [place] % (Auto) 9.1 Eos % (Auto) 2.1 Baso % (Auto) 0.5 Neut # (Auto) 1.7 L Lymph # (Auto) 1.3 [place] # (Auto) 0.3 Eos # (Auto) 0.1 Baso # (Auto) 0.0 Sodium Potassium Chloride Carbon Dioxide Anion Gap BUN Creatinine Est GFR ( Amer) Est GFR (Non-Af Amer) POC Glucose (mg/dL) 200 H 177 H Random Glucose Hemoglobin A1c Calcium Phosphorus Magnesium Iron TIBC % Saturation Total Bilirubin AST ALT Alkaline Phosphatase Ammonia Total Protein Albumin Globulin Albumin/Globulin Ratio Triglycerides Cholesterol LDL Cholesterol Direct HDL Cholesterol Alpha Fetoprotein Vitamin B12 Folate TSH 3rd Generation Urine Color Urine Clarity Urine pH Ur Specific [place] Urine Protein Urine Glucose (UA) Urine Ketones Urine Blood Urine Nitrate Urine Bilirubin Urine Urobilinogen Ur Leukocyte Esterase Urine WBC (Auto) Ur Squamous Epith Cells Ur Random Sodium 04/21/18 21:22 WBC RBC Hgb Hct MCV MCH MCHC RDW Plt Count MPV Neut % (Auto) Lymph % (Auto) [place] % (Auto) Eos % (Auto) Baso % (Auto) Neut # (Auto) Lymph # (Auto) [place] # (Auto) Eos # (Auto) Baso # (Auto) Sodium Potassium Chloride Carbon Dioxide Anion Gap BUN Creatinine Est GFR ( Amer) Est GFR (Non-Af Amer) POC Glucose (mg/dL) 201 H Random Glucose Hemoglobin A1c Calcium Phosphorus Magnesium Iron TIBC % Saturation Total Bilirubin AST ALT Alkaline Phosphatase Ammonia Total Protein Albumin Globulin Albumin/Globulin Ratio Triglycerides Cholesterol LDL Cholesterol Direct HDL Cholesterol Alpha Fetoprotein Vitamin B12 Folate TSH 3rd Generation Urine Color Urine Clarity Urine pH Ur Specific [place] Urine Protein Urine Glucose (UA) Urine Ketones Urine Blood Urine Nitrate Urine Bilirubin Urine Urobilinogen Ur Leukocyte Esterase Urine WBC (Auto) Ur Squamous Epith Cells Ur Random Sodium Assessment & Plan (1) Uncontrolled diabetes mellitus Assessment and Plan: Endocrine consult reason for consult: uncontrolled diabetes Source: patient and chart review Jackie Whitten is 83 y/o admitted for weakness , found with glucose > 500 as per pt. chart reveiw since pt. awake & alert to self & place , avoid talking , pt. has DM ( for years as per pt.) (-) neuropathy , (-) retinopathy , (-) nephropathy (-) CAD (-) PVD , on jenutoduto 2.07/999 po bid & glimpride 4 mg po qd endocrine consult contacted yesterday for glucose > 500 , rescommendations : start lants 15 units daily first stat , humalin R low dose coverage & humalin R 4 units tid with meals if eat more than 60% of the meal blood glucose log :170-200 one episode of 101 NO hypoglycemia also with hypothyroidism on 125 mcg po qd Allergy NKDA Past medical history:HTN , hepatis C / liver cirrhosis Past surgical history: cholecystectomy, Psychiatry history: denies Social history: denies smoking , ETOH use or illicit drug use Family history: mother with DM ROS: Constitutional: denies fever, tiredness/weakness. HEENT: denies earache, change in voice .Respiratory: denies cough, sob . CVS :no chest pain, no palpitations . Abdomen: no abdominal pain, no nausea /vomiting, no change bowel movement. 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 Extremities: no edema, no tremors. Skin: no itching, no rash Physical exam Well-developed AAO x2-3 , ,NAD VSS HEENT: norm cephalic, atraumatic, no lid lag , no exophthalmos NECK: supple, no palpable lymphadenopathy THYROID: no palpable thyromegaly, not tender CHEST: fair air entry, bilateral, CVS: S1,S2 ABDOMEN: bowel sound present, distended , benign, obese, no wide purple striae , no bruises EXTREMITIES: trace pitting edema, clubbing or cyanosis, no palpable hand tremors Skin: acanthosis nigricans -lab: tsh 11.5 , a1c 9.2 Assessment: uncontrolled DM hypothyroidism hyperamoniemia /liver cirrhosis obesity plan : continue lantus 15 units sq daily change regular insulin to low dose coverage tid & hs continue regular insulin 4 units tid with meals if eat > 60% hold Metformin for now continue levothyroxine 125 mcg po qd @ 6:30 am obtain thyroid functions Thank you for allowing me to participate in the care of the patient, we will follow with you. Naa Haynes # [phone] office Fridays & Saturdays address: [address] [place] [address] ,phone # [phone] ,FAX [phone] Status: Acute (2) Hyperammonemia Status: Acute (3) Hypothyroid Status: Acute
[2018-04-22 00:22] VITALS: O2SAT 98
[2018-04-22] MEDS: Sodium Chloride 0.9% 1,000 ML IV SCH ×3 (02:30→10:01)
[2018-04-22] MEDS: Levothyroxine 125 MCG TAB PO SCH (05:43)
[2018-04-22 07:20] LABS: BASO % 0.5 % (0.0-2.0); EOS # 0.1 K/uL (0.0-0.7); EOS % 1.8 % (0.0-4.0); HEMOGLOBIN 11.2 g/dL (11.0-16.0); LYMPH # 1.4 K/uL (1.0-4.3); LYMPH % 26.6 % (20.0-40.0); MEAN CELL VOLUME 94.3 fL (81.0-99.0); MEAN PLATELET VOLUME 10.2 fL (7.2-11.7); MONO # 0.5 K/uL (0.0-0.8); MONO % 9.7 % (0.0-10.0); NEUT # 3.2 K/uL (1.8-7.0); NEUT % 61.4 % (50.0-75.0); RBC 3.5 Mil/uL (3.80-5.20); RED CELL DISTRIBUTION WIDTH 14.6 % (11.5-14.5)
[2018-04-22 07:21] LABS: WHITE BLOOD COUNT 5.2 K/uL (4.8-10.8)
[2018-04-22 07:41] LABS: BLOOD UREA NITROGEN 28 mg/dL (7-17); GFR NON-AFRICAN AMERICAN 53
[2018-04-22] MEDS: (Novolin R) Insulin Human Regular 100 units/ml vial SC SCH ×4 (07:53→11:32)
[2018-04-22 08:10] LABS: T3 1.39 nmol/L (1.49-2.60)
[2018-04-22 08:37] VITALS: BP 106/55; PULSE 60; TEMP 98.2
[2018-04-22] MEDS: Magnesium Sulfate 1 gm in D5W 1 GM/100 ML BAG IVPB SCH ×2 (08:58→09:58)
[2018-04-22] MEDS: Pantoprazole 40 mg EC Tab PO SCH (09:59)
[2018-04-22] MEDS: Metoprolol Succinate 100 mg XL Tab PO SCH (10:00)
[2018-04-22] MEDS: (Lantus) Insulin Glargine, Recombinant SC SCH (12:54)
--- NOTE | 2018-04-22 17:10 | CP.PCM.PN ---
Subjective - Date & Time of Evaluation Date of Evaluation: 04/22/18 Time of Evaluation: 17:10 - Subjective Subjective: alert, awake, no sob or distress noted. Objective - Vital Signs/Intake and Output Vital Signs (last 24 hours): Temp Pulse Resp BP Pulse Ox 98.2 F 60 20 106/55 L 98 04/22/18 07:00 04/22/18 07:00 04/22/18 07:00 04/22/18 09:59 04/22/18 07:00 Intake and Output: 04/22/18 04/22/18 06:59 18:59 Intake Total 2340 600 Balance 2340 600 - Labs Labs: 04/22/18 07:04 04/22/18 07:04 Assessment and Plan - Assessment and Plan (Free Text) Assessment: 83 year old female admitted with high blood sugar, abnormal electrolytes, seen and examined. Alert, ambulates with cane, no acute distress. Discussed with DR Dominguez, plan to discharge home with home care , home PT. Advised to continue with present medications at home. Plan to go home today with her freind who is coming to pick her up for home.
--- NOTE | 2018-04-23 15:50 | PN ---
DATE: 04/21/2018 SUBJECTIVE: The patient was seen and examined at the bedside on 04/21/2018. Looking comfortable. No fever. No chills. No hematuria or hematochezia. No headache. No dizziness. No chest pain. No palpitations. Denies abdominal pain. Denies nausea or vomiting. She has not had bowel movements so far today. The patient shows no ascites, so paracentesis was canceled. PHYSICAL EXAMINATION: VITAL SIGNS: Temperature 97.3, pulse 59, respiratory rate 20, blood pressure 126/75. Pulse oximetry 97%. HEENT: Head normocephalic, atraumatic. Eyes; PERRLA. Extraocular muscles are intact. Conjunctivae clear. Nose patent. Mucous membranes are moist. NECK: Supple. No carotid bruits. No JVD or thyromegaly. CHEST: Bilaterally symmetrical. HEART: S1 and S2 positive. LUNGS: Clear to auscultation. ABDOMEN: Soft. Bowel sounds positive. No organomegaly. EXTREMITIES: No edema. No cyanosis. CENTRAL NERVOUS SYSTEM: The patient is awake. Follows verbal commands. MEDICATIONS: Amlodipine, dextrose, Lasix, Amaryl, heparin, insulin and levothyroxine. LABORATORY DATA: White blood cell count 3.4, hemoglobin 11.3, hematocrit 33.3, platelets 58. Sodium 136, potassium 3.9, BUN 20, creatinine 1, glucose 104. ASSESSMENT AND PLAN: Ms. Axel Pena is an 83-year-old female with leukopenia, thrombocytopenia, high BUN, history of hepatitis C positive, not getting treatment. Sonography showed resolution of ascites, which had been documented last month. She is apparently asymptomatic. Urine sodium of 54, which is appropriate. Magnesium was low but was replaced. Gastroenterology was on the case. Gastroenterology cleared the patient that the patient is stable. Seen by Dr. Moreno and Dr. Boucher, seeing me for uncontrolled diabetes mellitus. Gastrointestinal prophylaxis given. History of hyperammonemia, improved hypothyroidism. Repeat labs. Will follow up. Yulia Dominguez MD [facility]ENN[facility]
--- NOTE | 2018-04-24 12:01 | CARD ---
APPROVED REPORT Date of service: 04/19/2018 EKG Measurement Heart [id number] <Conclusion> Normal sinus rhythm Cannot rule out Anterior infarct, age undetermined Abnormal ECG
--- NOTE | 2018-05-04 09:02 | DS ---
The patient is an 83-year-old female. The patient was seen and examined in the bedside on 04/22/2018. This is a discharge summary for 04/22/2018. CHIEF COMPLAINT: Alerted mental status, weakness, nausea and neck pain. HISTORY OF PRESENT ILLNESS: Ms. Jackie Pena is an 83-year-old female with past medical history of hepatitis, came to the emergency room with nausea, vomiting, neck pain, controlled. Fingerstick was high like 500, liver enzymes were elevated, ammonia level is high. The patient has history of hepatitis C, was positive; had ascites, had nodular liver contour. Sonography done. The patient's primary doctor was Dr. Nir Cho while the patient called Dr. Nir Cho's consult. He is a graphic artist. The patient improved, seen by Dr. Naa Boucher because of uncontrolled diabetes mellitus, altered mental status improved, discharged home, will follow up with her own primary care physician and graphic artist. Meds are at bedside. PAST MEDICAL HISTORY: As above. Cirrhosis of the liver, asthma, hypertension, hypercholesterolemia, hepatitis C positive. ALLERGIES: THE PATIENT IS NOT ALLERGIC WITH ANY MEDICATION. FAMILY HISTORY: Father and mother are noncontributory. HABITS: No smoking, no drugs, no ethanol. REVIEW OF SYSTEMS: The patient was seen and examined at the bedside, looking comfortable. No fever, no chills. No hematuria, hematochezia. No headache or dizziness. Mental level is back to the normal. Awake, alert, no shortness of breath or distress noted. PHYSICAL EXAMINATION: VITAL SIGNS: Temperature 96.2, pulse 60, respiratory rate 20, blood pressure 106/55, pulse oximetry 98. HEENT: Head normocephalic and atraumatic. Eyes: PERRLA. Extraocular muscles intact. Conjunctivae clear, nose patent, mucous membrane moist. NECK: Supple. No carotid bruit. No JVD or thyromegaly. CHEST: Bilaterally symmetrical. HEART: S1, S2 positive. LUNGS: Clear to auscultation. ABDOMEN: Soft, bowel sounds positive. No organomegaly. EXTREMITIES: No edema, no cyanosis. NEUROLOGIC: The patient is awake, alert, follows simple commands. LABORATORY DATA: White blood cells 5.3, hemoglobin 11.2, hematocrit 33, platelets 59. Sodium 135, potassium 3.8, BUN 28, creatinine 1, glucose 90. ASSESSMENT AND PLAN: Ms. Jackie Pena is an 83-year-old lady with thrombocytopenia, renal insufficiency, history of cirrhosis of the liver, hepatitis C positive, came with altered mental status, hepatic cirrhosis, encephalopathy, history of leukopenia, hypothyroidism, hyperammonemia. continue Lantus 15 mg subcutaneously, Hold metformin for now because of renal insufficiency, continue levothyroxine for hypothyroidism, hyperammonemia getting better. Hypothyroidism getting better. Gastrointestinal and deep venous thrombosis prophylaxis given. The patient improved, discharged home. Rehab offered, they refused. We will follow up her own primary care physician. Yulia Dominguez MD MTDD
== END 2018-04-22 17:03 | disposition home or self-care (01) | DRG 638 ==
LOC: C.ER 16:42 → C.9E 20:10 → C.5S 20:50 → C.3T 04-21 21:04
PROVIDERS: ADMIT Internal Medicine; ATTEND Internal Medicine
PROC: BW40ZZZ Ultrasonography of Abdomen (ICD-10-PCS; principal; 2018-04-21)
DX: E11.65 Type 2 diabetes mellitus with hyperglycemia (principal); E87.1 Hypo-osmolality and hyponatremia; R18.8 Other ascites; D72.819 Decreased white blood cell count, unspecified; B19.20 Unspecified viral hepatitis C without hepatic coma; E66.9 Obesity, unspecified; E03.9 Hypothyroidism, unspecified; I10 Essential (primary) hypertension; K72.90 Hepatic failure, unspecified without coma; Z79.4 Long term (current) use of insulin; K21.9 Gastro-esophageal reflux disease without esophagitis; K74.60 Unspecified cirrhosis of liver; D69.6 Thrombocytopenia, unspecified; J45.909 Unspecified asthma, uncomplicated; N28.9 Disorder of kidney and ureter, unspecified; E78.00 Pure hypercholesterolemia, unspecified

== ENCOUNTER 2018-04-29 16:26 | Inpatient (IN) | payer MEDICARE ==
[2018-04-29 18:11] LABS: BASO % 0.7 % (0.0-2.0); EOS # 0.1 K/uL (0.0-0.7); EOS % 1.3 % (0.0-4.0); HEMOGLOBIN 12.4 g/dL (11.0-16.0); LYMPH # 1.7 K/uL (1.0-4.3); LYMPH % 33.8 % (20.0-40.0); MEAN CELL VOLUME 95.3 fL (81.0-99.0); MEAN CORPUSCULAR HEMOGLOBIN 31.1 pg (27.0-31.0); MEAN CORPUSCULAR HGB CONC 32.6 g/dL (33.0-37.0); MEAN PLATELET VOLUME 10.5 fL (7.2-11.7); MONO # 0.5 K/uL (0.0-0.8); NEUT # 2.7 K/uL (1.8-7.0); NEUT % 54.2 % (50.0-75.0); NRBC % 0.3 % (0.0-2.0); RED CELL DISTRIBUTION WIDTH 14.4 % (11.5-14.5); WHITE BLOOD COUNT 4.9 K/uL (4.8-10.8)
[2018-04-29 18:22] LABS: ALB/GLOB RATIO 0.7 (1.0-2.1); ALBUMIN 3.7 g/dL (3.5-5.0); CALCIUM 8.9 mg/dl (8.6-10.4)
[2018-04-29 18:32] LABS: TROPONIN I 0.017 ng/mL (0.00-0.120)
--- NOTE | 2018-04-29 18:41 | C.PDOC ---
History Of Present Illness 83 yo female,w/PMhx of diabetes, HTN, and hypothyroidism, brought to ER by ambulance for evaluation of change in mental status. As per EMS, patient's home health attendant noticed that patient has change in mental status. Patient was evaluated for change in mental status in [facility] on 04/19/18. Of note, HPI is limited because patient appears confused. Time Seen by Provider: 04/29/18 17:36 Chief Complaint (Nursing): Altered Mental Status History Per: Patient, EMS History/Exam Limitations: Clinical Condition Onset/Duration Of Symptoms: Days Current Symptoms Are (Timing): Still Present Severity: Moderate Past Medical History Reviewed: Historical Data, Nursing Documentation, Vital Signs Vital Signs: Last Vital Signs Temp 97.9 F 04/29/18 16:43 Pulse 65 04/29/18 16:43 Resp 20 04/29/18 16:43 BP 126/52 L 04/29/18 16:43 Pulse Ox 100 04/29/18 16:43 - Medical History PMH: Diabetes, HTN, Hypothyroidism Denies: Chronic Kidney Disease Surgical History: No Surg Hx - [facility] Procedures ULTRASONOGRAPHY OF ABDOMEN (04/19/18) Family History: States: No Known Family Hx - Social History Hx Alcohol Use: No Hx Substance Use: No - Immunization History Hx Tetanus Toxoid Vaccination: No Hx Influenza Vaccination: Yes Hx Pneumococcal Vaccination: Yes Review Of Systems Review Of Systems: ROS cannot be obtained secondary to pt's inabilty to answer questions. Physical Exam - Physical Exam Appears: Confused, Other (awake,alert, pleasant) Skin: Normal Color, Warm, Dry Head: Atraumatic, Normacephalic Eye(s): bilateral: Normal Inspection Nose: Normal Oral Mucosa: Moist Neck: Supple Chest: Symmetrical Cardiovascular: Rhythm Regular Respiratory: Normal Breath Sounds, No Rales, No Rhonchi, No Wheezing Gastrointestinal/Abdominal: Normal Exam, Soft, No Tenderness, No Guarding, No Rebound Neurological/Psych: Other (awake,alert, confused ) ED Course And Treatment - Laboratory Results Result Diagrams: 04/29/18 18:01 04/29/18 18:01 Lab Results: Troponin I 0.0170 ng/mL (0.00-0.120) 04/29/18 18:01 NT-Pro-B Natriuret Pep 482 pg/mL (0-900) 04/29/18 18:01 Total Bilirubin 1.6 mg/dL (0.2-1.3) H 04/29/18 18:01 AST 129 U/L (14-36) H D 04/29/18 18:01 ALT 76 U/L (9-52) H 04/29/18 18:01 Alkaline Phosphatase 145 U/L (38-126) H 04/29/18 18:01 Total Protein 9.3 g/dL (6.3-8.3) H 04/29/18 18:01 Albumin 3.7 g/dL (3.5-5.0) 04/29/18 18:01 Globulin 5.5 gm/dL (2.2-3.9) H 04/29/18 18:01 Albumin/Globulin Ratio 0.7 (1.0-2.1) L 04/29/18 18:01 Lab Interpretation: Abnormal (ammonia 94H) ECG: Interpreted By Me ECG Rhythm: Sinus Rhythm ECG Interpretation: Normal Rate From EC O2 Sat by Pulse Oximetry: 100 (RA) Pulse Ox Interpretation: Normal - Radiology CXR: Interpreted by Me CXR Interpretation: Yes: No Acute Disease, Other (Mild venous congestion) Progress Note: lactulose 20 mg PO Reevaluation Time: 20:15 Reassessment Condition: Improved - Physician Consult Information Outcome Of Conversation: 2015: d/w Dr. Dominguez- admitted earlier this month. ok to admit. Medical Decision Making Medical Decision Making: Plan: --Labs --UA --EKG h/o Hep C and elevated LFT's, change of MS, ammonia 94 lactulose therapy and follow ammonia level Disposition Doctor Will See Patient In The: Hospital Counseled Patient/Family Regarding: Studies Performed, Diagnosis - Disposition Disposition: HOSPITALIZED Disposition Time: 20:17 Condition: GOOD - Clinical Impression Clinical Impression: Hyperammonemia - Scribe Statement The provider has reviewed the documentation as recorded by the Tara Kitchen Provider Attestation: All medical record entries made by the Radhaibtanner were at my direction and personally dictated by me. I have reviewed the chart and agree that the record accurately reflects my personal performance of the history, physical exam, medical decision making, and the department course for this patient. I have also personally directed, reviewed, and agree with the discharge instructions and disposition.
[2018-04-29 20:08] LABS: SQUAMOUS EPITHIAL < 1 /hpf (0-5); URINE BILIRUBIN NEGATIVE (NEGATIVE); URINE BLOOD NEGATIVE (NEGATIVE); URINE CLARITY Clear (Clear); URINE COLOR Straw (YELLOW); URINE GLUCOSE (UA) NORMAL (Normal); URINE LEUKOCYTE ESTERASE NEG Leu/uL (Negative); URINE PROTEIN NEGATIVE (NEGATIVE); URINE UROBILINOGEN NORMAL mg/dL (0.2-1.0)
[2018-04-30] MEDS ORDERED: Glucagon Recombinant 1 mg Inj IM PRN (05:39)
[2018-04-30] MEDS ORDERED: Dextrose 50% SYRINGE Inj (50 ml) IV PRN (05:39)
[2018-04-30] MEDS: Levothyroxine 125 MCG TAB PO SCH (06:36)
[2018-04-30] MEDS: (Novolog) Insulin Aspart, Recombinant 100 u/ml 10 ml vial SC SCH ×4 (07:49→21:54)
--- NOTE | 2018-04-30 08:22 | RAD ---
Date of service: 04/29/2018 HISTORY: adm COMPARISON: 04/19/2018. FINDINGS: LUNGS: The lungs are well inflated. There is moderate pulmonary venous congestion and mild interstitial pulmonary edema. PLEURA: No pleural effusions or pneumothorax. CARDIOVASCULAR: Mild cardiomegaly. There are aortic atherosclerotic calcifications present. OSSEOUS STRUCTURES: Within normal limits for the patient's age. VISUALIZED UPPER ABDOMEN: Normal. OTHER FINDINGS: None. IMPRESSION: No active pulmonary disease. Mild cardiomegaly, moderate pulmonary venous congestion and mild interstitial pulmonary edema.
[2018-04-30] MEDS: Metoprolol Succinate 100 mg XL Tab PO SCH (09:29)
[2018-04-30] MEDS: Pantoprazole 40 mg EC Tab PO SCH (09:29)
[2018-04-30] MEDS ORDERED: Enoxaparin 30 mg Syringe SC SCH (10:00)
[2018-04-30 11:30] LABS: HEMOGLOBIN 11.2 g/dL (11.0-16.0); MEAN CELL VOLUME 94.7 fL (81.0-99.0); MEAN CORPUSCULAR HEMOGLOBIN 32.4 pg (27.0-31.0); MEAN CORPUSCULAR HGB CONC 34.2 g/dL (33.0-37.0); MEAN PLATELET VOLUME 10.1 fL (7.2-11.7); RBC 3.44 Mil/uL (3.80-5.20); RED CELL DISTRIBUTION WIDTH 14.5 % (11.5-14.5); WHITE BLOOD COUNT 3.8 K/uL (4.8-10.8)
[2018-04-30 11:42] LABS: CALCIUM 8.8 mg/dl (8.6-10.4)
--- NOTE | 2018-04-30 16:45 | CARD ---
APPROVED REPORT Date of service: 04/29/2018 EKG Measurement Heart [id number] <Conclusion> Normal sinus rhythm Cannot rule out Anterior infarct, age undetermined Abnormal ECG
--- NOTE | 2018-05-01 04:43 | HP ---
The patient is an 83-year-old female. The patient was seen and examined at the bedside on 04/30/2018. CHIEF COMPLAINT: Altered mental status. HISTORY OF PRESENT ILLNESS: Ms. Jackie Pena is an 83-year-old female with past medical history of diabetes mellitus, hypertension, hypothyroidism, brought to ER by ambulance for evaluation of change in the mental status. As per EMS, the patient's home health , noticed that the patient has change in the mental status. The patient was evaluated for change in mental status and discharged from hospital on 04/19/2018, and she was discharged after paracentesis. She was seen by reaming machine operator for plastic. The patient is not able to give review of system, but she looks comfortable. PAST MEDICAL HISTORY: Diabetes mellitus, hypertension, and hypothyroidism. SOCIAL HISTORY: No smoking. No drugs. No ethanol. REVIEW OF SYSTEMS: The patient was seen and examined at bedside. Looking comfortable. No fever, no chills, no hematuria or hematochezia. No swelling of the leg. No chest pain. No palpitation. No headache or dizziness. PHYSICAL EXAMINATION: VITAL SIGNS: Temperature 97.6, pulse is 56, blood pressure 93/58, and respiratory rate 20. HEENT: Head; normocephalic and atraumatic. Eyes; PERRLA, extraocular muscles are intact, conjunctivae clear. Nose patent. Mucous membranes most. NECK: Supple. No carotid bruit. No JVD or thyromegaly. CHEST: Bilaterally symmetrical. HEART: S1 and S2 positive. LUNGS: Clear to auscultation. ABDOMEN: Soft, distended. Fluid thrill is positive. EXTREMITIES: No edema. No cyanosis. NEUROLOGIC: The patient is awake, alert. Moving all four extremities. No focal deficits. LABORATORY DATA: White blood cell 3.8, hemoglobin 11.2, hematocrit 32.6, and platelets 52. Sodium 135, potassium 4, BUN 47, creatinine 1.3, and glucose 292. ASSESSMENT AND PLAN: Ms. Jackie Pena is an 83-year-old female with leukopenia, anemia, thrombocytopenia, renal sufficiency, diabetes mellitus, increased ammonia level, has cirrhosis of the liver. Chest x-ray done, reviewed by me. No active pulmonary disease, mild cardiomegaly, moderate pulmonary venous congestion, and mild interstitial pulmonary edema. The patient has history of hypothyroidism, history of ascites, history of paracentesis done last time by interventional radiologist. The patient had multiple admissions for change of mental status, hyperammonemia, history of pneumonia. I called gastrointestinal consult. Repeat laboratories. We will follow up. Yulia Dominguez MD MTDBrandt
[2018-05-01] MEDS: Levothyroxine 125 MCG TAB PO SCH (05:41)
[2018-05-01 07:13] LABS: BASO % 0.6 % (0.0-2.0); EOS # 0.1 K/uL (0.0-0.7); EOS % 1.4 % (0.0-4.0); LYMPH # 2.3 K/uL (1.0-4.3); LYMPH % 40.1 % (20.0-40.0); MEAN CELL VOLUME 93.8 fL (81.0-99.0); MEAN CORPUSCULAR HEMOGLOBIN 32.5 pg (27.0-31.0); MEAN CORPUSCULAR HGB CONC 34.6 g/dL (33.0-37.0); MEAN PLATELET VOLUME 10.2 fL (7.2-11.7); MONO # 0.5 K/uL (0.0-0.8); MONO % 9.3 % (0.0-10.0); NEUT # 2.8 K/uL (1.8-7.0); NEUT % 48.6 % (50.0-75.0); NRBC % 0.1 % (0.0-2.0); RBC 4.13 Mil/uL (3.80-5.20); RED CELL DISTRIBUTION WIDTH 14.4 % (11.5-14.5)
[2018-05-01 07:15] LABS: ALB/GLOB RATIO 0.7 (1.0-2.1); CALCIUM 9.3 mg/dl (8.6-10.4)
[2018-05-01 07:17] LABS: HEMOGLOBIN 13.4 g/dL (11.0-16.0); WHITE BLOOD COUNT 5.8 K/uL (4.8-10.8)
[2018-05-01] MEDS: (Novolog) Insulin Aspart, Recombinant 100 u/ml 10 ml vial SC SCH ×5 (09:05→21:22)
--- NOTE | 2018-05-01 09:40 | CP.PCM.CON ---
History of Present Illness - History of Present Illness History of Present Illness: This is an 83 year old woman with hepatitis C who is known to me from the previous admissions of 03/12/2018 and 04/19/2018.. Patient presented to the ER 03/12/2018 with weakness, nausea, neck pain and confusion. Finger stick on the day prior to admission was 500. On evaluation in the ER, VS were stable. The PT was near normal at 14.1. The liver enzymes were elevated: AST 95, ALT 53, ALKP 152. The ammonia level was also elevated at 68. Hepatitis C JUANCARLOS was positive, CT scan of the chest showed ascites and nodular liver contour. Sonogram of the abdomen showed nodular hepatic contour, increased echogenicity of the liver, S/P cholecystectomy, CBD 9 mm, splenomegaly, moderate abdominal ascites. Subsequently, the hepatits C RNA was positive. The ammonia level was 68 on admission and improved to 22. She refused paracentesis and was discharged on 03/17/2018. Patient was brought to the ER on 04/19/2018 complaining of not feeling well, high finger stick readings for sugar, and upper abdominal pain. Glucose on admission was 668, and the ammonia level was 79, but the repeat two hours later was 33. The AST was 118, ALT 70, ALKP 291. PT was not done. Paracentesis was ordered, but repeat ultrasound showed no ascites. She was discharged on 04/22/2018. Patient's home health aide noted a change in mental status on 04/29/2018. She was evaluated in the ER and was found to be confused. Vital signs were stable. There were no significant findings on physical exam. Blood work was significant for renal insufficiency (GFR 29, repeat 39), worse than on the previous admission. Ammonia level was again elevated, 94 (repeat 114 and 169). At present, patient is confused, but denies having abdominal pain, nausea, vomiting, difficulty swallowing, heartburn, diarrhea, constipation, and rectal bleeding. Review of Systems - Review of Systems Systems not reviewed;Unavailable: Altered Mental Status Past Patient History - Infectious Disease Hx of Infectious Diseases: None - Past Medical History & Family History Past Medical History?: Yes - Past Social History Smoking Status: Never Smoked - CARDIAC Hx Cardiac Disorders: Yes Hx Hypertension: Yes - PULMONARY Hx Respiratory Disorders: No - NEUROLOGICAL Hx Neurological Disorder: Yes Hx Vertigo: Yes (does not take meclizine prescribed) - HEENT Hx HEENT Problems: No - RENAL Hx Chronic Kidney Disease: No - ENDOCRINE/METABOLIC Hx Diabetes Mellitus Type 2: Yes Hx Hypothyroidism: Yes - HEMATOLOGICAL/ONCOLOGICAL Hx Blood Disorders: No - INTEGUMENTARY Hx Dermatological Problems: No - MUSCULOSKELETAL/RHEUMATOLOGICAL Hx Musculoskeletal Disorders: Yes Hx Falls: No Other/Comment: ambulates with cane - GASTROINTESTINAL Hx Gastrointestinal Disorders: Yes Hx Gastroesophageal Reflux: Yes - GENITOURINARY/GYNECOLOGICAL Hx Genitourinary Disorders: No - PSYCHIATRIC Hx Psychophysiologic Disorder: No Hx Substance Use: No - SURGICAL HISTORY Hx Surgeries: No - ANESTHESIA Hx Anesthesia: No Meds Allergies/Adverse Reactions: Allergies Allergy/AdvReac Type Severity Reaction Status Date / Time No Known Allergies Allergy Verified 01/11/18 14:34 - Medications Medications: Current Medications Amlodipine Besylate (Norvasc) 5 mg PO DAILY [facility] Last Admin: 04/30/18 09:29 Dose: 5 mg Dextrose (Dextrose 50% Inj) 0 ml IV STAT PRN; Protocol PRN Reason: Hypoglycemia Protocol Dextrose (Glutose 15) 0 gm PO ONCE PRN; Protocol PRN Reason: Hypoglycemia Protocol Furosemide (Lasix) 40 mg PO DAILY [facility] Last Admin: 04/30/18 09:30 Dose: 40 mg Glucagon (Glucagen Diagnostic Kit) 0 mg IM STAT PRN; Protocol PRN Reason: Hypoglycemia Protocol Dextrose (Dextrose 5% In Water 1000 Ml) 1,000 mls @ 0 mls/hr IV .Q0M PRN; Protocol PRN Reason: Hypoglycemia Protocol Insulin Aspart (Novolog) 0 unit SC [facility]; Protocol Last Admin: 05/01/18 09:06 Dose: Not Given Lactulose (Enulose) 20 gm PO BID [facility] Last Admin: 04/30/18 17:27 Dose: 20 gm Levothyroxine Sodium (Synthroid) 125 mcg PO DAILY@0630 [facility] Last Admin: 05/01/18 05:41 Dose: 125 mcg Met[facility] ([facility]) [facility] Last Admin: 05/01/18 09:07 Dose: Not Given Metoprolol Succinate (Toprol Xl) 200 mg PO DAILY [facility] Last Admin: 04/30/18 09:29 Dose: 200 mg Pantoprazole Sodium (Protonix Ec Tab) 40 mg PO DAILY [facility] Last Admin: 04/30/18 09:29 Dose: 40 mg Sitagliptin Phosphate (Januvia) 50 mg PO DAILY [facility] Last Admin: 04/30/18 13:35 Dose: 50 mg Spironolactone (Aldactone) 50 mg PO DAILY [facility] Last Admin: 04/30/18 09:29 Dose: 50 mg Physical Exam - Constitutional Appears: Confused - Head Exam Head Exam: ATRAUMATIC, NORMOCEPHALIC - Eye Exam Eye Exam: EOMI, PERRL - Neck Exam Neck exam: Negative for: Lymphadenopathy, Thyromegaly - Respiratory Exam Respiratory Exam: NORMAL BREATHING PATTERN. absent: Rales, Rhonchi, Wheezes - Cardiovascular Exam Cardiovascular Exam: REGULAR RHYTHM, +S1, +S2. absent: Gallop, Rubs, Systolic Murmur - GI/Abdominal Exam GI & Abdominal Exam: Normal Bowel Sounds, Soft. absent: Mass, Organomegaly, Tenderness - Rectal Exam Rectal Exam: Deferred - Extremities Exam Extremities exam: Negative for: calf tenderness, pedal edema Results - Vital Signs Recent Vital Signs: Last Vital Signs Temp 98.7 F 05/01/18 08:00 Pulse 61 05/01/18 08:00 Resp 20 05/01/18 08:00 BP 100/65 05/01/18 08:00 Pulse Ox 96 05/01/18 08:00 - Labs Result Diagrams: 05/01/18 06:47 05/01/18 06:47 Labs: Laboratory Results - last 24 hr 04/30/18 04/30/18 04/30/18 11:12 11:20 11:20 WBC 3.8 L RBC 3.44 L Hgb 11.2 Hct 32.6 L MCV 94.7 MCH 32.4 H MCHC 34.2 RDW 14.5 Plt Count 62 L MPV 10.1 Neut % (Auto) Lymph % (Auto) [place] % (Auto) Eos % (Auto) Baso % (Auto) Neut # (Auto) Lymph # (Auto) [place] # (Auto) Eos # (Auto) Baso # (Auto) Sodium 135 Potassium 4.0 Chloride 100 Carbon Dioxide 25 Anion Gap 14 BUN 47 H Creatinine 1.3 H Est GFR ( Amer) 47 Est GFR (Non-Af Amer) 39 POC Glucose (mg/dL) 290 H Random Glucose 292 H Calcium 8.8 Total Bilirubin AST ALT Alkaline Phosphatase Ammonia Total Protein Albumin Globulin Albumin/Globulin Ratio TSH 3rd Generation 04/30/18 04/30/18 04/30/18 11:20 17:10 21:00 WBC RBC Hgb Hct MCV MCH MCHC RDW Plt Count MPV Neut % (Auto) Lymph % (Auto) [place] % (Auto) Eos % (Auto) Baso % (Auto) Neut # (Auto) Lymph # (Auto) [place] # (Auto) Eos # (Auto) Baso # (Auto) Sodium Potassium Chloride Carbon Dioxide Anion Gap BUN Creatinine Est GFR ( Amer) Est GFR (Non-Af Amer) POC Glucose (mg/dL) 253 H 237 H Random Glucose Calcium Total Bilirubin AST ALT Alkaline Phosphatase Ammonia 114 H D Total Protein Albumin Globulin Albumin/Globulin Ratio TSH 3rd Generation 05/01/18 05/01/18 05/01/18 06:47 06:47 06:47 WBC 5.8 D RBC 4.13 Hgb 13.4 D Hct 38.7 MCV 93.8 MCH 32.5 H MCHC 34.6 RDW 14.4 Plt Count 73 L MPV 10.2 Neut % (Auto) 48.6 L Lymph % (Auto) 40.1 H [place] % (Auto) 9.3 Eos % (Auto) 1.4 Baso % (Auto) 0.6 Neut # (Auto) 2.8 Lymph # (Auto) 2.3 [place] # (Auto) 0.5 Eos # (Auto) 0.1 Baso # (Auto) 0.0 Sodium 138 Potassium 4.2 Chloride 101 Carbon Dioxide 25 Anion Gap 16 BUN 45 H Creatinine 1.3 H Est GFR ( Amer) 47 Est GFR (Non-Af Amer) 39 POC Glucose (mg/dL) Random Glucose 172 H D Calcium 9.3 Total Bilirubin 1.2 AST 121 H ALT 74 H Alkaline Phosphatase 160 H Ammonia 169 H D Total Protein 9.4 H Albumin 4.0 Globulin 5.4 H Albumin/Globulin Ratio 0.7 L TSH 3rd Generation 37.00 H 05/01/18 07:27 WBC RBC Hgb Hct MCV MCH MCHC RDW Plt Count MPV Neut % (Auto) Lymph % (Auto) [place] % (Auto) Eos % (Auto) Baso % (Auto) Neut # (Auto) Lymph # (Auto) [place] # (Auto) Eos # (Auto) Baso # (Auto) Sodium Potassium Chloride Carbon Dioxide Anion Gap BUN Creatinine Est GFR ( Amer) Est GFR (Non-Af Amer) POC Glucose (mg/dL) 171 H Random Glucose Calcium Total Bilirubin AST ALT Alkaline Phosphatase Ammonia Total Protein Albumin Globulin Albumin/Globulin Ratio TSH 3rd Generation Assessment & Plan (1) Hepatic encephalopathy Assessment and Plan: Patient has a history of hepatitis C and cirrhosis and two recent admissions for exacerbations of hepatic encephalopathy. Patient is again confused with elevated ammonia level. She has no bleeding or obvious source of infection. H owever, renal function has declined, possibly due to volume depletion (inadequate oral intake and diuretics). Will check urine sodium, PT-INR, alpha-fetoprotein, stool occult blood. Recommend gently hydration. Start rifaximin. Will follow. Status: Acute
[2018-05-01] MEDS: Metoprolol Succinate 100 mg XL Tab PO SCH ×2 (11:20→11:27)
[2018-05-01] MEDS: Pantoprazole 40 mg EC Tab PO SCH (11:21)
[2018-05-01 11:33] LABS: INR 1.1; PROTHROMBIN TIME 12.4 SECONDS (9.7-12.2)
[2018-05-01 18:51] LABS: IRON 103 ug/dL (37-170)
[2018-05-01 19:01] LABS: % IRON SATURATION 27 (20-55); TOTAL IRON BINDING CAPACITY 388 ug/dL (250-450)
[2018-05-01 20:01] LABS: FOLATE 13.8 ng/mL
--- NOTE | 2018-05-02 03:58 | PN ---
DATE: 05/01/2018 SUBJECTIVE: The patient is an 83-year-old female. The patient was seen and examined at the bedside on 05/01/2018. Looking comfortable. No fever. No chills. No hematuria. No hematochezia. No headache. No dizziness. No chest pain. No palpitation. Abdomen is distended. PHYSICAL EXAMINATION: VITAL SIGNS: Temperature 98.7, pulse 61, respiratory rate 20, blood pressure 100/65, and pulse oximetry 96. HEENT: Head is normocephalic and atraumatic. Eyes PERRLA. Extraocular muscles intact. Conjunctivae clear. Nose patent. Mucous membranes moist. NECK: Supple. No carotid bruits. No JVD or thyromegaly. CHEST: Bilaterally symmetrical. HEART: S1 and S2 positive. LUNGS: Clear to auscultation. ABDOMEN: Soft. Bowel sounds present. No organomegaly. EXTREMITIES: No edema, no cyanosis. NEUROLOGIC: The patient is awake, alert. Moving all four extremities. No focal deficits. LABORATORY DATA: White blood cells 5.8, hemoglobin 13.4, hematocrit 38.7, and platelets 76. Sodium 138, potassium 4.2, BUN 45, creatinine 1.3, and glucose 172. ASSESSMENT AND PLAN: Ms. Jackie Pena is an 83-year-old lady with thrombocytopenia, renal insufficiency, hyperglycemia. Came with hepatic encephalopathy. The patient has history of hepatitis C positive, cirrhosis and two recent admissions of exacerbation of hepatic encephalopathy. The patient again came with confusion with elevated ammonia level. She has no bleeding or obvious source of infection; however, renal function test has been declined, possibly due to volume depletion. Gastroenterology is on the case. Recommended gentle hydration. They started rifaximin. History of noncompliance, history of hypertension, diabetes mellitus, hypothyroidism. Repeat labs. Continue present treatment. Fix electrolytes. We will follow up. Yulia Dominguez MD
[2018-05-02] MEDS: Levothyroxine 125 MCG TAB PO SCH (06:00)
[2018-05-02] MEDS: (Novolog) Insulin Aspart, Recombinant 100 u/ml 10 ml vial SC SCH ×4 (09:08→21:28)
--- NOTE | 2018-05-02 10:08 | CP.PCM.PN ---
Subjective - Date & Time of Evaluation Date of Evaluation: 05/02/18 Time of Evaluation: 10:06 - Subjective Subjective: Patient complains of feeling nauseated, but she denies having vomiting, abdominal pain, diarrhea and rectal bleeding. Her speech is clearer but remains slow. Objective - Vital Signs/Intake and Output Vital Signs (last 24 hours): Temp Pulse Resp BP Pulse Ox 98.5 F 63 20 133/78 96 05/02/18 07:30 05/02/18 07:30 05/02/18 07:30 05/02/18 07:30 05/02/18 07:30 Intake and Output: 05/02/18 05/02/18 06:59 18:59 Intake Total 200 200 Output Total 200 Balance 0 200 - Medications Medications: Current Medications Amlodipine Besylate (Norvasc) 5 mg PO DAILY [facility] Last Admin: 05/01/18 11:25 Dose: Not Given Dextrose (Dextrose 50% Inj) 0 ml IV STAT PRN; Protocol PRN Reason: Hypoglycemia Protocol Dextrose (Glutose 15) 0 gm PO ONCE PRN; Protocol PRN Reason: Hypoglycemia Protocol Furosemide (Lasix) 40 mg PO DAILY [facility] Last Admin: 05/01/18 11:21 Dose: 40 mg Glucagon (Glucagen Diagnostic Kit) 0 mg IM STAT PRN; Protocol PRN Reason: Hypoglycemia Protocol Dextrose (Dextrose 5% In Water 1000 Ml) 1,000 mls @ 0 mls/hr IV .Q0M PRN; Protocol PRN Reason: Hypoglycemia Protocol Insulin Aspart (Novolog) 0 unit SC ACHS [facility]; Protocol Last Admin: 05/02/18 09:08 Dose: 1 units Lactulose (Enulose) 20 gm PO BID [facility] Last Admin: 05/01/18 17:47 Dose: 20 gm Levothyroxine Sodium (Synthroid) 125 mcg PO DAILY@0630 [facility] Last Admin: 05/02/18 06:00 Dose: 125 mcg Metformin [facility] (Glucophage) [facility] Last Admin: 05/02/18 09:08 Dose: 500 mg Metoprolol Succinate (Toprol Xl) 200 mg PO DAILY [facility] Last Admin: 05/01/18 11:27 Dose: Not Given Ondansetron HCl (Zofran Inj) 4 mg IVP Q6 PRN PRN Reason: Nausea/Vomiting Pantoprazole Sodium (Protonix Ec Tab) 40 mg PO DAILY [facility] Last Admin: 05/01/18 11:21 Dose: 40 mg Rifaximin (Xifaxan) 550 mg PO BID [facility]; Protocol Last Admin: 05/01/18 17:47 Dose: 550 mg Sitagliptin Phosphate (Januvia) 50 mg PO DAILY [facility] Last Admin: 05/01/18 11:23 Dose: Not Given Spironolactone (Aldactone) 25 mg PO DAILY [facility] - Labs Labs: 05/01/18 06:47 05/01/18 06:47 PT 12.4 SECONDS (9.7-12.2) H 05/01/18 11:20 INR 1.1 05/01/18 11:20 - Constitutional Appears: No Acute Distress - Head Exam Head Exam: ATRAUMATIC, NORMOCEPHALIC - Eye Exam Eye Exam: EOMI, PERRL - Neck Exam Neck Exam: absent: Lymphadenopathy, Thyromegaly - Respiratory Exam Respiratory Exam: NORMAL BREATHING PATTERN. absent: Rales, Rhonchi, Wheezes - Cardiovascular Exam Cardiovascular Exam: REGULAR RHYTHM, +S1, +S2. absent: Gallop, Rubs, Murmur - GI/Abdominal Exam GI & Abdominal Exam: Soft, Normal Bowel Sounds. absent: Tenderness, Mass, Organomegaly - Rectal Exam Rectal Exam: Deferred - Extremities Exam Extremities Exam: absent: Calf Tenderness, Pedal Edema Assessment and Plan (1) Hepatic encephalopathy Assessment & Plan: Patient complains of nausea this morning. The ammonia level when repeated yesterday at 11:20 came down to 74 from 169 six hours earlier. The HGB has been stable, and stool occult blood is pending. Urine sodium is 119, which is not suggestive of hepatorenal syndrome. Will check repeat labs. Continue lactulose and rifaximin. Status: Acute
[2018-05-02] MEDS: Pantoprazole 40 mg EC Tab PO SCH (10:33)
[2018-05-02] MEDS: Metoprolol Succinate 100 mg XL Tab PO SCH (10:34)
[2018-05-02 11:18] LABS: BASO % 0.4 % (0.0-2.0); EOS # 0.1 K/uL (0.0-0.7); EOS % 1.2 % (0.0-4.0); HEMOGLOBIN 13.1 g/dL (11.0-16.0); LYMPH # 1.5 K/uL (1.0-4.3); LYMPH % 31.3 % (20.0-40.0); MEAN CELL VOLUME 95.5 fL (81.0-99.0); MEAN CORPUSCULAR HEMOGLOBIN 32.4 pg (27.0-31.0); MEAN PLATELET VOLUME 10.3 fL (7.2-11.7); MONO # 0.4 K/uL (0.0-0.8); MONO % 8.9 % (0.0-10.0); NEUT # 2.7 K/uL (1.8-7.0); NEUT % 58.2 % (50.0-75.0); NRBC % 0.2 % (0.0-2.0); RBC 4.03 Mil/uL (3.80-5.20); RED CELL DISTRIBUTION WIDTH 14.6 % (11.5-14.5); WHITE BLOOD COUNT 4.7 K/uL (4.8-10.8)
[2018-05-02 11:33] LABS: ALB/GLOB RATIO 0.7 (1.0-2.1); ALBUMIN 3.9 g/dL (3.5-5.0)
--- NOTE | 2018-05-03 01:58 | PN ---
DATE: 05/02/2018 SUBJECTIVE: The patient is an 83-year-old female. The patient was seen and examined on 05/02/2018. Looking comfortable. Awake and alert, but oriented x2 only. No fever. No chills. No headache. No dizziness. No chest pain. No palpitation. Sometimes feeling nauseous. Data Compiler is on the case. PHYSICAL EXAMINATION: VITAL SIGNS: Temperature 98.5, pulse 63, respiratory rate 20, blood pressure 133/78, and pulse oximetry 96. HEENT: Head: Normocephalic and atraumatic. Eyes: PERRLA. Extraocular muscles intact. Conjunctivae clear. Nose patent. NECK: Supple. No carotid bruits. No JVD or thyromegaly. CHEST: Bilaterally symmetrical. HEART: S1 and S2 positive. LUNGS: Clear to auscultation. ABDOMEN: Soft. Bowel sounds present. No organomegaly. EXTREMITIES: No edema, no cyanosis. NEUROLOGIC: The patient is awake and alert. Moving all four extremities. No focal deficits. MEDICATIONS: Norvasc, dextrose, Lasix, Glucagon, NovoLog, Lactulose, Synthroid, metformin, Zofran, rifaximin, Januvia, and Aldactone. LABORATORY DATA: White blood cells 5.8, hemoglobin 13.4, hematocrit 38.7, and platelets 73. Sodium 138, potassium 4.2, BUN 45, creatinine 1.3, and glucose 172. ASSESSMENT AND PLAN: Ms. Jackie Pena is an 83-year-old lady with thrombocytopenia, renal insufficiency, and hyperglycemia. Has hepatic encephalopathy. The patient is still complaining of nausea. Ammonia level repeated yesterday came down to 74 from 159. The patient's stable stool occult blood is pending. This looks like the patient does not have hepatorenal syndrome yet. Continue lactulose and rifaximin. Discussion done with the patient's nursing staff. The patient is noncompliant, urged to be compliant. Electrolyte imbalance, history of hepatitis C positive, cirrhosis of the liver, had couple of admissions for hepatic encephalopathy. Gastrointestinal and deep venous prophylaxis. Repeat labs. We will follow up. Yulia Dominguez MD
[2018-05-03] MEDS: Levothyroxine 125 MCG TAB PO SCH (05:53)
[2018-05-03 08:07] LABS: BASO % 0.6 % (0.0-2.0); EOS # 0.1 K/uL (0.0-0.7); EOS % 1.6 % (0.0-4.0); LYMPH # 1.3 K/uL (1.0-4.3); MEAN CELL VOLUME 94.1 fL (81.0-99.0); MEAN CORPUSCULAR HEMOGLOBIN 32.5 pg (27.0-31.0); MEAN CORPUSCULAR HGB CONC 34.5 g/dL (33.0-37.0); MEAN PLATELET VOLUME 10.4 fL (7.2-11.7); MONO # 0.4 K/uL (0.0-0.8); MONO % 8.3 % (0.0-10.0); NEUT # 3.3 K/uL (1.8-7.0); NEUT % 64.5 % (50.0-75.0); NRBC % 0.1 % (0.0-2.0); RBC 3.7 Mil/uL (3.80-5.20); RED CELL DISTRIBUTION WIDTH 14.5 % (11.5-14.5)
[2018-05-03] MEDS: (Novolog) Insulin Aspart, Recombinant 100 u/ml 10 ml vial SC SCH ×4 (08:15→21:43)
[2018-05-03 08:17] LABS: ALB/GLOB RATIO 0.6 (1.0-2.1); ALBUMIN 3.2 g/dL (3.5-5.0); CALCIUM 8.7 mg/dl (8.6-10.4)
--- NOTE | 2018-05-03 08:43 | CP.PCM.PN ---
Subjective - Date & Time of Evaluation Date of Evaluation: 05/03/18 Time of Evaluation: 08:37 - Subjective Subjective: Patient remains confused but is able to answer simple questions with yes or no. Objective - Vital Signs/Intake and Output Vital Signs (last 24 hours): Temp Pulse Resp BP Pulse Ox 97.5 F L 60 20 130/75 96 05/02/18 23:22 05/02/18 23:22 05/02/18 23:22 05/02/18 23:22 05/02/18 23:22 Intake and Output: 05/03/18 05/03/18 06:59 18:59 Intake Total 350 Output Total 400 Balance -50 - Medications Medications: Current Medications Amlodipine Besylate (Norvasc) 5 mg PO DAILY [facility] Last Admin: 05/02/18 10:35 Dose: 5 mg Dextrose (Dextrose 50% Inj) 0 ml IV STAT PRN; Protocol PRN Reason: Hypoglycemia Protocol Dextrose (Glutose 15) 0 gm PO ONCE PRN; Protocol PRN Reason: Hypoglycemia Protocol Furosemide (Lasix) 20 mg PO DAILY [facility] Last Admin: 05/02/18 10:38 Dose: 20 mg Glucagon (Glucagen Diagnostic Kit) 0 mg IM STAT PRN; Protocol PRN Reason: Hypoglycemia Protocol Dextrose (Dextrose 5% In Water 1000 Ml) 1,000 mls @ 0 mls/hr IV .Q0M PRN; Protocol PRN Reason: Hypoglycemia Protocol Sodium Chloride (Sodium Chloride 0.45%) 1,000 mls @ 30 mls/hr IV .Q24H [facility] Insulin Aspart (Novolog) 0 unit SC ACHS [facility]; Protocol Last Admin: 05/03/18 08:15 Dose: 1 units Lactulose (Enulose) 20 gm PO BID [facility] Last Admin: 05/02/18 18:00 Dose: Not Given Levothyroxine Sodium (Synthroid) 125 mcg PO DAILY@0630 [facility] Last Admin: 05/03/18 05:53 Dose: 125 mcg [facility] ([facility]) [facility] Last Admin: 05/03/18 08:15 Dose: 500 mg Metoprolol Succinate (Toprol Xl) 200 mg PO DAILY [facility] Last Admin: 05/02/18 10:34 Dose: 200 mg Ondansetron HCl (Zofran Inj) 4 mg IVP Q6 PRN PRN Reason: Nausea/Vomiting Last Admin: 05/02/18 17:15 Dose: 4 mg Pantoprazole Sodium (Protonix Ec Tab) 40 mg PO DAILY [facility] Last Admin: 05/02/18 10:33 Dose: 40 mg Rifaximin (Xifaxan) 550 mg PO BID [facility]; Protocol Last Admin: 05/02/18 17:15 Dose: 550 mg Sitagliptin Phosphate (Januvia) 50 mg PO DAILY [facility] Last Admin: 05/02/18 10:33 Dose: 50 mg Spironolactone (Aldactone) 25 mg PO DAILY [facility] Last Admin: 05/02/18 10:36 Dose: 25 mg - Labs Labs: 05/03/18 07:51 05/03/18 07:51 PT 12.4 SECONDS (9.7-12.2) H 05/01/18 11:20 INR 1.1 05/01/18 11:20 - Constitutional Appears: No Acute Distress - Head Exam Head Exam: ATRAUMATIC, NORMOCEPHALIC - Neck Exam Neck Exam: absent: Lymphadenopathy, Thyromegaly - Respiratory Exam Respiratory Exam: NORMAL BREATHING PATTERN. absent: Rales, Rhonchi, Wheezes - Cardiovascular Exam Cardiovascular Exam: REGULAR RHYTHM, +S1, +S2. absent: Gallop, Rubs, Murmur - GI/Abdominal Exam GI & Abdominal Exam: Soft, Normal Bowel Sounds. absent: Tenderness, Mass, Organomegaly - Rectal Exam Rectal Exam: Deferred - Extremities Exam Extremities Exam: absent: Calf Tenderness, Pedal Edema Assessment and Plan (1) Hepatic encephalopathy Assessment & Plan: Patient's encephalopathy has not changed significantly. The renal function has worsened slightly since yesterday: eGFR 33, down from 39. Will try hydration with 0.45% NS and increase dose of lactulose. Status: Acute
[2018-05-03] MEDS: Pantoprazole 40 mg EC Tab PO SCH (10:07)
[2018-05-03] MEDS: Sodium Chloride 0.45% 1,000 ML IV SCH (10:07)
[2018-05-03] MEDS: Metoprolol Succinate 100 mg XL Tab PO SCH (10:07)
--- NOTE | 2018-05-03 11:50 | US ---
Date of service: 05/03/2018 HISTORY: Portal vein or hepatic vein thrombosis COMPARISON: None. TECHNIQUE: Sonographic evaluation of the abdomen. FINDINGS: LIVER: Measures 14.2 cm. Diffusely increased echogenicity of the liver parenchyma. Consistent with fatty infiltration. Heterogeneous echotexture consistent with hepatocellular disease. Nodular contour. Likely hepatic cirrhosis. No intrahepatic biliary ductal dilatation. Normal hepatopetal portal venous flow. No evidence of portal venous thrombosis. No evidence of hepatic venous thrombosis. GALLBLADDER: Status post cholecystectomy COMMON BILE DUCT: Measures 6 mm. No stones. No dilatation. PANCREAS: Limited visualization of pancreas. RIGHT KIDNEY: Measures 11.2cm. Normal echogenicity. No calculus, mass, or hydronephrosis. LEFT KIDNEY: Measures 11.0cm. Normal echogenicity. No calculus, mass, or hydronephrosis. SPLEEN: Mild hepatomegaly. The spleen measures 14.2 cm in greatest dimension. No focal mass. AORTA: No aneurysmal dilatation. IVC: Unremarkable IVC. OTHER FINDINGS: None. IMPRESSION: No evidence of portal venous thrombosis or hepatic venous thrombosis. Normal hepatopetal portal venous flow. Findings consistent with hepatic cirrhosis. Status post cholecystectomy. Mild splenomegaly.
[2018-05-03] MEDS ORDERED: Magnesium Sulfate 1 gm in D5W 1 GM/100 ML BAG IVPB ONE (23:25)
--- NOTE | 2018-05-04 02:56 | PN ---
DATE: 05/03/2018 SUBJECTIVE: The patient is an 83-year-old female. The patient is seen and examined at the bedside on 05/03/2018. The patient is looking comfortable. No fever. No chills. No hematuria or hematochezia. No headache. No dizziness. No chest pain. No palpitations but still confused. She is able to answer a few questions, yes or no, oriented x1 only. PHYSICAL EXAMINATION: VITAL SIGNS: Temperature 97.5, pulse 60, respiratory rate 20, blood pressure 130/75, pulse oximetry 96%. HEENT: Head: Normocephalic, atraumatic. Eyes: PERRLA. Extraocular muscles intact. Conjunctivae clear. Nose patent. Mucous membranes moist. NECK: Supple. No carotid bruit. No JVD or thyromegaly. CHEST: Bilaterally symmetrical. HEART: S1, S2 positive. LUNGS: Clear to auscultation. ABDOMEN: Soft. Bowel sounds present. No organomegaly. EXTREMITIES: No edema. No cyanosis. NEUROLOGICAL: The patient awake and alert. Moving all four extremities. No focal deficits. MEDICATIONS: Dextrose, Lasix, Glucophage, NS amylose, levothyroxine, metformin, metoprolol, Zofran, Protonix, rifaximin, Januvia, spironolactone. LABORATORY DATA: White blood cell 5, hemoglobin 12, hematocrit 34.8, platelets of 59. Sodium 133, potassium 4.1, BUN 35, creatinine 1.5, glucose 203. ASSESSMENT AND PLAN: Mrs. Jackie Pena is an 83-year-old lady with thrombocytopenia, renal insufficiency, hyperglycemia, has hepatic encephalopathy. The patient's encephalopathy has not changed significantly. The renal function has worsened slightly. Since yesterday estimated glomerular filtration rate is 33 down from 39. Getting hydration with 0.45 normal saline and clear dose of lactulose. We will call consult with the Nephrology and Neurology. Seen by Dr. Nir Cho. Abdominal ultrasound is done according to Dr. Travis Hill. No evidence of portal venous thrombosis or hepatic venous thrombosis. Normal hepatoportal venous flow. Findings consistent with hepatic cirrhosis, status post cholecystectomy, mild splenomegaly. Discussion done with nursing staff. Repeat labs. We will follow up. Yulia Dominguez MD [facility] # [id number]
[2018-05-04] MEDS: Levothyroxine 125 MCG TAB PO SCH (06:19)
[2018-05-04 07:23] LABS: BASO % 0.6 % (0.0-2.0); EOS # 0.1 K/uL (0.0-0.7); EOS % 2.3 % (0.0-4.0); HEMOGLOBIN 12.6 g/dL (11.0-16.0); LYMPH # 1.8 K/uL (1.0-4.3); LYMPH % 33.3 % (20.0-40.0); MEAN CELL VOLUME 94.8 fL (81.0-99.0); MEAN CORPUSCULAR HEMOGLOBIN 32.4 pg (27.0-31.0); MEAN CORPUSCULAR HGB CONC 34.2 g/dL (33.0-37.0); MEAN PLATELET VOLUME 10.2 fL (7.2-11.7); MONO # 0.6 K/uL (0.0-0.8); MONO % 10.8 % (0.0-10.0); NEUT # 2.9 K/uL (1.8-7.0); NRBC % 0.1 % (0.0-2.0); RBC 3.87 Mil/uL (3.80-5.20); RED CELL DISTRIBUTION WIDTH 14.6 % (11.5-14.5); WHITE BLOOD COUNT 5.4 K/uL (4.8-10.8)
[2018-05-04] MEDS: (Novolog) Insulin Aspart, Recombinant 100 u/ml 10 ml vial SC SCH ×4 (07:48→21:44)
[2018-05-04 08:08] LABS: ALB/GLOB RATIO 0.7 (1.0-2.1); ALBUMIN 3.3 g/dL (3.5-5.0); CALCIUM 8.7 mg/dl (8.6-10.4)
[2018-05-04] MEDS: Sodium Chloride 0.45% 1,000 ML IV SCH (08:58)
--- NOTE | 2018-05-04 09:33 | CP.PCM.CON ---
<KavinKeon - Last Filed: 05/04/18 18:56> History of Present Illness - History of Present Illness History of Present Illness: Nephro consult note: Kavin PGY - 2 Reason for consult: LESLEY, possible Hepatorenal Syndrome 83 F with pertinent medical history of DM, HTN, and Hep C (recently diagnosed, untreated) presented to [facility] with altered mental status. Patient was recently admitted 3 other times in the past month for similar complaints. Patient was found to have hyperammoninemia and was dosed with lactulose on previous admissions. On this admission, patient was also found to have LESLEY with initial creatinine of 1.7 (baseline of 1.0). Information is gathered from chart review, as patient is poor historian. Review of Systems: 12 point ROS elicited but unobtainable 2/2 mental status. PMHx: DM, HTN - Denies CHF/any heart problems, denies history of liver dysfunction Surgeries: Prior surgery which she cannot remember (points to abdomen) Allergies: NKDA Medications: Reviewed, as per MAR Social: Denies current EtOH, former smoker, denies illicits. Retired, lives alone in senior living community. Family Hx: Unknown Past Patient History - Infectious Disease Hx of Infectious Diseases: None - Past Medical History & Family History Past Medical History?: Yes - Past Social History Smoking Status: Never Smoked - CARDIAC Hx Hypertension: Yes - PULMONARY Hx Respiratory Disorders: No - NEUROLOGICAL Hx Neurological Disorder: Yes Hx Vertigo: Yes (does not take meclizine prescribed) - HEENT Hx HEENT Problems: No - RENAL Hx Chronic Kidney Disease: No - ENDOCRINE/METABOLIC Hx Hypothyroidism: Yes - HEMATOLOGICAL/ONCOLOGICAL Hx Blood Disorders: No - INTEGUMENTARY Hx Dermatological Problems: No - MUSCULOSKELETAL/RHEUMATOLOGICAL Hx Musculoskeletal Disorders: Yes Hx Falls: No Other/Comment: ambulates with cane - GASTROINTESTINAL Hx Gastrointestinal Disorders: Yes Hx Gastroesophageal Reflux: Yes - GENITOURINARY/GYNECOLOGICAL Hx Genitourinary Disorders: No - PSYCHIATRIC Hx Psychophysiologic Disorder: No Hx Substance Use: No - SURGICAL HISTORY Hx Surgeries: No - ANESTHESIA Hx Anesthesia: No Meds Allergies/Adverse Reactions: Allergies Allergy/AdvReac Type Severity Reaction Status Date / Time No Known Allergies Allergy Verified 01/11/18 14:34 - Medications Medications: Current Medications Amlodipine Besylate (Norvasc) 5 mg PO DAILY [facility] Last Admin: 05/03/18 10:06 Dose: 5 mg Dextrose (Dextrose 50% Inj) 0 ml IV STAT PRN; Protocol PRN Reason: Hypoglycemia Protocol Dextrose (Glutose 15) 0 gm PO ONCE PRN; Protocol PRN Reason: Hypoglycemia Protocol Furosemide (Lasix) 20 mg PO DAILY [facility] Last Admin: 05/03/18 10:08 Dose: 20 mg Glucagon (Glucagen Diagnostic Kit) 0 mg IM STAT PRN; Protocol PRN Reason: Hypoglycemia Protocol Dextrose (Dextrose 5% In Water 1000 Ml) 1,000 mls @ 0 mls/hr IV .Q0M PRN; Protocol PRN Reason: Hypoglycemia Protocol Sodium Chloride (Sodium Chloride 0.45%) 1,000 mls @ 30 mls/hr IV .Q24H [facility] Last Admin: 05/04/18 08:58 Dose: Not Given Insulin Aspart (Novolog) 0 unit SC ACHS [facility]; Protocol Last Admin: 05/04/18 07:48 Dose: 2 units Lactulose (Enulose) 20 gm PO TID [facility] Last Admin: 05/03/18 17:31 Dose: 20 gm Levothyroxine Sodium (Synthroid) 125 mcg PO DAILY@0630 [facility] Last Admin: 05/04/18 06:19 Dose: 125 mcg Metformin HCl (Glucophage) 500 mg PO BIDCOX BRANSON Last Admin: 05/04/18 07:48 Dose: 500 mg Metoprolol Succinate (Toprol Xl) 200 mg PO DAILY [facility] Last Admin: 05/03/18 10:07 Dose: 200 mg Ondansetron HCl (Zofran Inj) 4 mg IVP Q6 PRN PRN Reason: Nausea/Vomiting Last Admin: 05/02/18 17:15 Dose: 4 mg Pantoprazole Sodium (Protonix Ec Tab) 40 mg PO DAILY [facility] Last Admin: 05/03/18 10:07 Dose: 40 mg Rifaximin (Xifaxan) 550 mg PO BID [facility]; Protocol Last Admin: 05/03/18 17:31 Dose: 550 mg Sitagliptin Phosphate (Januvia) 50 mg PO DAILY [facility] Last Admin: 05/03/18 10:07 Dose: 50 mg Spironolactone (Aldactone) 25 mg PO DAILY [facility] Last Admin: 05/03/18 10:07 Dose: 25 mg Physical Exam - Constitutional Appears: Non-toxic, Chronically Ill - Head Exam Head Exam: ATRAUMATIC, NORMAL INSPECTION, NORMOCEPHALIC - Eye Exam Eye Exam: EOMI, PERRL, Scleral icterus Pupil Exam: NORMAL ACCOMODATION, PERRL - ENT Exam ENT Exam: Mucous Membranes Moist, Normal Exam - Neck Exam Neck exam: Positive for: Normal Inspection - Respiratory Exam Respiratory Exam: Clear to Auscultation Bilateral, NORMAL BREATHING PATTERN - Cardiovascular Exam Cardiovascular Exam: REGULAR RHYTHM - GI/Abdominal Exam GI & Abdominal Exam: Distended, Normal Bowel Sounds, Soft. absent: Tenderness - Extremities Exam Extremities exam: Positive for: normal inspection - Back Exam Back exam: NORMAL INSPECTION - Neurological Exam Neurological exam: Alert, CN II-XII Intact, Normal Gait, Oriented x3, Reflexes Normal - Psychiatric Exam Psychiatric exam: Normal Affect, Normal Mood - Skin Skin Exam: Dry, Intact, Normal Color, Warm Results - Vital Signs Recent Vital Signs: Last Vital Signs Temp 97.5 F L 05/04/18 07:30 Pulse 56 L 05/04/18 07:30 Resp 20 05/04/18 07:30 BP 116/52 L 05/04/18 07:30 Pulse Ox 98 05/04/18 07:30 - Labs Result Diagrams: 05/04/18 07:11 05/04/18 07:11 Labs: Laboratory Results - last 24 hr 05/03/18 05/03/18 05/03/18 10:26 11:25 11:27 WBC RBC Hgb Hct MCV MCH MCHC RDW Plt Count MPV Neut % (Auto) Lymph % (Auto) [place] % (Auto) Eos % (Auto) Baso % (Auto) Neut # (Auto) Lymph # (Auto) [place] # (Auto) Eos # (Auto) Baso # (Auto) Sodium Potassium Chloride Carbon Dioxide Anion Gap BUN Creatinine Est GFR ( Amer) Est GFR (Non-Af Amer) POC Glucose (mg/dL) 156 H 262 H Random Glucose Calcium Phosphorus Magnesium Total Bilirubin AST ALT Alkaline Phosphatase Ammonia 67 H D Total Protein Albumin Globulin Albumin/Globulin Ratio 05/03/18 05/03/18 05/04/18 16:31 21:17 02:11 WBC RBC Hgb Hct MCV MCH MCHC RDW Plt Count MPV Neut % (Auto) Lymph % (Auto) [place] % (Auto) Eos % (Auto) Baso % (Auto) Neut # (Auto) Lymph # (Auto) [place] # (Auto) Eos # (Auto) Baso # (Auto) Sodium Potassium Chloride Carbon Dioxide Anion Gap BUN Creatinine Est GFR ( Amer) Est GFR (Non-Af Amer) POC Glucose (mg/dL) 313 H 374 H 231 H Random Glucose Calcium Phosphorus Magnesium Total Bilirubin AST ALT Alkaline Phosphatase Ammonia Total Protein Albumin Globulin Albumin/Globulin Ratio 05/04/18 05/04/18 05/04/18 07:11 07:11 07:16 WBC 5.4 RBC 3.87 Hgb 12.6 Hct 36.7 MCV 94.8 MCH 32.4 H MCHC 34.2 RDW 14.6 H Plt Count 60 L MPV 10.2 Neut % (Auto) 53.0 Lymph % (Auto) 33.3 [place] % (Auto) 10.8 H Eos % (Auto) 2.3 Baso % (Auto) 0.6 Neut # (Auto) 2.9 Lymph # (Auto) 1.8 [place] # (Auto) 0.6 Eos # (Auto) 0.1 Baso # (Auto) 0.0 Sodium 133 Potassium 3.9 Chloride 99 Carbon Dioxide 22 Anion Gap 16 BUN 37 H Creatinine 1.6 H Est GFR ( Amer) 37 Est GFR (Non-Af Amer) 31 POC Glucose (mg/dL) 213 H Random Glucose 200 H Calcium 8.7 Phosphorus 3.4 Magnesium 1.6 Total Bilirubin 1.3 AST 95 H ALT 70 H Alkaline Phosphatase 133 H Ammonia Total Protein 8.3 Albumin 3.3 L Globulin 5.0 H Albumin/Globulin Ratio 0.7 L Assessment & Plan - Assessment and Plan (Free Text) Assessment: 83 year old female with pertinent medical history of hep C presenting for altered menal status, nephrology on consult for LESLEY Plan Urine sodium was previously obtained, but patient had diuretic use, which was held today. Patient renal function is improving. She was found to have cirrhotic liver on ultrasound of abdomen, but her albumin level is not significantly low. Patient has mild trace edema in bilateral LE with obvious but not marked distension. At this time, patient's LESLEY is likely due to pre- renal etiology/hypoperfusion of kidneys due to third spacing of fluid - but cannot rule out hepatorenal syndrome until patient is adequately volume challenged - Neurology and Gastroenterology consultations noted and appreciated - Hold diuretics - Obtain urine lytes, urine osm - Consider holding lactulose if patient is responding well to Xifaxan to avoid loss of volume - Give albumin in NS to fluid resuscitate and bring fluid intravascularly We will continue to follow closely, thank you for this consultation <Umer Chavez - Last Filed: 05/05/18 05:18> Meds - Medications Medications: Current Medications Amlodipine Besylate (Norvasc) 5 mg PO DAILY [facility] Last Admin: 05/04/18 10:27 Dose: Not Given Dextrose (Dextrose 50% Inj) 0 ml IV STAT PRN; Protocol PRN Reason: Hypoglycemia Protocol Dextrose (Glutose 15) 0 gm PO ONCE PRN; Protocol PRN Reason: Hypoglycemia Protocol Furosemide (Lasix) 20 mg PO DAILY [facility] Last Admin: 05/04/18 10:27 Dose: Not Given Glucagon (Glucagen Diagnostic Kit) 0 mg IM STAT PRN; Protocol PRN Reason: Hypoglycemia Protocol Dextrose (Dextrose 5% In Water 1000 Ml) 1,000 mls @ 0 mls/hr IV .Q0M PRN; Protocol PRN Reason: Hypoglycemia Protocol Sodium Chloride (Sodium Chloride 0.9%) 1,000 mls @ 100 mls/hr IV .Q10H [facility] Stop: 05/05/18 08:59 Last Admin: 05/05/18 00:00 Dose: 100 mls/hr Insulin Aspart (Novolog) 0 unit SC ACHS [facility]; Protocol Last Admin: 05/04/18 21:44 Dose: Not Given Lactulose (Enulose) 20 gm PO TID [facility] Last Admin: 05/04/18 18:00 Dose: 20 gm Levothyroxine Sodium (Synthroid) 125 mcg PO DAILY@0630 [facility] Last Admin: 05/04/18 06:19 Dose: 125 mcg Metformin HCl (Glucophage) 500 mg PO BIDCOX [facility] Last Admin: 05/04/18 18:01 Dose: 500 mg Metoprolol Succinate (Toprol Xl) 200 mg PO DAILY [facility] Last Admin: 05/04/18 10:28 Dose: Not Given Ondansetron HCl (Zofran Inj) 4 mg IVP Q6 PRN PRN Reason: Nausea/Vomiting Last Admin: 05/04/18 10:31 Dose: 4 mg Pantoprazole Sodium (Protonix Ec Tab) 40 mg PO DAILY [facility] Last Admin: 05/04/18 10:30 Dose: 40 mg Rifaximin (Xifaxan) 550 mg PO BID [facility]; Protocol Last Admin: 05/04/18 18:01 Dose: 550 mg Sitagliptin Phosphate (Januvia) 50 mg PO DAILY [facility] Last Admin: 05/04/18 10:41 Dose: 50 mg Spironolactone (Aldactone) 25 mg PO DAILY [facility] Last Admin: 05/04/18 10:27 Dose: Not Given Results - Vital Signs Recent Vital Signs: Last Vital Signs Temp 97.9 F 05/04/18 23:59 Pulse 81 05/04/18 23:59 Resp 20 05/04/18 23:59 BP 101/64 05/04/18 23:59 Pulse Ox 98 05/04/18 23:59 - Labs Result Diagrams: 05/04/18 07:11 05/04/18 07:11 Labs: Laboratory Results - last 24 hr 05/04/18 05/04/18 05/04/18 07:11 07:11 07:16 WBC 5.4 RBC 3.87 Hgb 12.6 Hct 36.7 MCV 94.8 MCH 32.4 H MCHC 34.2 RDW 14.6 H Plt Count 60 L MPV 10.2 Neut % (Auto) 53.0 Lymph % (Auto) 33.3 [place] % (Auto) 10.8 H Eos % (Auto) 2.3 Baso % (Auto) 0.6 Neut # (Auto) 2.9 Lymph # (Auto) 1.8 [place] # (Auto) 0.6 Eos # (Auto) 0.1 Baso # (Auto) 0.0 Sodium 133 Potassium 3.9 Chloride 99 Carbon Dioxide 22 Anion Gap 16 BUN 37 H Creatinine 1.6 H Est GFR ( Amer) 37 Est GFR (Non-Af Amer) 31 POC Glucose (mg/dL) 213 H Random Glucose 200 H Calcium 8.7 Phosphorus 3.4 Magnesium 1.6 Total Bilirubin 1.3 AST 95 H ALT 70 H Alkaline Phosphatase 133 H Total Protein 8.3 Albumin 3.3 L Globulin 5.0 H Albumin/Globulin Ratio 0.7 L Urine Osmolality Ur Random Creatinine Ur Random Sodium 05/04/18 05/04/18 05/04/18 11:00 16:20 21:19 WBC RBC Hgb Hct MCV MCH MCHC RDW Plt Count MPV Neut % (Auto) Lymph % (Auto) [place] % (Auto) Eos % (Auto) Baso % (Auto) Neut # (Auto) Lymph # (Auto) [place] # (Auto) Eos # (Auto) Baso # (Auto) Sodium Potassium Chloride Carbon Dioxide Anion Gap BUN Creatinine Est GFR ( Amer) Est GFR (Non-Af Amer) POC Glucose (mg/dL) 321 H 273 H 270 H Random Glucose Calcium Phosphorus Magnesium Total Bilirubin AST ALT Alkaline Phosphatase Total Protein Albumin Globulin Albumin/Globulin Ratio Urine Osmolality Ur Random Creatinine Ur Random Sodium 05/04/18 23:16 WBC RBC Hgb Hct MCV MCH MCHC RDW Plt Count MPV Neut % (Auto) Lymph % (Auto) [place] % (Auto) Eos % (Auto) Baso % (Auto) Neut # (Auto) Lymph # (Auto) [place] # (Auto) Eos # (Auto) Baso # (Auto) Sodium Potassium Chloride Carbon Dioxide Anion Gap BUN Creatinine Est GFR ( Amer) Est GFR (Non-Af Amer) POC Glucose (mg/dL) Random Glucose Calcium Phosphorus Magnesium Total Bilirubin AST ALT Alkaline Phosphatase Total Protein Albumin Globulin Albumin/Globulin Ratio Urine Osmolality 395 Ur Random Creatinine 70.5 Ur Random Sodium 47 Attending/Attestation - Attestation I have personally seen and examined this patient.: Yes I have fully participated in the care of the patient.: Yes I have reviewed all pertinent clinical information: Yes Notes (Text): Patient seen and examined; I agree with the resident's note as above with the following additions/edits: 83 yo F w/ pmh of htn, dm, untreated hep C w/ liver cirrhosis, admitted with r ecurrent hepatic encephalopathy, nephrology being consulted for acute kidney injury; Patient found to have some ascites on previous admission; had been on PO diuretics with lasix 40 mg daily and aldactone 50 mg daily at home, cut down in half on current admission; unclear if patient is having adequate PO dietary intake; she has been getting lactulose tid for hepatic encephalopathy although no diarrhea reported; Review of labs show serum creatinine increased from 1.0 on last admission to 1.7 on presentation this time; renal function showed some improvement with decreased diuretics but creatinine now back up to 1.6; On exam, patient appears to have been diuresed; not much edema appreciated; stable electrolyte status; BP has been bordeline low; would favor pre-renal cause of LESLEY; no hematuria to suggest a glomerular process in the setting of hep C; -Holding diuretics for now; -Will give volume challenge with NS at 100 cc/hr x 2L; -Repeating urine lytes (previously obtained while patient on diuretics); -checking C3, C4; -Avoid nephrotoxic agents; Thank you for this referral, we will be following closely.
[2018-05-04] MEDS: Metoprolol Succinate 100 mg XL Tab PO SCH (10:28)
[2018-05-04] MEDS: Pantoprazole 40 mg EC Tab PO SCH (10:30)
--- NOTE | 2018-05-04 10:58 | CP.PCM.PN ---
Subjective - Date & Time of Evaluation Date of Evaluation: 05/04/18 Time of Evaluation: 10:55 - Subjective Subjective: Patient complains of nausea this morning. She has not had a bowel movement so far this morning. She denies having vomiting, abdominal pain, diarrhea. She knows that she is at "[facility]," and that the month is April. Objective - Vital Signs/Intake and Output Vital Signs (last 24 hours): Temp Pulse Resp BP Pulse Ox 97.5 F L 56 L 20 90/51 L 98 05/04/18 07:30 05/04/18 07:30 05/04/18 07:30 05/04/18 10:27 05/04/18 07:30 Intake and Output: 05/04/18 05/04/18 06:59 18:59 Intake Total 960 Output Total 400 Balance 560 - Medications Medications: Current Medications Amlodipine Besylate (Norvasc) 5 mg PO DAILY [facility] Last Admin: 05/04/18 10:27 Dose: Not Given Dextrose (Dextrose 50% Inj) 0 ml IV STAT PRN; Protocol PRN Reason: Hypoglycemia Protocol Dextrose (Glutose 15) 0 gm PO ONCE PRN; Protocol PRN Reason: Hypoglycemia Protocol Furosemide (Lasix) 20 mg PO DAILY [facility] Last Admin: 05/04/18 10:27 Dose: Not Given Glucagon (Glucagen Diagnostic Kit) 0 mg IM STAT PRN; Protocol PRN Reason: Hypoglycemia Protocol Dextrose (Dextrose 5% In Water 1000 Ml) 1,000 mls @ 0 mls/hr IV .Q0M PRN; Protocol PRN Reason: Hypoglycemia Protocol Sodium Chloride (Sodium Chloride 0.45%) 1,000 mls @ 30 mls/hr IV .Q24H [facility] Last Admin: 05/04/18 08:58 Dose: Not Given Insulin Aspart (Novolog) 0 unit SC ACHS [facility]; Protocol Last Admin: 05/04/18 07:48 Dose: 2 units Lactulose (Enulose) 20 gm PO TID [facility] Last Admin: 05/04/18 10:42 Dose: 20 gm Levothyroxine Sodium (Synthroid) 125 mcg PO DAILY@0630 [facility] Last Admin: 05/04/18 06:19 Dose: 125 mcg Metformin HCl (Glucophage) 500 mg PO BIDCC [facility] Last Admin: 05/04/18 07:48 Dose: 500 mg Metoprolol Succinate (Toprol Xl) 200 mg PO DAILY [facility] Last Admin: 05/04/18 10:28 Dose: Not Given Ondansetron HCl (Zofran Inj) 4 mg IVP Q6 PRN PRN Reason: Nausea/Vomiting Last Admin: 05/04/18 10:31 Dose: 4 mg Pantoprazole Sodium (Protonix Ec Tab) 40 mg PO DAILY [facility] Last Admin: 05/04/18 10:30 Dose: 40 mg Rifaximin (Xifaxan) 550 mg PO BID [facility]; Protocol Last Admin: 05/04/18 10:42 Dose: 550 mg Sitagliptin Phosphate (Januvia) 50 mg PO DAILY [facility] Last Admin: 05/04/18 10:41 Dose: 50 mg Spironolactone (Aldactone) 25 mg PO DAILY [facility] Last Admin: 05/04/18 10:27 Dose: Not Given - Labs Labs: 05/04/18 07:11 05/04/18 07:11 PT 12.4 SECONDS (9.7-12.2) H 05/01/18 11:20 INR 1.1 05/01/18 11:20 - Constitutional Appears: No Acute Distress - Head Exam Head Exam: ATRAUMATIC, NORMOCEPHALIC - Eye Exam Eye Exam: EOMI, PERRL - Neck Exam Neck Exam: absent: Lymphadenopathy, Thyromegaly - Respiratory Exam Respiratory Exam: NORMAL BREATHING PATTERN. absent: Rales, Rhonchi, Wheezes - Cardiovascular Exam Cardiovascular Exam: REGULAR RHYTHM, +S1, +S2. absent: Gallop, Rubs, Murmur - GI/Abdominal Exam GI & Abdominal Exam: Soft, Normal Bowel Sounds. absent: Tenderness, Mass, Organomegaly - Rectal Exam Rectal Exam: Deferred - Extremities Exam Extremities Exam: absent: Calf Tenderness, Pedal Edema Assessment and Plan (1) Hepatic encephalopathy Assessment & Plan: Patient is more alert this morning. Renal function continues to decline, from eGFR of 39 on 04/30 and 05/02 to eGFR of 31 this morning. Urine sodium has been elevated, most recently 119 on 05/02. She is on low doses of furosemide (20 mg) and spironolactone (25 mg). Nephrology consult has been requested. She is currently receiving lactulose three times daily and rifaximin 550 mg twice daily. Status: Acute
[2018-05-04] MEDS ORDERED: Albumin Human 5% (12.5 gm/250 ml) IV SCH (12:45)
[2018-05-04] MEDS: Sodium Chloride 0.9% 1,000 ML IV SCH (13:40)
--- NOTE | 2018-05-04 13:45 | CP.PCM.PCO ---
Assessment & Plan - Assessment and Plan (Free Text) Assessment: neuro communication note: ams sec to metabolic encephalopathy. -keep bs btw 140-180, avoid hyperglycemic accelerations. -c/w with lactulose for hyperammonia. -thiamine 100mgpo daily. -pt./ot eval. thanks. Gabe CHARLES
--- NOTE | 2018-05-04 15:25 | CT ---
Date of service: 05/04/2018 PROCEDURE: CT HEAD WITHOUT CONTRAST. HISTORY: AMS COMPARISON: Comparison made with prior CT scan 03/12/2018 high TECHNIQUE: Axial computed tomography images were obtained through the head/brain without intravenous contrast. Radiation dose: Total exam DLP = 999.53 mGy-cm. This CT exam was performed using one or more of the following dose reduction techniques: Automated exposure control, adjustment of the mA and/or kV according to patient size, and/or use of iterative reconstruction technique. FINDINGS: HEMORRHAGE: No acute parenchymal, subarachnoid or extra-axial hemorrhage. BRAIN: Suspect minimal chronic periventricular white matter ischemic changes seen extending peripherally into the deep white matter both cerebral hemispheres.. Note that the possibility of a small hyperacute infarct cannot be completely excluded. Mild generalized volume loss. No obvious parenchymal nor extra-axial mass or collection seen on this noncontrast study. Tests recommended. Mild calcified atherosclerotic plaque both carotid siphons. VENTRICLES: No obstructive hydrocephalus. CALVARIUM: Calvarium intact. PARANASAL SINUSES: Unremarkable as visualized. No significant inflammatory changes. MASTOID AIR CELLS: Unremarkable as visualized. No inflammatory changes. OTHER FINDINGS: Note made of small central calcifications along medial margins of both globes, at insertion sites of the medial and lateral recti musculature. On there also appears to be mild bilateral exophthalmos. Correlation with thyroid function IMPRESSION: No acute intracranial hemorrhage. Minor chronic periventricular white matter ischemic changes. Mild generalized volume loss.
--- NOTE | 2018-05-04 22:48 | CON ---
DATE: 05/04/2018 HISTORY OF PRESENT ILLNESS: This is an 83-year-old female with past medical history of diabetes, hypertension, hypothyroidism, and admitted here for change in mental status. The patient recently had paracentesis on 04/19/2018 and came back with a change in mental status. PAST MEDICAL HISTORY: Diabetes, hypertension, hypothyroidism. The patient is drowsy. REVIEW OF SYSTEMS: Ten-point review of system was negative. PHYSICAL EXAMINATION: HEENT: Normocephalic, atraumatic. NECK: Supple. NEUROLOGICAL: Awake, drowsy, following simple commands. Pupils were reactive. EOM intact. Spontaneous movement of the extremities noted. Deep tendon reflexes 1+. Plantars are downgoing. Sensory appears intact. Cerebellar, gait deferred. IMPRESSION: An 83-year-old female with past medical history of diabetes, hypertension, hypothyroidism, thrombocytopenia, anemia, and increased ammonia level and cirrhosis of liver caused to evaluate the patient as change in mental status and possibly hepatic encephalopathy and continue present management. We will do the CAT scan of the head without contrast, and we will follow up. Nader Caruso MD
[2018-05-04 23:46] LABS: CREATININE, RANDOM URINE 70.5 mg/dL
[2018-05-05] MEDS: Sodium Chloride 0.9% 1,000 ML IV SCH
--- NOTE | 2018-05-05 04:12 | PN ---
DATE: 05/04/2018 SUBJECTIVE: The patient is an 83-year-old female. The patient was seen and examined at the bedside. Looking comfortable. No fever. No chills. No hematuria. No hematochezia. No headache or dizziness. No chest pain or palpitation. PHYSICAL EXAMINATION: VITAL SIGNS: Temperature 97.5, pulse 66, respiratory rate 20, blood pressure 90/51, pulse oxymetry 98. HEENT: Head: Normocephalic and atraumatic. Eyes: PERRLA. Extraocular muscles intact. Conjunctivae clear. Nose patent. NECK: Supple. No carotid bruits. No JVD or thyromegaly. CHEST: Bilateral symmetrical. HEART: S1 and S2 positive. LUNGS: Clear to auscultation. ABDOMEN: Soft. Bowel sounds present. No organomegaly. EXTREMITIES: No edema. No cyanosis. NEUROLOGIC: Awake, alert. Follows simple command. MEDICATIONS: Norvasc, dextrose, Lasix, glucagon, NS, insulin, lactulose, levothyroxine, metformin, metoprolol, rifaximin, Januvia, spironolactone. LABORATORY DATA: White blood cell is 5.4, hemoglobin 12.6, hematocrit 36.7, platelets 60. Sodium 133, potassium 3.9, BUN 37, creatinine 1.9, glucose 200. ASSESSMENT AND PLAN: Ms. Jackie Pena is an 83-year-old female with thrombocytopenia, renal insufficiency, hyperglycemia, came in with hepatic encephalopathy. The patient is more alert. Renal function of patient continued to decline. The patient had low dose of Lasix and spironolactone. Nephrology and Psychiatric consult called. Computerized axial tomography scan of the head is done. No acute intracranial hemorrhage. Minor chronic periventricular white matter ischemic changes. Mild generalized volume loss. Seen by Dr. Foreign Caruso. According to him alerted mental status was due to metabolic encephalopathy, wide hyperglycemic accelerations, continue lactulose for hyperammonemia, continue thiamine. The patient has history of hypotension, hepatitis C. The patient has cirrhosis of the liver on ultrasound of the abdomen. Last albumin level is now significantly low. According to Nephrology, the patient's urinary tract infection is likely due to prerenal, etiology is less hypoperfusion of kidney , but cannot ruled out hepatorenal syndrome until the patient is adequately volume challenged. All consultants notes were noted. Independent Trader is to hold the diuretics. Repeat labs. We will follow up. Yulia Dominguez MD MTDBrandt
[2018-05-05] MEDS: Levothyroxine 125 MCG TAB PO SCH (05:35)
[2018-05-05 07:02] LABS: BASO % 0.5 % (0.0-2.0); EOS # 0.1 K/uL (0.0-0.7); EOS % 1.6 % (0.0-4.0); HEMOGLOBIN 11.8 g/dL (11.0-16.0); LYMPH # 1.4 K/uL (1.0-4.3); LYMPH % 35.7 % (20.0-40.0); MEAN CELL VOLUME 95.1 fL (81.0-99.0); MEAN CORPUSCULAR HEMOGLOBIN 31.6 pg (27.0-31.0); MEAN CORPUSCULAR HGB CONC 33.2 g/dL (33.0-37.0); MEAN PLATELET VOLUME 10.2 fL (7.2-11.7); MONO # 0.4 K/uL (0.0-0.8); MONO % 9.4 % (0.0-10.0); NEUT % 52.8 % (50.0-75.0); NRBC % 0.1 % (0.0-2.0); RBC 3.73 Mil/uL (3.80-5.20); WHITE BLOOD COUNT 3.8 K/uL (4.8-10.8)
[2018-05-05 07:32] LABS: ALB/GLOB RATIO 0.6 (1.0-2.1); CALCIUM 8.2 mg/dl (8.6-10.4)
[2018-05-05] MEDS: (Novolog) Insulin Aspart, Recombinant 100 u/ml 10 ml vial SC SCH ×4 (08:10→21:27)
[2018-05-05] MEDS: Pantoprazole 40 mg EC Tab PO SCH (10:00)
[2018-05-05] MEDS ORDERED: Metoprolol Succinate 100 mg XL Tab PO SCH (10:52)
[2018-05-05] MEDS: Metoprolol Succinate 100 mg XL Tab PO SCH (11:14)
--- NOTE | 2018-05-05 15:14 | CP.PCM.PN ---
Subjective - Date & Time of Evaluation Date of Evaluation: 05/05/18 Time of Evaluation: 15:12 - Subjective Subjective: Mental status is unchanged. Objective - Vital Signs/Intake and Output Vital Signs (last 24 hours): Temp Pulse Resp BP Pulse Ox 97.9 F 81 56 H 133/72 20 L 05/05/18 08:45 05/04/18 23:59 05/05/18 08:45 05/05/18 08:45 05/05/18 08:45 Intake and Output: 05/05/18 05/05/18 06:59 18:59 Intake Total 2150 350 Balance 2150 350 - Medications Medications: Current Medications Amlodipine Besylate (Norvasc) 5 mg PO DAILY [facility] Last Admin: 05/05/18 10:00 Dose: 5 mg Dextrose (Dextrose 50% Inj) 0 ml IV STAT PRN; Protocol PRN Reason: Hypoglycemia Protocol Dextrose (Glutose 15) 0 gm PO ONCE PRN; Protocol PRN Reason: Hypoglycemia Protocol Furosemide (Lasix) 20 mg PO DAILY [facility] Last Admin: 05/04/18 10:27 Dose: Not Given Glucagon (Glucagen Diagnostic Kit) 0 mg IM STAT PRN; Protocol PRN Reason: Hypoglycemia Protocol Dextrose (Dextrose 5% In Water 1000 Ml) 1,000 mls @ 0 mls/hr IV .Q0M PRN; Protocol PRN Reason: Hypoglycemia Protocol Insulin Aspart (Novolog) 0 unit SC ACHS [facility]; Protocol Last Admin: 05/05/18 13:07 Dose: 2 units Lactulose (Enulose) 20 gm PO TID [facility] Last Admin: 05/05/18 13:59 Dose: Not Given Levothyroxine Sodium (Synthroid) 125 mcg PO DAILY@0630 [facility] Last Admin: 05/05/18 05:35 Dose: 125 mcg [facility] Last Admin: 05/04/18 18:01 Dose: 500 mg Metoprolol Tartrate (Lopressor) 50 mg PO BID [facility] Last Admin: 05/05/18 11:11 Dose: 50 mg Ondansetron HCl (Zofran Inj) 4 mg IVP Q6 PRN PRN Reason: Nausea/Vomiting Last Admin: 05/04/18 10:31 Dose: 4 mg Pantoprazole Sodium (Protonix Ec Tab) 40 mg PO DAILY [facility] Last Admin: 05/05/18 10:00 Dose: 40 mg Rifaximin (Xifaxan) 550 mg PO BID [facility]; Protocol Last Admin: 05/05/18 10:00 Dose: 550 mg Sitagliptin Phosphate (Januvia) 50 mg PO DAILY [facility] Last Admin: 05/05/18 10:00 Dose: 50 mg Spironolactone (Aldactone) 25 mg PO DAILY [facility] Last Admin: 05/04/18 10:27 Dose: Not Given - Labs Labs: 05/05/18 06:46 05/05/18 06:46 PT 12.4 SECONDS (9.7-12.2) H 05/01/18 11:20 INR 1.1 05/01/18 11:20 - Constitutional Appears: No Acute Distress - Head Exam Head Exam: ATRAUMATIC, NORMOCEPHALIC - Neck Exam Neck Exam: absent: Lymphadenopathy, Thyromegaly - Respiratory Exam Respiratory Exam: NORMAL BREATHING PATTERN. absent: Rales, Rhonchi, Wheezes - Cardiovascular Exam Cardiovascular Exam: Clicks, +S1, +S2. absent: Gallop, Rubs, Murmur - GI/Abdominal Exam GI & Abdominal Exam: Soft, Normal Bowel Sounds. absent: Tenderness, Mass, Organomegaly - Rectal Exam Rectal Exam: Deferred - Extremities Exam Extremities Exam: absent: Calf Tenderness, Pedal Edema Assessment and Plan (1) Hepatic encephalopathy Assessment & Plan: Mental status is unchanged. Will observe after saline and albumin. Status: Acute
--- NOTE | 2018-05-05 16:20 | CP.PCM.PN ---
<Keon Vale Milka - Last Filed: 05/05/18 16:06> Subjective - Date & Time of Evaluation Date of Evaluation: 05/05/18 Time of Evaluation: 16:20 - Subjective Subjective: Nephrology progress note - Kavin PGY - 2 Patient seen and examined at bedside. No acute overnight events. Patient denies any acute complaints, including abdominal pain, urinary frequency, urgency, or dysuria. Objective - Vital Signs/Intake and Output Vital Signs (last 24 hours): Temp Pulse Resp BP Pulse Ox 98.4 F 54 L 20 113/66 100 05/05/18 15:59 05/05/18 15:59 05/05/18 15:59 05/05/18 15:59 05/05/18 15:59 Intake and Output: 05/05/18 05/05/18 06:59 18:59 Intake Total 2150 350 Balance 2150 350 - Medications Medications: Current Medications Amlodipine Besylate (Norvasc) 5 mg PO DAILY [facility] Last Admin: 05/05/18 10:00 Dose: 5 mg Dextrose (Dextrose 50% Inj) 0 ml IV STAT PRN; Protocol PRN Reason: Hypoglycemia Protocol Dextrose (Glutose 15) 0 gm PO ONCE PRN; Protocol PRN Reason: Hypoglycemia Protocol Furosemide (Lasix) 20 mg PO DAILY [facility] Last Admin: 05/04/18 10:27 Dose: Not Given Glucagon (Glucagen Diagnostic Kit) 0 mg IM STAT PRN; Protocol PRN Reason: Hypoglycemia Protocol Dextrose (Dextrose 5% In Water 1000 Ml) 1,000 mls @ 0 mls/hr IV .Q0M PRN; Protocol PRN Reason: Hypoglycemia Protocol Insulin Aspart (Novolog) 0 unit SC ACHS [facility]; Protocol Last Admin: 05/05/18 13:07 Dose: 2 units Lactulose (Enulose) 20 gm PO TID [facility] Last Admin: 05/05/18 13:59 Dose: Not Given Levothyroxine Sodium (Synthroid) 125 mcg PO DAILY@0630 [facility] Last Admin: 05/05/18 05:35 Dose: 125 mcg Metformin HCl (Glucophage) 500 mg PO BIDCC [facility] Last Admin: 05/04/18 18:01 Dose: 500 mg Metoprolol Tartrate (Lopressor) 50 mg PO BID [facility] Last Admin: 05/05/18 11:11 Dose: 50 mg Ondansetron HCl (Zofran Inj) 4 mg IVP Q6 PRN PRN Reason: Nausea/Vomiting Last Admin: 05/04/18 10:31 Dose: 4 mg Pantoprazole Sodium (Protonix Ec Tab) 40 mg PO DAILY [facility] Last Admin: 05/05/18 10:00 Dose: 40 mg Rifaximin (Xifaxan) 550 mg PO BID [facility]; Protocol Last Admin: 05/05/18 10:00 Dose: 550 mg Sitagliptin Phosphate (Januvia) 50 mg PO DAILY [facility] Last Admin: 05/05/18 10:00 Dose: 50 mg Spironolactone (Aldactone) 25 mg PO DAILY [facility] Last Admin: 05/04/18 10:27 Dose: Not Given - Labs Labs: 05/05/18 06:46 05/05/18 06:46 PT 12.4 SECONDS (9.7-12.2) H 05/01/18 11:20 INR 1.1 05/01/18 11:20 - Constitutional Appears: Well - Head Exam Head Exam: ATRAUMATIC, NORMAL INSPECTION, NORMOCEPHALIC - Eye Exam Eye Exam: EOMI, Normal appearance, PERRL Pupil Exam: NORMAL ACCOMODATION, PERRL - ENT Exam ENT Exam: Mucous Membranes Moist, Normal Exam - Neck Exam Neck Exam: Full ROM, Normal Inspection. absent: Lymphadenopathy - Respiratory Exam Respiratory Exam: Clear to Ausculation Bilateral, NORMAL BREATHING PATTERN - Cardiovascular Exam Cardiovascular Exam: REGULAR RHYTHM, +S1, +S2. absent: Murmur - GI/Abdominal Exam GI & Abdominal Exam: Soft, Normal Bowel Sounds. absent: Tenderness - Extremities Exam Extremities Exam: Full ROM, Normal Capillary Refill, Normal Inspection. absent: Joint Swelling, Pedal Edema - Back Exam Additional comments: mild bilateral le edema, trace - Neurological Exam Neurological Exam: Alert, Awake, CN II-XII Intact, Normal Gait, Oriented x3 - Psychiatric Exam Psychiatric exam: Normal Affect, Normal Mood - Skin Skin Exam: Dry, Intact, Normal Color, Warm Assessment and Plan - Assessment and Plan (Free Text) Assessment: 83 year old female with pertinent medical history of hep C presenting for altered menal status, nephrology on consult for LESLEY Plan Urine lytes were obtained yesterday after lasix was held, revealing a U Na of 47 and a FeNa calculated to be .6%, indicating pre-renal/hypoperfusion LESLEY. Patient's creatinine responded well to fluid hydration yesterday. - Hold diuretics aldactone and lasix - Hold Metformin to prevent lactic acidosis - Complements pending <Umer Chavez - Last Filed: 05/06/18 08:29> Objective - Vital Signs/Intake and Output Vital Signs (last 24 hours): Temp Pulse Resp BP Pulse Ox 98.1 F 61 20 134/74 98 05/06/18 00:00 05/06/18 00:00 05/06/18 00:00 05/06/18 00:00 05/06/18 00:00 Intake and Output: 05/06/18 05/06/18 06:59 18:59 Intake Total 240 Balance 240 - Medications Medications: Current Medications Amlodipine Besylate (Norvasc) 5 mg PO DAILY [facility] Last Admin: 05/05/18 10:00 Dose: 5 mg Dextrose (Dextrose 50% Inj) 0 ml IV STAT PRN; Protocol PRN Reason: Hypoglycemia Protocol Dextrose (Glutose 15) 0 gm PO ONCE PRN; Protocol PRN Reason: Hypoglycemia Protocol Furosemide (Lasix) 20 mg PO DAILY [facility] Last Admin: 05/04/18 10:27 Dose: Not Given Glucagon (Glucagen Diagnostic Kit) 0 mg IM STAT PRN; Protocol PRN Reason: Hypoglycemia Protocol Dextrose (Dextrose 5% In Water 1000 Ml) 1,000 mls @ 0 mls/hr IV .Q0M PRN; Protocol PRN Reason: Hypoglycemia Protocol Insulin Aspart (Novolog) 0 unit SC [facility]; Protocol Last Admin: 05/06/18 07:39 Dose: 2 units Lactulose (Enulose) 20 gm PO TID [facility] Last Admin: 05/05/18 19:45 Dose: Not Given Levothyroxine Sodium (Synthroid) 125 mcg PO DAILY@0630 [facility] Last Admin: 05/06/18 05:32 Dose: 125 mcg Metformin [facility] (Glucophage) [facility] Last Admin: 05/04/18 18:01 Dose: 500 mg Metoprolol Tartrate (Lopressor) 50 mg PO BID [facility] Last Admin: 05/05/18 17:20 Dose: Not Given Ondansetron HCl (Zofran Inj) 4 mg IVP Q6 PRN PRN Reason: Nausea/Vomiting Last Admin: 05/04/18 10:31 Dose: 4 mg Pantoprazole Sodium (Protonix Ec Tab) 40 mg PO DAILY [facility] Last Admin: 05/05/18 10:00 Dose: 40 mg Rifaximin (Xifaxan) 550 mg PO BID [facility]; Protocol Last Admin: 05/05/18 17:18 Dose: 550 mg Sitagliptin Phosphate (Januvia) 50 mg PO DAILY [facility] Last Admin: 05/05/18 10:00 Dose: 50 mg Spironolactone (Aldactone) 25 mg PO DAILY [facility] Last Admin: 05/04/18 10:27 Dose: Not Given - Labs Labs: 05/05/18 06:46 05/05/18 06:46 PT 12.4 SECONDS (9.7-12.2) H 05/01/18 11:20 INR 1.1 05/01/18 11:20 Attending/Attestation - Attestation I have personally seen and examined this patient.: Yes I have fully participated in the care of the patient.: Yes I have reviewed all pertinent clinical information, including history, physical exam and plan: Yes Notes (Text): Patient seen and examined; I agree with the resident's note as above with the edelmira louise additions/edits: 83 yo F w/ pmh of htn, dm, untreated hep C w/ liver cirrhosis, admitted with recurrent hepatic encephalopathy, nephrology following for acute kidney injury; Consistent with pre-renal etiology of LESLEY; patient given 2L NS over the past day with improvement in renal function; BP also much improved; goes against hepatorenal syndrome; Notes indicate patient able to feed herself but unclear how much she is actually consuming; is alert but not verbalizing much; recommend to continue to hold diuretics for now, especially with patient continuing to receive lactulose; can restart diuretics with just lasix 20 mg PO daily once PO intake is adequate; Agree with decreasing BP med also;
[2018-05-06 00:29] VITALS: RESP 20
--- NOTE | 2018-05-06 03:59 | PN ---
DATE: 05/05/2018 SUBJECTIVE: The patient is an 83-year-old female. The patient was seen and examined at the bedside, looking comfortable, no acute event happened overnight. No fever, no chills. No hematuria or hematochezia. No headache. No dizziness. No chest pain. No palpitation. PHYSICAL EXAMINATION: VITAL SIGNS: Temperature 98.4, pulse 54, respiratory rate 20, blood pressure 113/66, pulse oximetry 100. HEENT: Head: Normocephalic and atraumatic. Eyes, PERRLA. Extraocular muscles are intact. Conjunctivae clear. Nose patent. NECK: Supple. No carotid bruits. No JVD or thyromegaly. CHEST: Bilateral symmetrical. HEART: S1 and S2 positive. LUNGS: Clear to auscultation. ABDOMEN: Soft. Bowel sounds present. No organomegaly. EXTREMITIES: No edema, no cyanosis. NEUROLOGIC: The patient is awake, alert. Moving all four extremities. No focal deficits. MEDICATIONS: Dextrose, Lasix, Glucagon, insulin, lactulose, Synthroid, metformin, Lopressor, Protonix, rifaximin, Januvia, spironolactone. LABORATORY DATA: White blood cell 3.8, hemoglobin 11.8, hematocrit 35.5, platelets 58. Sodium 138, potassium 4.1, BUN 27, creatinine 1.2, glucose 171. ASSESSMENT AND PLAN: Ms. Jackie Pena is an 83-year-old lady with leukopenia, thrombocytopenia, renal insufficiency, hyperglycemia, history of hepatitis C positive, presenting with altered mental status. Nephrology consult was called for acute kidney injury. Urine lytes were obtained, after Lasix was held, revealed urine sodium 47 indicating prerenal acute kidney injury. Creatinine responded well to fluid hydration, hold diuretics Aldactone and Lasix, hold metformin as the patient has lactic acidosis, appreciated market development director input. The patient has history of cirrhosis, ascites, seen by Dr. Nir Cho, porter sample case. CAT scan of the head done and reviewed by me. Seen by Dr. Nader Caruso. History of hypothyroidism, positive unclear pneumonia due to cirrhosis that causes altered mental status. Continue present treatment. Talked to the patient about discharge planning. We will follow up. Yulia Dominguez MD JENNIFER
[2018-05-06] MEDS: Levothyroxine 125 MCG TAB PO SCH (05:32)
[2018-05-06] MEDS: (Novolog) Insulin Aspart, Recombinant 100 u/ml 10 ml vial SC SCH ×4 (07:39→21:20)
[2018-05-06] MEDS: Pantoprazole 40 mg EC Tab PO SCH (09:57)
--- NOTE | 2018-05-06 11:15 | CP.PCM.PN ---
<Maury Pruitt - Last Filed: 05/06/18 16:58> Subjective - Date & Time of Evaluation Date of Evaluation: 05/06/18 Time of Evaluation: 06:00 - Subjective Subjective: Patient seen and evaluated bedside no acute issues overnight. Patient denies chest pain, SOB, fever, chills, abdominal pain or any other complaints at this time. Patient had bowel movement. Objective - Vital Signs/Intake and Output Vital Signs (last 24 hours): Temp Pulse Resp BP Pulse Ox 97.8 F 58 L 20 111/70 98 05/06/18 08:00 05/06/18 08:00 05/06/18 08:00 05/06/18 08:00 05/06/18 08:00 Intake and Output: 05/06/18 05/06/18 06:59 18:59 Intake Total 240 Balance 240 - Medications Medications: Current Medications Amlodipine Besylate (Norvasc) 5 mg PO DAILY [facility] Last Admin: 05/06/18 09:57 Dose: 5 mg Dextrose (Dextrose 50% Inj) 0 ml IV STAT PRN; Protocol PRN Reason: Hypoglycemia Protocol Dextrose (Glutose 15) 0 gm PO ONCE PRN; Protocol PRN Reason: Hypoglycemia Protocol Furosemide (Lasix) 20 mg PO DAILY [facility] Last Admin: 05/04/18 10:27 Dose: Not Given Glucagon (Glucagen Diagnostic Kit) 0 mg IM STAT PRN; Protocol PRN Reason: Hypoglycemia Protocol Dextrose (Dextrose 5% In Water 1000 Ml) 1,000 mls @ 0 mls/hr IV .Q0M PRN; Protocol PRN Reason: Hypoglycemia Protocol Insulin Aspart (Novolog) 0 unit SC ACHS [facility]; Protocol Last Admin: 05/06/18 07:39 Dose: 2 units Lactulose (Enulose) 20 gm PO TID [facility] Last Admin: 05/06/18 09:57 Dose: 20 gm Levothyroxine Sodium (Synthroid) 125 mcg PO DAILY@0630 [facility] Last Admin: 05/06/18 05:32 Dose: 125 mcg Metformin HCl (Glucophage) 500 mg PO BIDCC [facility] Last Admin: 05/04/18 18:01 Dose: 500 mg Metoprolol Tartrate (Lopressor) 50 mg PO BID [facility] Last Admin: 05/06/18 09:58 Dose: 50 mg Ondansetron HCl (Zofran Inj) 4 mg IVP Q6 PRN PRN Reason: Nausea/Vomiting Last Admin: 05/04/18 10:31 Dose: 4 mg Pantoprazole Sodium (Protonix Ec Tab) 40 mg PO DAILY [facility] Last Admin: 05/06/18 09:57 Dose: 40 mg Rifaximin (Xifaxan) 550 mg PO BID [facility]; Protocol Last Admin: 05/06/18 09:57 Dose: 550 mg Sitagliptin Phosphate (Januvia) 50 mg PO DAILY [facility] Last Admin: 05/06/18 09:57 Dose: 50 mg Spironolactone (Aldactone) 25 mg PO DAILY [facility] Last Admin: 05/04/18 10:27 Dose: Not Given - Labs Labs: 05/05/18 06:46 05/05/18 06:46 PT 12.4 SECONDS (9.7-12.2) H 05/01/18 11:20 INR 1.1 05/01/18 11:20 - Constitutional Appears: Non-toxic, No Acute Distress - Head Exam Head Exam: ATRAUMATIC, NORMAL INSPECTION, NORMOCEPHALIC - Eye Exam Eye Exam: Normal appearance - ENT Exam ENT Exam: Mucous Membranes Moist - Respiratory Exam Respiratory Exam: Clear to Ausculation Bilateral, NORMAL BREATHING PATTERN - Cardiovascular Exam Cardiovascular Exam: REGULAR RHYTHM, +S1, +S2 - GI/Abdominal Exam GI & Abdominal Exam: Soft. absent: Tenderness - Extremities Exam Extremities Exam: Pedal Edema - Neurological Exam Neurological Exam: Alert, Awake Assessment and Plan - Assessment and Plan (Free Text) Assessment: 83 year old female with pertinent medical history of hep C presenting for altered menal status, nephrology on consult for LESLEY Plan: LESLEY - Urine lytes revealeda U Na of 47 and a FeNa calculated to be .6%, indicating pre-renal/hypoperfusion LESLEY. - Patient's creatinine responded well to initial fluid hydration of 2L NS - Hold diuretics aldactone and lasix - Hold Metformin to prevent lactic acidosis - Complement level pending Hepatic Encephalopathy - mental status improving - lactulose - rifaxamin <Umer Chavez - Last Filed: 05/07/18 09:03> Objective - Vital Signs/Intake and Output Vital Signs (last 24 hours): Temp Pulse Resp BP Pulse Ox 98.7 F 68 20 115/68 98 05/07/18 07:35 05/07/18 07:35 05/07/18 07:35 05/07/18 07:35 05/07/18 07:35 Intake and Output: 05/07/18 05/07/18 06:59 18:59 Intake Total 420 Balance 420 - Medications Medications: Current Medications Dextrose (Dextrose 50% Inj) 0 ml IV STAT PRN; Protocol PRN Reason: Hypoglycemia Protocol Dextrose (Glutose 15) 0 gm PO ONCE PRN; Protocol PRN Reason: Hypoglycemia Protocol Furosemide (Lasix) 20 mg PO DAILY [facility] Last Admin: 05/04/18 10:27 Dose: Not Given Glucagon (Glucagen Diagnostic Kit) 0 mg IM STAT PRN; Protocol PRN Reason: Hypoglycemia Protocol Dextrose (Dextrose 5% In Water 1000 Ml) 1,000 mls @ 0 mls/hr IV .Q0M PRN; Protocol PRN Reason: Hypoglycemia Protocol Insulin Aspart (Novolog) 0 unit SC ACHS [facility]; Protocol Last Admin: 05/07/18 07:57 Dose: 2 units Lactulose (Enulose) 20 gm PO TID [facility] Last Admin: 05/06/18 19:25 Dose: Not Given Levothyroxine Sodium (Synthroid) 125 mcg PO DAILY@0630 [facility] Last Admin: 05/07/18 05:46 Dose: 125 mcg [facility] Last Admin: 05/04/18 18:01 Dose: 500 mg Metoprolol Tartrate (Lopressor) 50 mg PO BID [facility] Last Admin: 05/06/18 17:30 Dose: Not Given Ondansetron HCl (Zofran Inj) 4 mg IVP Q6 PRN PRN Reason: Nausea/Vomiting Last Admin: 05/04/18 10:31 Dose: 4 mg Pantoprazole Sodium (Protonix Ec Tab) 40 mg PO DAILY [facility] Last Admin: 05/06/18 09:57 Dose: 40 mg Rifaximin (Xifaxan) 550 mg PO BID [facility]; Protocol Last Admin: 05/06/18 19:26 Dose: Not Given Sitagliptin Phosphate (Januvia) 50 mg PO DAILY [facility] Last Admin: 05/06/18 09:57 Dose: 50 mg Spironolactone (Aldactone) 25 mg PO DAILY [facility] Last Admin: 05/04/18 10:27 Dose: Not Given - Labs Labs: 05/05/18 06:46 05/05/18 06:46 PT 12.4 SECONDS (9.7-12.2) H 05/01/18 11:20 INR 1.1 05/01/18 11:20 Attending/Attestation - Attestation I have personally seen and examined this patient.: Yes I have fully participated in the care of the patient.: Yes I have reviewed all pertinent clinical information, including history, physical exam and plan: Yes Notes (Text): Patient seen and examined; I agree with the resident's note as above with the following additions/edits: 83 yo F w/ pmh of htn, dm, untreated hep C w/ liver cirrhosis, admitted with recurrent hepatic encephalopathy, nephrology following for acute kidney injury; Patient refusing labs today; per nursing staff, consuming about 50% of diet; appears euvolemic on exam; BP robust; given age, would benefit from less stringent BP control; will stop amlodipine; Regarding diuretics, was started due to concern for ascites collection which apparently was never large volume; should continue to hold off on diuretics until patient has good PO intake and signs of sodium excess are seen on exam (ie. ascites, edema).
--- NOTE | 2018-05-06 18:29 | CP.PCM.PN ---
Subjective - Date & Time of Evaluation Date of Evaluation: 05/06/18 Time of Evaluation: 18:28 - Subjective Subjective: Patient is more alert and talkative today. She again denies having abdominal pain, nausea, vomiting, diarrhea. Objective - Vital Signs/Intake and Output Vital Signs (last 24 hours): Temp Pulse Resp BP Pulse Ox 97.7 F 48 L 20 95/55 L 100 05/06/18 16:00 05/06/18 16:00 05/06/18 16:00 05/06/18 16:00 05/06/18 16:00 Intake and Output: 05/06/18 05/06/18 06:59 18:59 Intake Total 240 350 Balance 240 350 - Medications Medications: Current Medications Amlodipine Besylate (Norvasc) 5 mg PO DAILY [facility] Last Admin: 05/06/18 09:57 Dose: 5 mg Dextrose (Dextrose 50% Inj) 0 ml IV STAT PRN; Protocol PRN Reason: Hypoglycemia Protocol Dextrose (Glutose 15) 0 gm PO ONCE PRN; Protocol PRN Reason: Hypoglycemia Protocol Furosemide (Lasix) 20 mg PO DAILY [facility] Last Admin: 05/04/18 10:27 Dose: Not Given Glucagon (Glucagen Diagnostic Kit) 0 mg IM STAT PRN; Protocol PRN Reason: Hypoglycemia Protocol Dextrose (Dextrose 5% In Water 1000 Ml) 1,000 mls @ 0 mls/hr IV .Q0M PRN; Protocol PRN Reason: Hypoglycemia Protocol Insulin Aspart (Novolog) 0 unit SC ACHS [facility]; Protocol Last Admin: 05/06/18 17:30 Dose: 4 units Lactulose (Enulose) 20 gm PO TID [facility] Last Admin: 05/06/18 17:29 Dose: 20 gm Levothyroxine Sodium (Synthroid) 125 mcg PO DAILY@0630 [facility] Last Admin: 05/06/18 05:32 Dose: 125 mcg [facility] Last Admin: 05/04/18 18:01 Dose: 500 mg Metoprolol Tartrate (Lopressor) 50 mg PO BID [facility] Last Admin: 05/06/18 17:30 Dose: Not Given Ondansetron HCl (Zofran Inj) 4 mg IVP Q6 PRN PRN Reason: Nausea/Vomiting Last Admin: 05/04/18 10:31 Dose: 4 mg Pantoprazole Sodium (Protonix Ec Tab) 40 mg PO DAILY [facility] Last Admin: 05/06/18 09:57 Dose: 40 mg Rifaximin (Xifaxan) 550 mg PO BID [facility]; Protocol Last Admin: 05/06/18 09:57 Dose: 550 mg Sitagliptin Phosphate (Januvia) 50 mg PO DAILY [facility] Last Admin: 05/06/18 09:57 Dose: 50 mg Spironolactone (Aldactone) 25 mg PO DAILY [facility] Last Admin: 05/04/18 10:27 Dose: Not Given - Labs Labs: 05/05/18 06:46 05/05/18 06:46 PT 12.4 SECONDS (9.7-12.2) H 05/01/18 11:20 INR 1.1 05/01/18 11:20 - Constitutional Appears: No Acute Distress - Head Exam Head Exam: ATRAUMATIC, NORMOCEPHALIC - Eye Exam Eye Exam: EOMI, PERRL - Neck Exam Neck Exam: absent: Lymphadenopathy, Thyromegaly - Respiratory Exam Respiratory Exam: NORMAL BREATHING PATTERN. absent: Rales, Rhonchi, Wheezes - Cardiovascular Exam Cardiovascular Exam: REGULAR RHYTHM, +S1, +S2. absent: Gallop, Rubs, Murmur - GI/Abdominal Exam GI & Abdominal Exam: Soft, Normal Bowel Sounds. absent: Tenderness, Mass, Org anomegaly - Rectal Exam Rectal Exam: Deferred - Extremities Exam Extremities Exam: absent: Calf Tenderness, Pedal Edema Assessment and Plan (1) Hepatic encephalopathy Assessment & Plan: Patient's mental status has improved since yesterday. Will repeat labs and observe. Status: Acute
[2018-05-07 00:15] VITALS: O2SAT 98
--- NOTE | 2018-05-07 02:41 | PN ---
DATE: 05/06/2018 SUBJECTIVE: The patient is an 83-year-old female. The patient was seen and examined at the bedside on 05/06/2018. Looking comfortable. No change in the status. No fever. No chills. No nausea, vomiting or diarrhea. No hematuria or hematochezia. No headache or dizziness. No chest pain. No palpitation. PHYSICAL EXAMINATION: VITAL SIGNS: Temperature 97.8, pulse 58, respiratory rate 20, blood pressure 112/70, pulse oxymetry 98%. HEENT: Head: Normocephalic and atraumatic. Eyes, PERRLA. Extraocular muscles are intact. Conjunctivae clear. Nose patent. Mucous membranes moist. NECK: Supple. No carotid bruit. No JVD or thyromegaly. CHEST: Bilaterally symmetrical. HEART: S1 and S2 positive. LUNGS: Clear to auscultation. ABDOMEN: Soft. Bowel sounds present. No organomegaly. EXTREMITIES: No edema, no cyanosis. NEUROLOGIC: The patient is awake, alert. Follows simple commands. MEDICATIONS: Dextrose, Lasix, glucagon, insulin, lactulose, levothyroxine, metformin, metoprolol, Zofran, Protonix, rifaximin, Januvia, and Aldactone. LABORATORY DATA: White blood cells 3.8, hemoglobin 11.8, hematocrit 35.5, platelets 48. Sodium 136, potassium 4.1, BUN 27, calcium 1.4, glucose 171. ASSESSMENT AND PLAN: Mrs. Jackie Pena is an 83-year-old female with leukopenia, thrombocytopenia, renal insufficiency, hyperglycemia, history of hepatitis C positive, came in with altered mental status, acute kidney injury, hepatic encephalopathy. Urinalysis revealed urine sodium of 47, fractional excretion of sodium calculated to be 0.6% indicating prerenal hypoperfusion acute kidney injury. The patient was given a good hydration. Hold diuretics, Aldactone and Lasix. Hold metformin to prevent lactic acidosis. orders are pending. Mental status improving. Continue lactulose and rifaximin. Gastrointestinal and deep venous prophylaxis. Repeat labs. Appreciated Dr. Maury Esteban and Dr. Cho's input. Seen by Nephrology, Dr. Chavez. We will follow up. Yulia Dominguez MD [facility] # [id number] JENNIFER
[2018-05-07] MEDS: Levothyroxine 125 MCG TAB PO SCH (05:46)
[2018-05-07] MEDS: (Novolog) Insulin Aspart, Recombinant 100 u/ml 10 ml vial SC SCH ×4 (07:57→21:31)
--- NOTE | 2018-05-07 07:57 | CP.PCM.PN ---
Subjective - Date & Time of Evaluation Date of Evaluation: 05/07/18 Time of Evaluation: 07:53 - Subjective Subjective: Patient remains more alert, speech is clearer and content is more complex. Patient denies having nausea, vomiting, abdominal pain. He has not had a bowel movement so far this morning. No blood work is available from yesterday or toda y except for glucometer readings. Objective - Vital Signs/Intake and Output Vital Signs (last 24 hours): Temp Pulse Resp BP Pulse Ox 98.7 F 68 20 115/68 98 05/07/18 07:35 05/07/18 07:35 05/07/18 07:35 05/07/18 07:35 05/07/18 07:35 Intake and Output: 05/07/18 05/07/18 06:59 18:59 Intake Total 420 Balance 420 - Medications Medications: Current Medications Dextrose (Dextrose 50% Inj) 0 ml IV STAT PRN; Protocol PRN Reason: Hypoglycemia Protocol Dextrose (Glutose 15) 0 gm PO ONCE PRN; Protocol PRN Reason: Hypoglycemia Protocol Furosemide (Lasix) 20 mg PO DAILY [facility] Last Admin: 05/04/18 10:27 Dose: Not Given Glucagon (Glucagen Diagnostic Kit) 0 mg IM STAT PRN; Protocol PRN Reason: Hypoglycemia Protocol Dextrose (Dextrose 5% In Water 1000 Ml) 1,000 mls @ 0 mls/hr IV .Q0M PRN; Protocol PRN Reason: Hypoglycemia Protocol Insulin Aspart (Novolog) 0 unit SC ACHS [facility]; Protocol Last Admin: 05/06/18 21:20 Dose: 3 units Lactulose (Enulose) 20 gm PO TID [facility] Last Admin: 05/06/18 19:25 Dose: Not Given Levothyroxine Sodium (Synthroid) 125 mcg PO DAILY@0630 [facility] Last Admin: 05/07/18 05:46 Dose: 125 mcg Met[facility] ([facility]) [facility] Last Admin: 05/04/18 18:01 Dose: 500 mg Metoprolol Tartrate (Lopressor) 50 mg PO BID [facility] Last Admin: 05/06/18 17:30 Dose: Not Given Ondansetron HCl (Zofran Inj) 4 mg IVP Q6 PRN PRN Reason: Nausea/Vomiting Last Admin: 05/04/18 10:31 Dose: 4 mg Pantoprazole Sodium (Protonix Ec Tab) 40 mg PO DAILY [facility] Last Admin: 05/06/18 09:57 Dose: 40 mg Rifaximin (Xifaxan) 550 mg PO BID [facility]; Protocol Last Admin: 05/06/18 19:26 Dose: Not Given Sitagliptin Phosphate (Januvia) 50 mg PO DAILY [facility] Last Admin: 05/06/18 09:57 Dose: 50 mg Spironolactone (Aldactone) 25 mg PO DAILY [facility] Last Admin: 05/04/18 10:27 Dose: Not Given - Labs Labs: 05/05/18 06:46 05/05/18 06:46 PT 12.4 SECONDS (9.7-12.2) H 05/01/18 11:20 INR 1.1 05/01/18 11:20 - Constitutional Appears: No Acute Distress - Head Exam Head Exam: ATRAUMATIC, NORMOCEPHALIC - Eye Exam Eye Exam: EOMI, PERRL - Neck Exam Neck Exam: absent: Lymphadenopathy, Thyromegaly - Respiratory Exam Respiratory Exam: NORMAL BREATHING PATTERN. absent: Rales, Rhonchi, Wheezes - Cardiovascular Exam Cardiovascular Exam: REGULAR RHYTHM, +S1, +S2. absent: Gallop, Rubs, Murmur - GI/Abdominal Exam GI & Abdominal Exam: Soft, Normal Bowel Sounds. absent: Tenderness, Mass, Organomegaly - Rectal Exam Rectal Exam: Deferred - Extremities Exam Extremities Exam: absent: Calf Tenderness, Pedal Edema Assessment and Plan (1) Hepatic encephalopathy Assessment & Plan: Patient has cirrhosis secondary to hepatitis C, with hypersplenism and hepatic encephalopathy. Patient has been refusing lactulose according to nursing staff. The encephalopathy did not respond well to rifaximin, but seems to be improving with hydration. Status: Acute
[2018-05-07] MEDS: Pantoprazole 40 mg EC Tab PO SCH (09:56)
[2018-05-07 11:49] LABS: BASO % 0.5 % (0.0-2.0); EOS # 0.1 K/uL (0.0-0.7); EOS % 1.5 % (0.0-4.0); HEMOGLOBIN 11.2 g/dL (11.0-16.0); LYMPH # 1.2 K/uL (1.0-4.3); LYMPH % 26.2 % (20.0-40.0); MEAN CELL VOLUME 95.7 fL (81.0-99.0); MEAN CORPUSCULAR HEMOGLOBIN 32.2 pg (27.0-31.0); MEAN CORPUSCULAR HGB CONC 33.7 g/dL (33.0-37.0); MEAN PLATELET VOLUME 10.1 fL (7.2-11.7); MONO # 0.5 K/uL (0.0-0.8); MONO % 10.9 % (0.0-10.0); NEUT # 2.7 K/uL (1.8-7.0); NEUT % 60.9 % (50.0-75.0); NRBC % 0.1 % (0.0-2.0); RBC 3.47 Mil/uL (3.80-5.20); WHITE BLOOD COUNT 4.4 K/uL (4.8-10.8)
[2018-05-07 12:16] LABS: ALB/GLOB RATIO 0.7 (1.0-2.1); ALBUMIN 2.9 g/dL (3.5-5.0); CALCIUM 8.4 mg/dl (8.6-10.4)
[2018-05-07 15:27] VITALS: BP 100/65; PULSE 52; TEMP 97.9
--- NOTE | 2018-05-14 08:04 | DS ---
The patient was seen and examined on the bedside 05/07/2018. This discharge summary is for 05/07/2018. CHIEF COMPLAINT: Altered mental status. HISTORY OF PRESENT ILLNESS: Ms. Jackie Pena is an 83-year-old female with past medical history of diabetes mellitus, hypertension, hypothyroidism, brought to ER for evaluation of change in mental status. Actually, the patient's home health aide noticed that the patient has change in mental status. Actually, the patient was discharged on 04/19/2018 after treating because the patient has cirrhosis of the liver, high ammonia level. Paracentesis was done. Now again, we admitted the patient. Consult called with GI. Chest x-ray done. Abdominal ultrasound done. CAT scan of the head was done because of altered mental status. Seen by Dr. Nir Cho, louver mortiser operator; Dr. Umer Chavez, umbrella cutter; Foreign Caruso MD, neurologist. The patient improved, was sent to [facility]. PAST MEDICAL HISTORY: Diabetes mellitus, hypertension, hypothyroidism, cirrhosis of the liver, noncompliant. SOCIAL HISTORY: No smoking, no drugs, no ethanol as per the patient. FAMILY HISTORY: Father and mother are noncontributory. REVIEW OF SYSTEMS: The patient was seen and examined on the bedside and looking comfortable. No fever. No chills. No hematuria or hematochezia. No headache or dizziness. No chest pain. No palpitation. Mental level is better. PHYSICAL EXAMINATION: VITAL SIGNS: Temperature 98.7, pulse 68, respiratory rate 20, blood pressure 115/65, pulse oximetry of 98%. HEENT: Head normocephalic and atraumatic. Eyes: PERRLA. Extraocular muscles intact. Conjunctivae clear. Nose patent. Mucous membrane moist. NECK: Supple. No carotid bruit. No JVD or thyromegaly. CHEST: Bilaterally symmetrical. HEART: S1, S2 positive. LUNGS: Clear to auscultation. ABDOMEN: Soft, bowel sounds positive. No organomegaly. EXTREMITIES: No edema, no cyanosis. NEUROLOGIC: The patient is awake, alert. Moving all four extremities. No focal deficits. MEDICATIONS: Dextrose, Lasix, insulin, Lactulose, levothyroxine, metformin, metoprolol, rifaximin, Januvia, Aldactone. LABORATORY DATA: White blood cell 3.8, hemoglobin 11.5, hematocrit 35.5, platelets 48. Sodium 136, potassium 4.1, BUN 37, creatinine 1.4, glucose 171. ASSESSMENT AND PLAN: Ms. Jackie Pena is an 83-year-old female with leukopenia, thrombocytopenia, renal insufficiency, hyperglycemia, came with hepatic encephalopathy, has cirrhosis, history of hepatitis C, hypersplenism. The patient is refusing Lactulose. She is noncompliant, urged to be compliant and gastropathy did not respond well to rifaximin but seems to be improving with hydration. History of diabetes mellitus. Seen by Gastroenterology, Dr. Nir Cho, umbrella cutter, and neurologist. The patient lives alone. She is not able to take care of herself. She is not able to do activities of daily living. The patient has a history of acute kidney injury. The patient got good hydration. Discharged to rehab. We will follow up there. Yulia Dominguez MD
== END 2018-05-07 21:51 | DRG 441 ==
LOC: C.ER 16:26 → C.3T 20:17
PROVIDERS: ADMIT Internal Medicine; ATTEND Internal Medicine
DX: K72.90 Hepatic failure, unspecified without coma (principal); G93.41 Metabolic encephalopathy; K74.60 Unspecified cirrhosis of liver; N17.9 Acute kidney failure, unspecified; E72.20 Disorder of urea cycle metabolism, unspecified; N39.0 Urinary tract infection, site not specified; R18.8 Other ascites; E87.2 Acidosis; E03.9 Hypothyroidism, unspecified; E11.9 Type 2 diabetes mellitus without complications; I10 Essential (primary) hypertension; B19.20 Unspecified viral hepatitis C without hepatic coma; D64.9 Anemia, unspecified; D69.6 Thrombocytopenia, unspecified; D72.819 Decreased white blood cell count, unspecified; E11.65 Type 2 diabetes mellitus with hyperglycemia; K21.9 Gastro-esophageal reflux disease without esophagitis; D73.1 Hypersplenism; K31.9 Disease of stomach and duodenum, unspecified; Z87.01 Personal history of pneumonia (recurrent); Z90.49 Acquired absence of other specified parts of digestive tract; Z91.19 Patient's noncompliance with other medical treatment and regimen